=== PATIENT | female | born 1970 | race Caucasian/White ===

== ENCOUNTER → 2020-02-21 12:20 | Outpatient (CLI) | payer MEDICARE, SELFPAY ==
[2020-02-21 12:44] LABS: Basophils % 0.6 % (0.1-2.0); Eosinophils # 0.2 K/mm3 (0.0-0.4); Eosinophils % 2.7 % (0.1-12.0); Hematocrit 36.1 % (37.0-47.0); Hemoglobin 11.5 g/dL (12.2-16.2); Lymphocytes % 28.5 % (10-50); Mean Corpuscular HGB Conc 31.9 g/dL (31.8-35.4); Mean Corpuscular Hemoglobin 27.2 pg (27.0-31.2); Mean Corpuscular Volume 85.2 fl (81-99); Mean Platelet Volume 7.9 fl (7.4-10.4); Monocytes # 0.5 K/mm3 (0.1-1.0); Monocytes % 7.2 % (1.7-9.3); Neutrophils # 4.3 K/mm3 (1.8-7.8); Neutrophils % 60.9 % (37.0-80.0); Platelet Count 233 K/mm3 (142-424); Red Blood Count 4.23 M/mm3 (4.20-5.40); Red Cell Distribution Width 15.6 % (11.5-17.5)
[2020-02-21 12:52] LABS: Prothrombin Time 20.6 seconds (9.4-11.8)
[2020-02-21 13:22] LABS: Alanine Aminotransferase 22 U/L (12-78); Albumin Level 3.9 g/dl (3.5-5.0); Albumin/Globulin Ratio 1.2 (1.1-1.8); Alkaline Phosphatase 99 U/L (38-126); Anion Gap 14.6 mEq/L (5-15); Aspartate Amino Transferase 25 U/L (14-36); Bilirubin,Total 0.4 mg/dl (0.2-1.3); Blood Urea Nitrogen 14 mg/dl (7-17); Calcium 9.4 mg/dl (8.4-10.2); Carbon Dioxide 32 mmol/L (22.0-30.0); Chloride 97 mmol/L (98-107); Chol/HDL Ratio 5.8 (1-3.5); Cholesterol 236 mg/dl (140-200); Estimated Glomerular Filt Rate 105 ml/min (>60); GFR (African American) 128 ML/MIN (>60); Globulin 3.2 g/dL (1.3-3.2); Glucose 236 mg/dl (74-100); HDL Cholesterol 41 mg/dl (40-60); Potassium 4.6 mmoL/L (3.5-5.1); Sodium 139 mmol/L (136-145); Total Protein,Serum 7.1 g/dl (6.3-8.2); Triglycerides 318 mg/dl (30-150); VLDL Cholesterol 64 mg/dL (0-40)
[2020-02-21 13:33] LABS: Direct LDL Cholesterol 128.52 mg/dL (100-129)
[2020-02-21 13:44] LABS: Hemoglobin A1C 9.4 % (4.0-6.0)
[2020-02-21 13:54] LABS: Thyroid Stimulating Hormone 1.32 uIU/mL (0.465-4.68)
== END ==
PROVIDERS: Visit Provider Family Medicine
DX: Z95.828 Presence of other vascular implants and grafts (principal); E11.9 Type 2 diabetes mellitus without complications; I10 Essential (primary) hypertension; Z51.81 Encounter for therapeutic drug level monitoring; Z79.01 Long term (current) use of anticoagulants; Z79.84 Long term (current) use of oral hypoglycemic drugs
CPT/HCPCS: 36415; 80053; 80061; 83036; 84443; 85025; 85610

== ENCOUNTER → 2020-05-13 17:21 | Outpatient (CLI) | payer MEDICARE, SELFPAY ==
[2020-05-15 16:03] LABS: Covid-19 Nasal PCR Sendout Lex Not Detected
== END ==
PROVIDERS: PCP Family Medicine; Visit Provider Family Medicine
DX: Z03.818 Encounter for observation for suspected exposure to other biological agents ruled out (principal)
CPT/HCPCS: U0004

== ENCOUNTER → 2020-05-21 09:21 | Outpatient (CLI) | payer MEDICARE, SELFPAY ==
[2020-05-21 11:34] LABS: INR 1.52 (0.9-1.1); Prothrombin Time 16.2 seconds (9.4-11.8)
[2020-05-21 16:01] LABS: Hemoglobin A1C 9.4 % (4.0-6.0)
== END ==
PROVIDERS: Visit Provider Family Medicine
DX: Z95.828 Presence of other vascular implants and grafts (principal); E11.9 Type 2 diabetes mellitus without complications; Z79.84 Long term (current) use of oral hypoglycemic drugs
CPT/HCPCS: 36415; 83036; 85610

== ENCOUNTER → 2020-07-02 10:05 | Outpatient (CLI) | payer MEDICARE, SELFPAY ==
[2020-07-02 11:53] LABS: Chloride 100 mmol/L (98-107); Potassium 4.5 mmoL/L (3.5-5.1); Sodium 139 mmol/L (136-145)
[2020-07-02 11:56] LABS: Alanine Aminotransferase 17 U/L (12-78); Albumin Level 4.2 g/dl (3.5-5.0); Albumin/Globulin Ratio 1.2 (1.1-1.8); Alkaline Phosphatase 99 U/L (38-126); Anion Gap 10.5 mEq/L (5-15); Aspartate Amino Transferase 20 U/L (14-36); Bilirubin,Total 0.3 mg/dl (0.2-1.3); Blood Urea Nitrogen 16 mg/dl (7-17); Carbon Dioxide 33 mmol/L (22.0-30.0); Estimated Glomerular Filt Rate 105 ml/min (>60); GFR (African American) 127 ML/MIN (>60); Globulin 3.4 g/dL (1.3-3.2); Glucose 130 mg/dl (74-100); Total Protein,Serum 7.6 g/dl (6.3-8.2)
[2020-07-02 12:18] LABS: INR 1.91 (0.9-1.1)
[2020-07-02 12:41] LABS: Hemoglobin A1C 8.8 % (4.0-6.0)
[2020-07-02 18:55] LABS: Microalbumin/Creatinine Ratio 28.3
[2020-07-02 18:59] LABS: Basophils # 0.1 K/mm3 (0-0.2); Basophils % 0.8 % (0.1-2.0); Eosinophils # 0.2 K/mm3 (0.0-0.4); Eosinophils % 2.3 % (0.1-12.0); Hematocrit 38.9 % (37.0-47.0); Hemoglobin 11.5 g/dL (12.2-16.2); Lymphocytes # 2.8 K/mm3 (0.7-4.5); Mean Corpuscular HGB Conc 29.6 g/dL (31.8-35.4); Mean Corpuscular Hemoglobin 24.7 pg (27.0-31.2); Mean Corpuscular Volume 83.5 fl (81-99); Mean Platelet Volume 8.9 fl (7.4-10.4); Monocytes # 0.7 K/mm3 (0.1-1.0); Monocytes % 7.6 % (1.7-9.3); Neutrophils # 5.2 K/mm3 (1.8-7.8); Neutrophils % 58.2 % (37.0-80.0); Platelet Count 324 K/mm3 (142-424); Red Blood Count 4.66 M/mm3 (4.20-5.40); Red Cell Distribution Width 16.1 % (11.5-17.5); White Blood Count 8.9 K/mm3 (4.8-10.8)
[2020-07-02 19:02] LABS: Creatinine,Urine Random 77 mg/dL (Not Estab.)
[2020-07-02 19:56] LABS: Thyroid Stimulating Hormone 2.61 uIU/mL (0.465-4.68)
== END ==
LOC: LAB 11:54 → LAB.DROPOF 07-03 08:25 → LAB 07-03 08:25
PROVIDERS: Visit Provider Family Medicine
DX: Z95.828 Presence of other vascular implants and grafts (principal); E11.9 Type 2 diabetes mellitus without complications; Z79.84 Long term (current) use of oral hypoglycemic drugs; Z51.81 Encounter for therapeutic drug level monitoring; Z79.01 Long term (current) use of anticoagulants
CPT/HCPCS: 36415; 80053; 82043; 82570; 83036; 84443; 85025; 85610

== ENCOUNTER → 2020-11-04 15:01 | Outpatient (CLI) | payer MEDICARE, SELFPAY ==
[2020-11-04 16:17] LABS: Prothrombin Time 17.2 seconds (10.1-12.5)
[2020-11-04 16:40] LABS: Alanine Aminotransferase 18 U/L (12-78); Albumin Level 4.5 g/dl (3.5-5.0); Albumin/Globulin Ratio 1.3 (1.1-1.8); Alkaline Phosphatase 110 U/L (38-126); Anion Gap 10.6 mEq/L (5-15); Aspartate Amino Transferase 22 U/L (14-36); Bilirubin,Total 0.5 mg/dl (0.2-1.3); Blood Urea Nitrogen 23 mg/dl (7-17); Calcium 9.8 mg/dl (8.4-10.2); Carbon Dioxide 32 mmol/L (22.0-30.0); Chloride 98 mmol/L (98-107); Chol/HDL Ratio 5.2 (1-3.5); Cholesterol 248 mg/dl (140-200); Estimated Glomerular Filt Rate 105 ml/min (>60); GFR (African American) 127 ML/MIN (>60); Globulin 3.4 g/dL (1.3-3.2); Glucose 213 mg/dl (74-100); HDL Cholesterol 48 mg/dl (40-60); Potassium 4.6 mmoL/L (3.5-5.1); Sodium 136 mmol/L (136-145); Total Protein,Serum 7.9 g/dl (6.3-8.2); Triglycerides 326 mg/dl (30-150); VLDL Cholesterol 65 mg/dL (0-40)
[2020-11-04 16:51] LABS: Direct LDL Cholesterol 140.68 mg/dL (100-129)
[2020-11-04 17:09] LABS: Thyroid Stimulating Hormone 1.37 uIU/mL (0.465-4.68)
== END ==
PROVIDERS: Visit Provider Family Medicine
DX: K29.70 Gastritis, unspecified, without bleeding (principal); E11.9 Type 2 diabetes mellitus without complications; E78.5 Hyperlipidemia, unspecified; Z51.81 Encounter for therapeutic drug level monitoring; Z79.01 Long term (current) use of anticoagulants; Z79.4 Long term (current) use of insulin
CPT/HCPCS: 36415; 80053; 80061; 84443; 85610

== ENCOUNTER → 2020-11-12 10:53 | Outpatient (CLI) | payer MEDICARE, SELFPAY ==
[2020-11-12 11:45] LABS: Basophils # 0.1 K/mm3 (0-0.2); Basophils % 0.6 % (0.1-2.0); Eosinophils # 0.4 K/mm3 (0.0-0.4); Eosinophils % 4.1 % (0.1-12.0); Hematocrit 36.7 % (37.0-47.0); Hemoglobin 11.3 g/dL (12.2-16.2); Lymphocytes # 2.8 K/mm3 (0.7-4.5); Mean Corpuscular HGB Conc 30.9 g/dL (31.8-35.4); Mean Corpuscular Hemoglobin 23.6 pg (27.0-31.2); Mean Corpuscular Volume 76.4 fl (81-99); Mean Platelet Volume 7.6 fl (7.4-10.4); Monocytes # 0.5 K/mm3 (0.1-1.0); Monocytes % 6.2 % (1.7-9.3); Neutrophils # 4.8 K/mm3 (1.8-7.8); Neutrophils % 56.1 % (37.0-80.0); Platelet Count 309 K/mm3 (142-424); Red Cell Distribution Width 16.4 % (11.5-17.5); White Blood Count 8.6 K/mm3 (4.8-10.8)
[2020-11-12 12:10] LABS: Alanine Aminotransferase 21 U/L (12-78); Albumin Level 4.5 g/dl (3.5-5.0); Albumin/Globulin Ratio 1.4 (1.1-1.8); Alkaline Phosphatase 91 U/L (38-126); Anion Gap 15.3 mEq/L (5-15); Aspartate Amino Transferase 23 U/L (14-36); Bilirubin,Total 0.4 mg/dl (0.2-1.3); Blood Urea Nitrogen 30 mg/dl (7-17); Calcium 9.4 mg/dl (8.4-10.2); Carbon Dioxide 26 mmol/L (22.0-30.0); Chloride 101 mmol/L (98-107); Estimated Glomerular Filt Rate 88 ml/min (>60); GFR (African American) 106 ML/MIN (>60); Globulin 3.3 g/dL (1.3-3.2); Glucose 203 mg/dl (74-100); Potassium 5.3 mmoL/L (3.5-5.1); Sodium 137 mmol/L (136-145); Total Protein,Serum 7.8 g/dl (6.3-8.2)
[2020-11-12 15:36] LABS: Hemoglobin A1C 8.7 % (4.0-6.0)
[2020-11-12 18:56] LABS: INR 2.37 (0.9-1.1); Prothrombin Time 26.2 seconds (10.1-12.5)
== END ==
PROVIDERS: Visit Provider Family Medicine
DX: E11.9 Type 2 diabetes mellitus without complications (principal); R79.1 Abnormal coagulation profile; Z95.828 Presence of other vascular implants and grafts; F33.8 Other recurrent depressive disorders; Z79.4 Long term (current) use of insulin
CPT/HCPCS: 36415; 80053; 83036; 85025; 85610

== ENCOUNTER → 2021-01-07 10:36 | Outpatient (CLI) | payer MEDICARE, SELFPAY ==
[2021-01-07 11:09] LABS: Prothrombin Time 19.3 seconds (10.1-12.5)
[2021-01-07 11:13] LABS: Hemoglobin A1C 7.9 % (4.0-6.0)
== END ==
PROVIDERS: Visit Provider Family Medicine
DX: Z51.81 Encounter for therapeutic drug level monitoring (principal); Z79.01 Long term (current) use of anticoagulants; E11.9 Type 2 diabetes mellitus without complications; Z79.4 Long term (current) use of insulin
CPT/HCPCS: 36415; 83036; 85610

== ENCOUNTER → 2021-04-29 09:28 | Outpatient (CLI) | payer MEDICARE, SELFPAY ==
[2021-04-29 10:05] LABS: Basophils # 0.1 K/mm3 (0-0.2); Basophils % 1.3 % (0.1-2.0); Eosinophils # 0.2 K/mm3 (0.0-0.4); Eosinophils % 2.6 % (0.1-12.0); Hematocrit 34.8 % (37.0-47.0); Lymphocytes # 2.4 K/mm3 (0.7-4.5); Lymphocytes % 27.8 % (10-50); Mean Corpuscular HGB Conc 28.6 g/dL (31.8-35.4); Mean Corpuscular Hemoglobin 23.5 pg (27.0-31.2); Mean Platelet Volume 7.4 fl (7.4-10.4); Monocytes # 0.6 K/mm3 (0.1-1.0); Monocytes % 6.8 % (1.7-9.3); Neutrophils # 5.3 K/mm3 (1.8-7.8); Neutrophils % 61.4 % (37.0-80.0); Platelet Count 289 K/mm3 (142-424); Red Blood Count 4.25 M/mm3 (4.20-5.40); Red Cell Distribution Width 15.1 % (11.5-17.5); White Blood Count 8.6 K/mm3 (4.8-10.8)
[2021-04-29 10:11] LABS: INR 4.47 (0.9-1.1)
[2021-04-29 10:17] LABS: Prothrombin Time 45.2 seconds (10.1-12.5)
[2021-04-29 10:34] LABS: Alanine Aminotransferase 18 U/L (12-78); Albumin Level 3.9 g/dl (3.5-5.0); Albumin/Globulin Ratio 1.3 (1.1-1.8); Alkaline Phosphatase 95 U/L (38-126); Aspartate Amino Transferase 23 U/L (14-36); Bilirubin,Total 0.2 mg/dl (0.2-1.3); Blood Urea Nitrogen 15 mg/dl (7-17); Calcium 8.7 mg/dl (8.4-10.2); Carbon Dioxide 32 mmol/L (22.0-30.0); Chloride 103 mmol/L (98-107); Chol/HDL Ratio 4.3 (1-3.5); Cholesterol 204 mg/dl (140-200); Estimated Glomerular Filt Rate 168 ml/min (>60); GFR (African American) 203 ML/MIN (>60); Globulin 2.9 g/dL (1.3-3.2); Glucose 126 mg/dl (74-100); HDL Cholesterol 47 mg/dl (40-60); Sodium 142 mmol/L (136-145); Total Protein,Serum 6.8 g/dl (6.3-8.2); Triglycerides 213 mg/dl (30-150); VLDL Cholesterol 43 mg/dL (0-40)
[2021-04-29 10:45] LABS: Direct LDL Cholesterol 113.14 mg/dL (100-129)
[2021-04-29 10:59] LABS: Hemoglobin A1C 7.4 % (4.0-6.0)
[2021-04-29 11:04] LABS: Thyroid Stimulating Hormone 2.34 uIU/mL (0.465-4.68)
== END ==
PROVIDERS: Visit Provider Family Medicine
DX: E11.9 Type 2 diabetes mellitus without complications (principal); E87.6 Hypokalemia; Z51.81 Encounter for therapeutic drug level monitoring; Z79.01 Long term (current) use of anticoagulants; Z79.4 Long term (current) use of insulin
CPT/HCPCS: 36415; 80053; 80061; 83036; 84443; 85025; 85610

== ENCOUNTER → 2021-05-19 15:21 | Outpatient (CLI) | payer MEDICARE, SELFPAY | PROVIDERS: PCP Family Medicine; Visit Provider Nurse Practitioner | DX: Z20.822 Contact with and (suspected) exposure to COVID-19 (principal) | CPT/HCPCS: C9803; U0003; U0005 ==

== ENCOUNTER → 2021-08-29 14:05 | Outpatient (CLI) | payer MEDICARE, SELFPAY ==
[2021-08-29 14:54] LABS: Hemoglobin A1C 7.7 % (4.0-6.0)
[2021-08-29 15:08] LABS: Chloride 100 mmol/L (98-107); Potassium 4.5 mmoL/L (3.5-5.1); Sodium 138 mmol/L (136-145)
[2021-08-29 15:10] LABS: Alanine Aminotransferase 16 U/L (12-78); Alkaline Phosphatase 101 U/L (38-126); Aspartate Amino Transferase 19 U/L (14-36); Bilirubin,Total 0.3 mg/dl (0.2-1.3); Blood Urea Nitrogen 7 mg/dl (7-17); Estimated Glomerular Filt Rate 129 ml/min (>60); GFR (African American) 156 ML/MIN (>60)
[2021-08-29 15:11] LABS: Albumin Level 4.1 g/dl (3.5-5.0); Albumin/Globulin Ratio 1.3 (1.1-1.8); Anion Gap 11.5 mEq/L (5-15); Calcium 8.8 mg/dl (8.4-10.2); Carbon Dioxide 31 mmol/L (22.0-30.0); Globulin 3.2 g/dL (1.3-3.2); Glucose 92 mg/dl (74-100); HDL Cholesterol 43 mg/dl (40-60); Total Protein,Serum 7.3 g/dl (6.3-8.2)
[2021-08-29 15:17] LABS: Triglycerides 283 mg/dl (30-150); VLDL Cholesterol 57 mg/dL (0-40)
[2021-08-29 15:38] LABS: INR 2.12 (0.9-1.1); Prothrombin Time 22.7 seconds (10.1-12.5)
[2021-08-29 15:52] LABS: Chol/HDL Ratio 4.7 (1-3.5); Cholesterol 203 mg/dl (140-200)
[2021-08-29 16:03] LABS: Direct LDL Cholesterol 100.86 mg/dL (100-129)
== END ==
PROVIDERS: Visit Provider Family Medicine
DX: K29.70 Gastritis, unspecified, without bleeding (principal); E78.5 Hyperlipidemia, unspecified; E11.9 Type 2 diabetes mellitus without complications; Z51.81 Encounter for therapeutic drug level monitoring; Z79.01 Long term (current) use of anticoagulants; Z79.4 Long term (current) use of insulin
CPT/HCPCS: 36415; 80053; 80061; 83036; 85610

== ENCOUNTER → 2021-11-25 12:22 | Outpatient (CLI) | payer MEDICARE, SELFPAY ==
[2021-11-25 13:20] LABS: Basophils # 0.1 K/mm3 (0-0.2); Basophils % 0.5 % (0.1-2.0); Eosinophils # 0.1 K/mm3 (0.0-0.4); Eosinophils % 1.3 % (0.1-12.0); Hematocrit 33.5 % (37.0-47.0); Hemoglobin 10.6 g/dL (12.2-16.2); Lymphocytes # 2.5 K/mm3 (0.7-4.5); Lymphocytes % 24.4 % (10-50); Mean Corpuscular HGB Conc 31.6 g/dL (31.8-35.4); Mean Corpuscular Hemoglobin 23.4 pg (27.0-31.2); Mean Corpuscular Volume 74.2 fl (81-99); Monocytes # 0.7 K/mm3 (0.1-1.0); Monocytes % 6.9 % (1.7-9.3); Neutrophils # 6.7 K/mm3 (1.8-7.8); Neutrophils % 66.8 % (37.0-80.0); Platelet Count 302 K/mm3 (142-424); Red Blood Count 4.51 M/mm3 (4.20-5.40); Red Cell Distribution Width 17.5 % (11.5-17.5); White Blood Count 10.1 K/mm3 (4.8-10.8)
[2021-11-25 13:25] LABS: INR 2.66 (0.9-1.1)
[2021-11-25 13:35] LABS: Alanine Aminotransferase 23 U/L (12-78); Albumin Level 3.9 g/dl (3.5-5.0); Albumin/Globulin Ratio 1.2 (1.1-1.8); Alkaline Phosphatase 109 U/L (38-126); Anion Gap 11.9 mEq/L (5-15); Aspartate Amino Transferase 28 U/L (14-36); Blood Urea Nitrogen 11 mg/dl (7-17); Calcium 9.1 mg/dl (8.4-10.2); Carbon Dioxide 30 mmol/L (22.0-30.0); Chloride 100 mmol/L (98-107); Chol/HDL Ratio 5.4 (1-3.5); Cholesterol 210 mg/dl (140-200); Estimated Glomerular Filt Rate 105 ml/min (>60); GFR (African American) 127 ML/MIN (>60); Globulin 3.2 g/dL (1.3-3.2); Glucose 109 mg/dl (74-100); HDL Cholesterol 39 mg/dl (40-60); Potassium 3.9 mmoL/L (3.5-5.1); Sodium 138 mmol/L (136-145); Total Protein,Serum 7.1 g/dl (6.3-8.2); Triglycerides 301 mg/dl (30-150); VLDL Cholesterol 60 mg/dL (0-40)
[2021-11-25 13:46] LABS: Bilirubin,Total < 0.1 mg/dl (0.2-1.3); Direct LDL Cholesterol 97.96 mg/dL (100-129)
[2021-11-25 13:55] LABS: Hemoglobin A1C 8.6 % (4.0-6.0)
[2021-11-25 14:09] LABS: Thyroid Stimulating Hormone 1.34 uIU/mL (0.465-4.68)
== END ==
PROVIDERS: PCP Family Medicine; Visit Provider Family Medicine
DX: K29.70 Gastritis, unspecified, without bleeding (principal); E11.9 Type 2 diabetes mellitus without complications; E78.5 Hyperlipidemia, unspecified; Z79.4 Long term (current) use of insulin
CPT/HCPCS: 36415; 80053; 80061; 83036; 84443; 85025; 85610

== ENCOUNTER 2022-01-27 13:32 | Emergency (ER) | payer MEDICARE, SELFPAY ==
[2022-01-27 13:55] VITALS: BP 178/85; PULSE 86; RESP 16; TEMP 36.8; O2SAT 95; BMI 47.2
[2022-01-27 13:55] LABS: UTC Strep Screen (Rapid) Negative (Negative)
--- NOTE | 2022-01-27 13:59 | HMH.EDUTC ---
[facility] [place] Disposition Clinical Impression: Pharyngitis Qualifiers: Pharyngitis/tonsillitis etiology: unspecified etiology Qualified Code(s): J02.9 - Acute pharyngitis, unspecified Disposition: Home, Self-Care Condition on Discharge: Good Instructions: Strep Throat, DI for Strep Throat Additional Instructions: Drink plenty of fluids. Take tylenol or ibuprofen for pain or fever. Take the medications as directed. Follow up with your regular doctor. GO TO THE ER FOR ANY WORSENING SYMPTOMS Prescriptions: clindamycin HCL [Cleocin HCl] 300 mg PO TID 10 Days #30 cap Transmission Status: Received by [id number] methylPREDNISolone [Medrol] 4 mg PO DIRECTED 6 Days #21 packet Transmission Status: Received by [id number] Referrals: Javier Nguyen MD [Primary Care Provider] - Time of Disposition: 14:28 Medical Decision Making - Medical Records Medical records reviewed: No: I reviewed the patient's medical records. - Anival Inquiry Pt receiving controlled substance: No Vital Signs: 01/27/22 13:55 01/27/22 14:30 Temperature 98.3 F 98.3 F Temperature Source Oral Pulse Rate 86 Pulse Rate [Left] 86 Respiratory Rate 16 16 Blood Pressure 178/85 H Blood Pressure [Right Arm] 178/85 H Blood Pressure Mean [Right Arm] 116 02 Sat by Pulse Oximetry 95 - Lab Data Lab Results 01/27/22 13:47: Strep Scn Rapid Clinic Negative Orders (Tests/Meds): ORDERS Category Date Time Status Strep Screen Confirmation Stat Micro 01/27/22 13:47 Received [facility] [place] HPI - General Stated complaint: Sore throat, ear pain Time Seen by Provider: 01/27/22 14:00 Mode of Arrival: Ambulatory Source of Information: Patient Limitations: No Limitations Description of Symptoms (Recalled from Triage Doc. by RN): patient comes in with complaints of right ear pain and sore throat. symptoms began wednesday. HEENT Symptoms (Recalled from RN notes): Yes Resp Symptoms (Recalled from RN notes): No Skin Symptoms (Recalled from RN notes): No MS Symptoms (Recalled from RN notes): No Functional Status (Recalled from RN notes): n/a - History of Present Illness Provider Complaint: She states that for the past 2 days she has had a worsening sore throat. She has had chills, but no documented fever. she has a dry cough but no chest congestion. - Related Data Home Medications Medication Instructions Recorded Confirmed Insulin Glargine/Lixisenatide 50 unit SQ DAILY 01/27/22 01/27/22 [Soliqua 100/33] Metformin HCl [Metformin HCl ER] 500 mg PO QID 01/27/22 01/27/22 Warfarin Sodium See Rx Instructions .ROUTE .COMPLEX 01/27/22 01/27/22 lisinopriL [Lisinopril] 40 mg PO DAILY 01/27/22 01/27/22 Previous Rx's Medication Instructions Recorded blood sugar diagnostic See Rx Instructions .ROUTE 05/03/20 .MEDSUPPLY #100 each blood-glucose meter See Rx Instructions .ROUTE 05/03/20 .MEDSUPPLY #1 each blood-glucose meter See Rx Instructions .ROUTE 07/02/20 .MEDSUPPLY #1 each lancets 33 gauge See Rx Instructions .ROUTE 07/02/20 .MEDSUPPLY #100 each metoprolol succinate 100 mg 100 mg PO DAILY #90 tab 10/28/21 tablet,extended release 24 hr trazodone 150 mg tablet 150 mg PO QHS #90 tab 10/28/21 blood sugar diagnostic See Rx Instructions .ROUTE 11/10/21 .COMPLEX #100 each tizanidine 4 mg tablet 4 mg PO BID PRN #180 tab 11/25/21 venlafaxine 150 mg 150 mg PO DAILY #90 cap 11/25/21 capsule,extended release 24 hr phentermine 37.5 mg tablet 37.5 mg PO DAILY #30 tab 12/23/21 clindamycin HCL [Cleocin HCl] 300 mg PO TID 10 Days #30 cap 01/27/22 methylPREDNISolone [Medrol] 4 mg PO DIRECTED 6 Days #21 01/27/22 packet Allergies Allergy/AdvReac Type Severity Reaction Status Date / Time levocetirizine AdvReac Severe Chest Pain Verified 01/27/22 13:57 Penicillins AdvReac Severe Swelling Verified 01/27/22 13:57 of Lip/Tongue/Throat bupropion [From Wellbutrin] AdvReac Intermediate Verified
[2022-01-27 14:30] VITALS: BP 178/85; PULSE 86; RESP 16; TEMP 36.8
== END 2022-01-27 14:32 | disposition home or self-care (01) ==
PROVIDERS: Emergency Provider Nurse Practitioner Family; PCP Family Medicine
DX: J02.9 Acute pharyngitis, unspecified (principal)
CPT/HCPCS: 87880; 99212; G0463

== ENCOUNTER 2022-02-03 15:40 | Emergency (ER) | payer MEDICARE, SELFPAY ==
[2022-02-03 16:55] VITALS: BP 143/77; PULSE 88; RESP 21; TEMP 36.8; O2SAT 98; BMI 47.2
--- NOTE | 2022-02-03 17:19 | HMH.EDUTC ---
[facility] [place] Disposition Clinical Impression: Encounter for laboratory testing for COVID-19 virus Disposition: Home, Self-Care Condition on Discharge: Good Instructions: DI for COVID-19 (Suspected or Confirmed ), Preventing the Spread of Coronavirus Discharge Instructions Additional Instructions: *Monitor Temp, Over the counter Motrin or Tylenol as directed/as needed Tylenol every 4 hours and Motrin every 6 hours (as long as your family doctor has told you that you can take it) for fever or pain. and straight to ER if unable to lower temp less than 101.0 after medication given Follow up IMMEDIATELY for new or worsening symptoms or no Noticeable improvement over the next 48-72 hours. 911 for difficulty breathing or swallowing You were tested for today for COVID19 your test result should be back in the next 24-48 hours, you may check your results on the [facility] My Health Portal Make sure to take your Vitamins Vit. C Vit D and Zinc if you can take them Referrals: Javier Nguyen MD [Primary Care Provider] - As needed Forms: Work/School Release Medical Decision Making - Anival Inquiry Pt receiving controlled substance: No Anival was queried for this patient: No Vital Signs: 02/03/22 16:55 Temperature 98.3 F Temperature Source Oral Pulse Rate [Left Brachial] 88 Respiratory Rate 21 Blood Pressure [Left Arm] 143/77 H Blood Pressure Mean [Left Arm] 99 Blood Pressure Source [Left Arm] Automatic Cuff Blood Pressure Position [Left Arm] Sitting 02 Sat by Pulse Oximetry 98 Oxygen Delivery Method Room Air Orders (Tests/Meds): ORDERS Category Date Time Status Covid-19 Nasal PCR ([facility]) Routine Lab 02/03/22 16:50 Ordered [facility] [place] HPI - General Stated complaint: covid test Time Seen by Provider: 02/03/22 17:19 Mode of Arrival: Ambulatory Source of Information: Patient Limitations: No Limitations Description of Symptoms (Recalled from Triage Doc. by RN): COVID TEST D/T POSSIBLE EXPOSURE HEENT Symptoms (Recalled from RN notes): No Resp Symptoms (Recalled from RN notes): No Skin Symptoms (Recalled from RN notes): No MS Symptoms (Recalled from RN notes): No Functional Status (Recalled from RN notes): WNL - History of Present Illness Provider Complaint: Patient states she has been around her daughter that is having symptoms of COVID so she wanted to come in and get tested States that she was also around someone else that had COVID - Related Data Home Medications Medication Instructions Recorded Confirmed Insulin Glargine/Lixisenatide 50 unit SQ DAILY 01/27/22 01/27/22 [Soliqua 100/33] Metformin HCl [Metformin HCl ER] 500 mg PO QID 01/27/22 01/27/22 Warfarin Sodium See Rx Instructions .ROUTE .COMPLEX 01/27/22 01/27/22 lisinopriL [Lisinopril] 40 mg PO DAILY 01/27/22 01/27/22 Previous Rx's Medication Instructions Recorded blood sugar diagnostic See Rx Instructions .ROUTE 05/03/20 .MEDSUPPLY #100 each blood-glucose meter See Rx Instructions .ROUTE 05/03/20 .MEDSUPPLY #1 each blood-glucose meter See Rx Instructions .ROUTE 07/02/20 .MEDSUPPLY #1 each lancets 33 gauge See Rx Instructions .ROUTE 07/02/20 .MEDSUPPLY #100 each metoprolol succinate 100 mg 100 mg PO DAILY #90 tab 10/28/21 tablet,extended release 24 hr trazodone 150 mg tablet 150 mg PO QHS #90 tab 10/28/21 tizanidine 4 mg tablet 4 mg PO BID PRN #180 tab 11/25/21 venlafaxine 150 mg 150 mg PO DAILY #90 cap 11/25/21 capsule,extended release 24 hr phentermine 37.5 mg tablet 37.5 mg PO DAILY #30 tab 12/23/21 clindamycin HCL [Cleocin HCl] 300 mg PO TID 10 Days #30 cap 01/27/22 methylPREDNISolone [Medrol] 4 mg PO DIRECTED 6 Days #21 01/27/22 packet blood sugar diagnostic See Rx Instructions .ROUTE 01/30/22 .COMPLEX #100 each Allergies Allergy/AdvReac Type Severity Reaction Status Date / Time levocetirizine AdvReac Severe Chest Pain Verified 01/27/22 13:57 Penicillins AdvReac Severe Swelling Verified 01/27/22 13:57 of Lip/To
[2022-02-03 17:36] VITALS: BP 143/77; PULSE 88; RESP 21; TEMP 36.8; O2SAT 98
== END 2022-02-03 17:46 | disposition home or self-care (01) ==
PROVIDERS: Emergency Provider Nurse Practitioner; PCP Family Medicine
DX: Z20.822 Contact with and (suspected) exposure to COVID-19 (principal)
CPT/HCPCS: 99212; C9803; G0463; U0003; U0005

== ENCOUNTER → 2022-02-25 12:34 | Outpatient (CLI) | payer MEDICARE, SELFPAY | PROVIDERS: PCP Family Medicine; Visit Provider Family Medicine | DX: Z20.822 Contact with and (suspected) exposure to COVID-19 (principal) | CPT/HCPCS: C9803; U0003; U0005 ==

== ENCOUNTER → 2022-06-23 12:49 | Outpatient (CLI) | payer MEDICARE, SELFPAY ==
--- NOTE | 2022-06-23 12:53 | XR_ITS ---
FINAL REPORT CLINICAL HISTORY: PAIN FINDINGS: SACRUM/COCCYX 2 views were obtained. There is no acute fracture or dislocation. The visualized joint spaces are intact. There is no soft tissue abnormality. IMPRESSION: No acute bony abnormality. Reviewed, Interpreted and Dictated by Raulito Quevedo MD Transcribed by Trudy Agustin Authenticated and [facility]
[2022-06-23 16:00] LABS: Thyroid Stimulating Hormone 1.52 uIU/mL (0.465-4.68)
== END ==
LOC: LAB 12:50
PROVIDERS: PCP Family Medicine; Visit Provider Family Medicine
DX: M53.3 Sacrococcygeal disorders, not elsewhere classified (principal); F32.A Depression, unspecified
CPT/HCPCS: 36415; 72220; 84443

== ENCOUNTER → 2022-07-21 11:13 | Outpatient (CLI) | payer MEDICARE, SELFPAY ==
[2022-07-21 11:58] LABS: Prothrombin Time 53.9 seconds (10.1-12.5)
== END ==
PROVIDERS: PCP Family Medicine; Visit Provider Family Medicine
DX: K29.70 Gastritis, unspecified, without bleeding (principal)
CPT/HCPCS: 36415; 85610

== ENCOUNTER → 2023-01-28 23:28 | Outpatient (CLI) | payer MEDICARE, SELFPAY ==
[2023-01-28 19:01] LABS: Basophils # 0.1 K/mm3 (0-0.2); Basophils % 0.8 % (0.1-2.0); Eosinophils # 0.2 K/mm3 (0.0-0.4); Eosinophils % 2.4 % (0.1-12.0); Hematocrit 33.7 % (37.0-47.0); Hemoglobin 10.4 g/dL (12.2-16.2); Lymphocytes # 2.2 K/mm3 (0.7-4.5); Lymphocytes % 25.1 % (10-50); Mean Corpuscular Hemoglobin 23.5 pg (27.0-31.2); Mean Platelet Volume 8.1 fl (7.4-10.4); Monocytes # 0.8 K/mm3 (0.1-1.0); Monocytes % 9.4 % (1.7-9.3); Neutrophils # 5.5 K/mm3 (1.8-7.8); Neutrophils % 62.3 % (37.0-80.0); Platelet Count 292 K/mm3 (142-424); Red Blood Count 4.43 M/mm3 (4.20-5.40); Red Cell Distribution Width 17.3 % (11.5-17.5); White Blood Count 8.8 K/mm3 (4.8-10.8)
[2023-01-28 19:06] LABS: Alanine Aminotransferase 22 U/L (12-78); Albumin Level 3.8 g/dl (3.5-5.0); Albumin/Globulin Ratio 1.1 (1.1-1.8); Alkaline Phosphatase 110 U/L (38-126); Anion Gap 8.6 mEq/L (5-15); Aspartate Amino Transferase 26 U/L (14-36); Blood Urea Nitrogen 11 mg/dl (7-17); Calcium 8.8 mg/dl (8.4-10.2); Carbon Dioxide 33 mmol/L (22.0-30.0); Chloride 105 mmol/L (98-107); Chol/HDL Ratio 5.8 (1-3.5); Cholesterol 197 mg/dl (140-200); Estimated Glomerular Filt Rate 129 ml/min (>60); GFR (African American) 156 ML/MIN (>60); Globulin 3.5 g/dL (1.3-3.2); Glucose 142 mg/dl (74-100); HDL Cholesterol 34 mg/dl (40-60); Potassium 4.6 mmoL/L (3.5-5.1); Sodium 142 mmol/L (136-145); Total Protein,Serum 7.3 g/dl (6.3-8.2); Triglycerides 370 mg/dl (30-150); VLDL Cholesterol 74 mg/dL (0-40)
[2023-01-28 19:17] LABS: Bilirubin,Total 0.1 mg/dl (0.2-1.3); Direct LDL Cholesterol 92.96 mg/dL (100-129)
[2023-01-28 19:36] LABS: Thyroid Stimulating Hormone 0.78 uIU/mL (0.465-4.68)
[2023-01-28 20:35] LABS: Hemoglobin A1C 6.4 % (4.0-6.0)
== END ==
PROVIDERS: PCP Family Medicine; Visit Provider Family Medicine
DX: E11.9 Type 2 diabetes mellitus without complications (principal); Z79.4 Long term (current) use of insulin; Z79.899 Other long term (current) drug therapy
CPT/HCPCS: 80053; 80061; 83036; 84443; 85025

== ENCOUNTER 2023-09-08 10:40 | Outpatient (CLI) | payer MEDICARE, SELFPAY ==
[2023-09-08 11:12] LABS: Basophils # 0.1 K/mm3 (0-0.2); Basophils % 0.5 % (0.1-2.0); Eosinophils # 0.3 K/mm3 (0.0-0.4); Eosinophils % 3.8 % (0.1-12.0); Hematocrit 34.4 % (37.0-47.0); Hemoglobin 10.4 g/dL (12.2-16.2); Lymphocytes # 2.2 K/mm3 (0.7-4.5); Lymphocytes % 24.6 % (10-50); Mean Corpuscular HGB Conc 30.2 g/dL (31.8-35.4); Mean Corpuscular Hemoglobin 22.4 pg (27.0-31.2); Mean Corpuscular Volume 74.3 fl (81-99); Mean Platelet Volume 8.1 fl (7.4-10.4); Monocytes # 0.7 K/mm3 (0.1-1.0); Monocytes % 8.1 % (1.7-9.3); Neutrophils # 5.7 K/mm3 (1.8-7.8); Neutrophils % 63.1 % (37.0-80.0); Platelet Count 321 K/mm3 (142-424); Red Blood Count 4.64 M/mm3 (4.20-5.40); Red Cell Distribution Width 17.7 % (11.5-17.5)
[2023-09-08 12:29] LABS: Albumin Level 4.2 g/dl (3.5-5.0); Alkaline Phosphatase 85 U/L (38-126); Anion Gap 14.2 mEq/L (5-15); Bilirubin,Direct 0.2 mg/dl (0.0-0.4); Bilirubin,Indirect 0.1 mg/dL (0.0-0.9); Bilirubin,Total 0.3 mg/dl (0.2-1.3); Bilirubin,Unconjugated 0.1 mg/dL (0.0-1.1); Blood Urea Nitrogen 18 mg/dl (7-17); Calcium 9.1 mg/dl (8.4-10.2); Carbon Dioxide 26 mmol/L (22.0-30.0); Chloride 103 mmol/L (98-107); Chol/HDL Ratio 5.4 (1-3.5); Cholesterol 162 mg/dl (140-200); Estimated Glomerular Filt Rate 87 ml/min (>60); GFR (African American) 105 ML/MIN (>60); Glucose 119 mg/dl (74-100); HDL Cholesterol 30 mg/dl (40-60); Magnesium 1.8 mg/dl (1.6-2.3); Potassium 4.2 mmoL/L (3.5-5.1); Sodium 139 mmol/L (136-145); Total Protein,Serum 7.2 g/dl (6.3-8.2); Triglycerides 119 mg/dl (30-150); VLDL Cholesterol 24 mg/dL (0-40)
[2023-09-08 12:30] LABS: Alanine Aminotransferase 24 U/L (12-78); Aspartate Amino Transferase 25 U/L (14-36)
[2023-09-08 12:40] LABS: Direct LDL Cholesterol 91.52 mg/dL (100-129)
[2023-09-08 12:59] LABS: Thyroid Stimulating Hormone 1.85 uIU/mL (0.465-4.68)
[2023-09-08 13:01] LABS: Free T4 (Free Thyroxine) 1.21 ng/dl (0.78-2.19)
== END 2023-09-08 23:59 ==
LOC: LAB 10:41
PROVIDERS: PCP Family Medicine; Visit Provider Nurse Practitioner Family
DX: R55 Syncope and collapse (principal); R42 Dizziness and giddiness; R06.00 Dyspnea, unspecified; I48.0 Paroxysmal atrial fibrillation; R94.31 Abnormal electrocardiogram [ECG] [EKG]; I48.91 Unspecified atrial fibrillation; E66.9 Obesity, unspecified; E11.9 Type 2 diabetes mellitus without complications; I10 Essential (primary) hypertension; Z51.81 Encounter for therapeutic drug level monitoring; Z79.01 Long term (current) use of anticoagulants; Z86.711 Personal history of pulmonary embolism; Z68.42 Body mass index [BMI] 45.0-49.9, adult; Z79.84 Long term (current) use of oral hypoglycemic drugs
CPT/HCPCS: 36415; 80048; 80061; 80076; 83735; 84439; 84443; 85025; 93270

== ENCOUNTER 2023-09-21 11:02 | Outpatient (CLI) | payer MEDICARE, SELFPAY ==
--- NOTE | 2023-09-21 11:02 | NM_ITS ---
APPROVED REPORT Exam: Nuclear Stress Test Indication: HTN, DM , FM HX, SOB, PALPITATIONS, FATIGUE, ABN EKG Patient Location: Outpatient Stress Tech: Desiree Bernard [place] Tech:Charlotte Walton, KIP RT(R)(N) Ht: 5 ft 9 in Wt: 311 lbs Bra Size: 48C HR: 99 bpm BP: 134/75 mmHg BSA: 2.49 m2 Rhythm: NSR TID: 1.19 BMI: 45.9 History: HTN, DM , FM HX, SOB, PALPITATIONS, FATIGUE, ABN EKG Procedure: Patient received 0.4 mg of intravenous Lexiscan, resting heart rate 99 bpm, resting blood pressure 134/75 mmHg, with Lexiscan maximum heart rate achieved was 111 bpm which is % of the maximum predicted heart rate and blood pressure was 144/69 mmHg. With Lexiscan, patient denied any complaint of chest pain. Cardiac Stress and Resting SPECT Images: Cardiac Stress and Resting SPECT images were obtained using technetium 99m Myoview 30.6 mCi stress and 10.05 mCi at rest. Technically difficult study due to reduced radiotracer activity in the resting images. This may affect the diagnostic interpretation of the study findings. Resting and stress imaging in supine and prone positions demonstrate no evidence of fixed or reversible perfusion defects. Gated imaging demonstrates mildly reduced global LV systolic function. LVEF is calculated at 41%. However, note, the LVEF may be inaccurate in the setting of atrial fibrillation Conclusion: No evidence of fixed or reversible perfusion defects. Gated imaging demonstrates mildly reduced global LV systolic function. LVEF is calculated at 41%. However, note, the LVEF may be inaccurate in the setting of atrial fibrillation Electronically signed by : Lori Andrews MD 09/22/2023 10:47:22
--- NOTE | 2023-09-21 12:45 | CA_ITS ---
APPROVED REPORT EXAM: Comprehensive 2D, Doppler, and color-flow Echocardiogram Hand Inspector: Carina Pollard CRT Ht: 5 ft 9 in Wt: 311lbs BSA: 2.49 BP: 136/62 mmHg Indications: Shortness of Breath, Atrial Fibrillation, Diabetes, Obesity, Hyperlipidemia, Hypertension/HDD 2D Dimensions LA Volume 73.60 mL LA Volume Index 28.90 mL/m2 (M/F) 16-34 M-Mode Dimensions RVDd 3.05 cm (0.9-2.6) LA Diam 4.82 cm (1.9-4.0) LVDd 5.51 cm (3.5-5.7) LVDs 4.30 cm (3.5-5.7) IVSd 1.61 cm (0.6-1.1) PWd 0.76 cm (0.6-1.1) EF (Teich) 43.90% FS 22.00% EDV (Teich) 148.00 mL TAPSE 1.79 (<1.7) ESV (Teich) 83.10 mL Aortic Valve AO Peak GR. 5.10 mmHg Pulmonary Valve PV Peak Velocity 78.0 (50-150 cm/s) Tricuspid Valve TR P. Velocity 332.00 cm/s RAP Estimate 10.00 mmHg RVSP 54.00 mmHg Left Ventricle The left ventricle is normal size. The left ventricular systolic function is normal. The left ventricular ejection fraction is within the normal range. There is increased LV wall thickness. There is normal LV segmental wall motion. Diastolic function is indeterminate. LVEF is 55%. Right Ventricle The right ventricle is normal size. The right ventricular systolic function is normal. Atria The left atrium is mildly dilated. The right atrium size is normal. Aortic Valve The aortic valve is mildly thickened. There is no aortic valvular stenosis. No aortic regurgitation is present. Mitral Valve The mitral valve is mildly thickened. No evidence of mitral valve stenosis. There is no mitral valve regurgitation noted. Tricuspid Valve The tricuspid valve leaflets are thin and pliable. Mild tricuspid regurgitation. RVSP is 20-25 mmHg. Pulmonic Valve The pulmonary valve is normal in structure. Trace pulmonic regurgitation. Great Vessels The aortic root is normal in size. The ascending aorta is normal in size. IVC is normal in size and collapses >50% with inspiration. Pericardium There is no pericardial effusion. Other Information Study Quality: Fair Conclusion Normal biventricular systolic function. Mild TR. Electronically signed by : Lori Andrews MD 09/22/2023 10:51:36
[2023-09-21] MEDS: ISOTOPE MYOVIEW (PER STUDY) 1 DOSE IV (13:09)
[2023-09-21] MEDS: SODIUM CHLORIDE 0.9% 10ML SYR (RAD ONLY) 10 ML IV ×2 (13:09)
[2023-09-21] MEDS: REGADENOSON 0.4MG/5ML SYRINGE 0.400000000000000022 MG IV (13:09)
--- NOTE | 2023-09-21 13:25 | CA_ITS ---
APPROVED REPORT Exam: Pharmacologic Technologist: Desiree Wall, Ht: 5 ft 9 in Wt: 311 lbs BSA: 2.49 m2 HR: 101 bpm BP: 134/75 mmHg Rhythm: NSR Medical History Medications: Warfarin,,,,, Metoprolol,,,,, Metformin,,,,, INSULIN,,,,, Tizanidine,,,,, Prozac,,,,, LoTREL,,,,, TUrsemide,,,,, Stress Test Details Test: LEXISCAN Reason for pharmacologic stress test: physical limitation. HR Resting HR: 99 bpm Max Heart Rate (APMHR): 165 bpm Max HR Achieved: 111 bpm Target HR (85% APMHR): 140 bpm % of APMHR: 67 Recovery HR: 92 bpm BP Resting BP: 134.0/75.0 mmHg Max BP: 144.0/69.0 mmHg Recovery BP: 131.0/66.0 mmHg ECG Resting ECG: Afib, low voltage throughout Stress ECG: No significant ST changes Arrhythmia: None Clinical Exercise duration: 03:59 min Highest Stage Achieved: Stress ECG Conclusion Symptoms: SOA, lightheaded Arrhythmias/Ectopy: Atrial fibrillation ST-T Changes: Unremarkable Lexiscan stress test. Myoview images are reported separately. Test Summary REST . . . . . . . Resting REST 05:55 . . 99 . 134/ 75 . . Stage 1 01:00 . . 100 . . . . Stage 2 01:00 . . 101 . . . . Stage 3 01:00 . . 97 . 144/ 69 . . Stage 4 00:59 . . 102 . . . Stop exercise at 03:59 RECOVERY 01:00 . . 100 . 136/ 65 . . RECOVERY 02:00 . . 93 . 136/ 65 . . RECOVERY 02:23 . . 90 . 131/ 66 . . Electronically signed by : Lori Andrews MD 09/22/2023 10:45:16
== END 2023-09-21 23:59 ==
LOC: RAD 11:02
PROVIDERS: PCP Family Medicine; Visit Provider Nurse Practitioner Family
DX: R06.00 Dyspnea, unspecified (principal); R55 Syncope and collapse; R42 Dizziness and giddiness; I48.0 Paroxysmal atrial fibrillation; R94.31 Abnormal electrocardiogram [ECG] [EKG]; I48.91 Unspecified atrial fibrillation; E66.9 Obesity, unspecified; E11.9 Type 2 diabetes mellitus without complications; I10 Essential (primary) hypertension; Z86.711 Personal history of pulmonary embolism; Z51.81 Encounter for therapeutic drug level monitoring; Z79.01 Long term (current) use of anticoagulants; Z79.4 Long term (current) use of insulin; Z68.42 Body mass index [BMI] 45.0-49.9, adult
CPT/HCPCS: 78452; 93017; 93018; 93306; A9502; J2785

== ENCOUNTER 2023-10-05 11:07 | Observation (INO) | payer MEDICARE, SELFPAY ==
--- NOTE | 2023-10-05 11:21 | PC.NURSE ---
PT TO FLOOR VIA W/C AT 1111
--- NOTE | 2023-10-05 11:37 | XR_ITS ---
FINAL REPORT CLINICAL HISTORY: SOB pt in afib COMPARISON: None FINDINGS: A portable view of the chest was obtained. The heart size is at the upper limits of normal.. The lungs are clear. There is no pleural effusion or pneumothorax. IMPRESSION: No acute process on this portable exam. Reviewed, Interpreted and Dictated by Indra Martinez MD Transcribed by Miranda Rose Authenticated and [facility][1]
[2023-10-05 11:48] VITALS: BP 152/92; PULSE 96; RESP 17; TEMP 36.9; O2SAT 97
--- NOTE | 2023-10-05 11:53 | PC.NURSE ---
told nurse about high b/p and hr
[2023-10-05 11:59] VITALS: BMI 43.6
[2023-10-05 12:00] VITALS: PULSE 120
[2023-10-05 12:05] LABS: Basophils # 0.1 K/mm3 (0-0.2); Basophils % 0.7 % (0.1-2.0); Eosinophils # 0.2 K/mm3 (0.0-0.4); Hematocrit 35.1 % (37.0-47.0); Hemoglobin 10.6 g/dL (12.2-16.2); Lymphocytes # 2.4 K/mm3 (0.7-4.5); Lymphocytes % 25.3 % (10-50); Mean Corpuscular HGB Conc 30.1 g/dL (31.8-35.4); Mean Corpuscular Volume 72.9 fl (81-99); Mean Platelet Volume 7.9 fl (7.4-10.4); Monocytes # 0.6 K/mm3 (0.1-1.0); Neutrophils # 6.2 K/mm3 (1.8-7.8); Neutrophils % 65.9 % (37.0-80.0); Platelet Count 286 K/mm3 (142-424); Red Blood Count 4.82 M/mm3 (4.20-5.40); White Blood Count 9.4 K/mm3 (4.8-10.8)
--- NOTE | 2023-10-05 12:06 | HMH.PHAINT1 ---
Pharmacy Intervention Comments: HOME MEDICATION LIST VERIFIED VIA OUTSIDE PHARMACY AND PHYSICAN NOTE
[2023-10-05 12:21] LABS: INR 1.67 (0.9-1.1); Prothrombin Time 17.4 seconds (10.1-12.5)
[2023-10-05 12:25] LABS: Alanine Aminotransferase 23 U/L (12-78); Albumin Level 4.1 g/dl (3.5-5.0); Albumin/Globulin Ratio 1.2 (1.1-1.8); Alkaline Phosphatase 95 U/L (38-126); Anion Gap 12.8 mEq/L (5-15); Aspartate Amino Transferase 31 U/L (14-36); Bilirubin,Total 0.4 mg/dl (0.2-1.3); Blood Urea Nitrogen 12 mg/dl (7-17); Calcium 9.5 mg/dl (8.4-10.2); Carbon Dioxide 23 mmol/L (22.0-30.0); Chloride 107 mmol/L (98-107); Creatinine Clearance Estimated 111 mL/min (50-200); Estimated Glomerular Filt Rate 104 ml/min (>60); GFR (African American) 126 ML/MIN (>60); Globulin 3.4 g/dL (1.3-3.2); Glucose 107 mg/dl (74-100); Potassium 3.8 mmoL/L (3.5-5.1); Sodium 139 mmol/L (136-145); Total Protein,Serum 7.5 g/dl (6.3-8.2)
[2023-10-05 12:34] LABS: NT Pro Brain Natriuretic Pep. 1230 pg/mL (0-125)
[2023-10-05 15:49] VITALS: BP 141/71; PULSE 118; RESP 18; TEMP 36.6; O2SAT 95
[2023-10-05 16:00] VITALS: PULSE 130
--- NOTE | 2023-10-05 16:18 | P.HP_ITS ---
History of Present Illness *Admission Date: 10/05/23 *Reason for visit:: dizziness PFSH [facility] Disclaimer: The information contained in this section may have been updated after the patient was seen, as this information can be updated by other users. Medical History (Updated 10/05/23 @ 12:54 by Magalie Odell, ELISSA) Osteoarthritis Hyperlipidemia Presence of IVC filter Syncope Paroxysmal A-fib Abnormal electrocardiogram [ECG] [EKG] Afib History of pulmonary embolism Essential hypertension Mood disorder Family history of liver disease Diabetes Surgical History History of bariatric surgery History of tonsillectomy and adenoidectomy S/P hysterectomy with oophorectomy Family History (Updated 10/05/23 @ 12:56 by Magalie Odell, ELISSA) Other Family history of liver disease Social History (Updated 10/05/23 @ 11:41 by Magalie Odell RN) Smoking Status: Former smoker smoking status stop date: 1999 alcohol intake: never substance use type: denies use current occupational status: unemployed Travel in the last 8 weeks: None housing: house Review of Systems Review of Systems Review of systems:: pertinent systems reviewed and negative unless documented below Meds Home Medications and Allergies Home Medications Medication Instructions Recorded Confirmed Type torsemide 20 mg tablet 20 mg PO DAILY PRN edema #30 tabs 03/04/23 10/05/23 Rx fluoxetine 40 mg capsule (Prozac) 40 mg PO BID #180 caps 09/27/23 10/05/23 Rx insulin glargine 100 60 unit SQ DAILY 10/05/23 10/05/23 History unit-lixisenatide 33 mcg/mL subcutaneous pen (Soliqua 100/33) metformin 500 mg tablet,extended 1,000 mg PO BID 10/05/23 10/05/23 History release 24 hr metoprolol succinate 100 mg 100 mg PO BID HR 10/05/23 10/05/23 History tablet,extended release 24 hr propafenone 150 mg tablet 150 mg PO Q8H afib 10/05/23 10/05/23 History tizanidine 4 mg tablet 4 mg PO HS Muscle Spasticity 10/05/23 10/05/23 History warfarin 5 mg tablet 7.5 mg PO HS History of Blood clots 10/05/23 10/05/23 History New Prescriptions to Start Prescriptions: Allergies Allergy/AdvReac Type Severity Reaction Status Date / Time levocetirizine AdvReac Severe Chest Pain Verified 10/05/23 10:14 Penicillins AdvReac Severe Swelling Verified 10/05/23 10:14 of Lip/Tongue/Throat bupropion [From Wellbutrin] AdvReac Intermediate Verified 10/05/23 10:14 Exam Data for Last 24 hours Vital signs and Labs for Last 24 Hours: Temp Pulse Resp BP Pulse Ox O2 Del Method 97.9 F 130 H 18 141/71 H 95 Room Air 10/05/23 15:49 10/05/23 16:00 10/05/23 15:49 10/05/23 15:49 10/05/23 15:49 10/05/23 15:49 Laboratory Results - last 24 hr 10/05/23 11:49: WBC 9.4, RBC 4.82, Hgb 10.6 L, Hct 35.1 L, MCV 72.9 L, MCH 22.0 L, MCHC 30.1 L, RDW 18.0 H, Plt Count 286, MPV 7.9, Neut % (Auto) 65.9, Lymph % (Auto) 25.3, Bell % (Auto) 6.0, Eos % (Auto) 2.0, Baso % (Auto) 0.7, Neut # (Auto) 6.2, Lymph # (Auto) 2.4, Bell # (Auto) 0.6, Eos # (Auto) 0.2, Baso # (Auto) 0.1, PT 17.4 H, INR 1.67 H, Sodium 139, Potassium 3.8, Chloride 107, Carbon Dioxide 23, Anion Gap 12.8, BUN 12, Creatinine 0.60, Estimated Creat Clear 111, Estimated GFR 104, Est GFR ( Amer) 126, Glucose 107 H, Calcium 9.5, Total Bilirubin 0.4, AST 31, ALT 23, Alkaline Phosphatase 95, NT-Pro-B Natriuret Pep 1230 H, Total Protein 7.5, Albumin 4.1, Globulin 3.4 H, Albumin/Globulin Ratio 1.2 I & O for Last 24 hours: Intake & Output 10/02/23 10/03/23 10/04/23 10/05/23 23:59 23:59 23:59 23:59 Output Total 0 / 0 Balance 0 / 0 Weight 134.037 kg Constitutional Constitutional: no acute distress *Routine HEENT Exam Head: Present normocephalic Eye: Present EOMI and PERRL ENT: Present mucous membranes moist *Routine Neck Exam Neck: Present supple; Absent lymphadenopathy *Routine Respiratory Exam Respiratory: Present CTA bilaterally *Routine Cardiovascular Exam Cardiovascular: Present RRR *Routine Abdominal Exam Abdominal: Present soft and normoactive bowel sounds; Absent tenderness *Routine Rectal Exam Rectal:: deferred *Routine Genitalia Exam Genitalia:: deferred *Routine Extremities Exam Extremities: Absent cyanosis, clubbing or edema *Routine Skin Exam Skin: Present warm; Absent rash *Routine Neurological Exam Neurological: Present alert and oriented X3 Assessment and Plan *Assessment and plan (1) Dizziness: Status: Acute Category: Medical Code(s): R42 - Dizziness and giddiness (2) Atrial fibrillation: Status: Acute Qualifiers: Atrial fibrillation type: persistent (not longstanding) Qualified Code(s): I48.19 - Other persistent atrial fibrillation Category: Medical Code(s): I48.91 - Unspecified atrial fibrillation (3) Obesity: Status: Acute Qualifiers: Body mass index: BMI 45.0-49.9 Obesity classification: adult class 3 (BMI >= 40) Obesity type: due to excess calories Serious obesity comorbidity presence: without serious comorbidity Qualified Code(s): E66.01 - Morbid (severe) obesity due to excess calories; Z68.42 - Body mass index [BMI] 45.0-49.9, adult Category: Medical Code(s): E66.9 - Obesity, unspecified (4) [place] filter in place: Status: Acute Category: Medical Code(s): Z95.828 - Presence of other vascular implants and grafts (5) Hyperlipidemia: Status: Acute Qualifiers: Hyperlipidemia type: mixed hyperlipidemia Qualified Code(s): E78.2 - Mixed hyperlipidemia Category: Medical Code(s): E78.5 - Hyperlipidemia, unspecified (6) Syncope: Status: Acute Qualifiers: Syncope type: unspecified Qualified Code(s): R55 - Syncope and collapse Category: Medical Code(s): R55 - Syncope and collapse (7) History of pulmonary embolism: Status: Acute Category: Medical Code(s): Z86.711 - Personal history of pulmonary embolism (8) Paroxysmal A-fib: Status: Acute Category: Medical Code(s): I48.0 - Paroxysmal atrial fibrillation Plan Patient is a 53-year-old female with past medical history of paroxysmal atrial fibrillation hypertension diabetes mellitus hyperlipidemia pulmonary embolism status post IVC filter on Coumadin who presents to the hospital from cardiology office due to complaints of lightheadedness dizziness. According to patient she has been noticing fatigue lightheadedness dizziness intermittently, she was reportedly also having palpitations. Patient also had an event where she passed out about a week ago especially while standing up. Patient denied chest pain shortness of breath nausea vomiting diarrhea constipation dysuria fevers and chills. Patient mentions she has been compliant with her medications. Assessment and plan Lightheadedness dizziness palpitations, syncope likely secondary to arrhythmia Monitor on cardiac telemetry Consult cardiology N.p.o. after midnight in anticipation of cardiac procedure likely cardioversion Resume home Coumadin, check INR, if subtherapeutic INR will bridge with Lovenox Diabetes mellitus Insulin sliding scale, resume home metformin history of PE s/p IVC filter, continue Coumadin DVT PPx - coumadin, lovenox bridging
[2023-10-05 16:20] LABS: POC Glucose,Bedside 147 (70-110)
[2023-10-05] MEDS: ENOXAPARIN 100MG/ML SYRINGE 135 MG SQ (17:11)
[2023-10-05 19:53] VITALS: BP 119/79; PULSE 116; RESP 18; TEMP 36.8; O2SAT 96
[2023-10-05 20:00] VITALS: PULSE 121; PULSE 137
[2023-10-05] MEDS: FLUOXETINE 40 MG 40 EACH PO (20:09)
[2023-10-05] MEDS: TIZANIDINE 4MG TABLET 4 MG PO (20:10)
[2023-10-05] MEDS: WARFARIN 5MG TABLET 7.5 MG PO (20:10)
[2023-10-05] MEDS: METOPROLOL SUCCINATE XL 100MG TABLET 100 MG PO (20:11)
[2023-10-05] MEDS: humaLOG 100 UNITS/ML 3ML VIAL (SSI) SQ (20:13)
[2023-10-05 20:33] LABS: POC Glucose,Bedside 241 (70-110)
[2023-10-06] VITALS (14 sets, daily range): BP systolic 106–156; BP diastolic 59–84; PULSE 58–100; RESP 16–21; TEMP 36.4–36.7; O2SAT 95–98; BMI 44.7
[2023-10-06] MEDS: MELATONIN 5MG TABLET 10 MG PO (00:31)
[2023-10-06] MEDS: ENOXAPARIN 100MG/ML SYRINGE 135 MG SQ (05:08)
--- NOTE | 2023-10-06 05:13 | PC.NURSE ---
Patient has had a good night. Patient has not been able to rest much due to not being able to get comfortable. Has been up and down from the chair to the bed and up to the bathroom. Patient remains in afib on the monitor. No other issue were stated by the patient during the night.
[2023-10-06 05:55] LABS: POC Glucose,Bedside 144 (70-110)
--- NOTE | 2023-10-06 06:00 | ECG_ITS ---
APPROVED REPORT Exam: Resting ECG HR:93 bpm ECG Measurements Heart Rate 93 AXES QRSd 101 QRS -28 QT 369 T -12 QTc 419 Conclusion ATRIAL FIBRILLATION BORDERLINE LEFT AXIS DEVIATION [QRS AXIS < -20] ABNORMAL RHYTHM ECG UNCONFIRMED REPORT Electronically signed by : DOUG DIXON, 10/06/2023 06:51:19
[2023-10-06 06:02] LABS: Basophils # 0.1 K/mm3 (0-0.2); Basophils % 0.7 % (0.1-2.0); Eosinophils # 0.3 K/mm3 (0.0-0.4); Hematocrit 35.1 % (37.0-47.0); Hemoglobin 10.5 g/dL (12.2-16.2); Lymphocytes # 2.7 K/mm3 (0.7-4.5); Lymphocytes % 32.6 % (10-50); Mean Corpuscular HGB Conc 29.8 g/dL (31.8-35.4); Mean Corpuscular Volume 73.6 fl (81-99); Mean Platelet Volume 7.8 fl (7.4-10.4); Monocytes # 0.7 K/mm3 (0.1-1.0); Monocytes % 8.3 % (1.7-9.3); Neutrophils # 4.6 K/mm3 (1.8-7.8); Neutrophils % 55.3 % (37.0-80.0); Platelet Count 289 K/mm3 (142-424); Red Blood Count 4.76 M/mm3 (4.20-5.40); Red Cell Distribution Width 18.1 % (11.5-17.5); White Blood Count 8.4 K/mm3 (4.8-10.8)
[2023-10-06 06:06] LABS: Chloride 108 mmol/L (98-107); Sodium 140 mmol/L (136-145)
[2023-10-06 06:07] LABS: Potassium 3.9 mmoL/L (3.5-5.1)
[2023-10-06 06:09] LABS: Anion Gap 9.9 mEq/L (5-15); Blood Urea Nitrogen 12 mg/dl (7-17); Carbon Dioxide 26 mmol/L (22.0-30.0); Creatinine Clearance Estimated 128 mL/min (50-200); Estimated Glomerular Filt Rate 128 ml/min (>60); GFR (African American) 155 ML/MIN (>60)
[2023-10-06 06:10] LABS: Glucose 143 mg/dl (74-100); INR 1.73 (0.9-1.1)
[2023-10-06] MEDS: METFORMIN 500MG TABLET 1000 MG PO (07:25)
[2023-10-06] MEDS: METOPROLOL SUCCINATE XL 100MG TABLET 100 MG PO (08:25)
[2023-10-06] MEDS: FLUOXETINE 20MG CAPSULE 40 MG PO (08:25)
--- NOTE | 2023-10-06 10:36 | EXP.CARD.CON ---
History of Present Illness History of Present Illness Consult date: 10/06/23 Requesting physician: Scar Andrew Consult reason: atrial fibrillation Chief complaint: A-fib RVR, weakness History of present illness: 53-year-old white female established patient of our office with history of chronic A-fib, questionably since 2019. She also has history of PE status post IVC filter. She is currently maintained on Coumadin due to insurance not covering DOAC's. She has BMI 44, obstructive sleep apnea, diabetes. She was seen in the office recently complaining of worsening palpitations and fatigue. 2-week heart monitor noted 100% A-fib which was rate controlled. She underwent 2D echo which was unremarkable and a stress test which showed no defects. We discussed in the office doing ablation versus medical therapy with LIA/DCCV. She requested the later and we have that arranged but she presented in the interim to the office yesterday stating she held her metoprolol after a fall at home which she now attributes to her trazodone. When she stopped the metoprolol she developed A-fib RVR 130s yesterday. We admitted overnight and she is scheduled for LIA/DCCV this afternoon. [facility] Disclaimer: The information contained in this section may have been updated after the patient was seen, as this information can be updated by other users. Medical History Osteoarthritis Hyperlipidemia Presence of IVC filter Syncope Paroxysmal A-fib Abnormal electrocardiogram [ECG] [EKG] Afib History of pulmonary embolism Essential hypertension Mood disorder Family history of liver disease Diabetes Surgical History History of bariatric surgery History of tonsillectomy and adenoidectomy S/P hysterectomy with oophorectomy Family History Other Family history of liver disease Social History Smoking Status: Former smoker smoking status stop date: 1999 alcohol intake: never substance use type: denies use current occupational status: unemployed Travel in the last 8 weeks: None housing: house Review of Systems Constitutional Constitutional: Denies fatigue and Denies weakness Eyes Eyes: Denies loss of vision ENT Ears, Nose, Mouth, and Throat: Denies hearing loss and Denies vertigo *Cardiovascular Cardiovascular: Denies chest pain, Denies dyspnea, Reports irregular heart rhythm, Reports rapid heart rate and Denies syncope *Respiratory Respiratory: Denies cough and Denies dyspnea *Gastrointestinal Gastrointestinal: Denies change in stool character, Denies nausea and Denies vomiting *Musculoskeletal Musculoskeletal: Denies muscle weakness Integumentary/Breasts Skin/Breast: Denies changing lesions *Neurologic Neurologic: Denies loss of vision, Denies syncope, Denies vertigo and Denies weakness Endocrine Endocrine: Denies fatigue Exam Data for Last 24 hours Vital signs and Labs for Last 24 Hours: Temp Pulse Resp BP Pulse Ox O2 Del Method 97.9 F 92 H 19 134/84 98 Room Air 10/06/23 08:00 10/06/23 08:00 10/06/23 08:00 10/06/23 08:00 10/06/23 08:00 10/06/23 09:00 Laboratory Results - last 24 hr 10/05/23 11:49: WBC 9.4, RBC 4.82, Hgb 10.6 L, Hct 35.1 L, MCV 72.9 L, MCH 22.0 L, MCHC 30.1 L, RDW 18.0 H, Plt Count 286, MPV 7.9, Neut % (Auto) 65.9, Lymph % (Auto) 25.3, [place] % (Auto) 6.0, Eos % (Auto) 2.0, Baso % (Auto) 0.7, Neut # (Auto) 6.2, Lymph # (Auto) 2.4, [place] # (Auto) 0.6, Eos # (Auto) 0.2, Baso # (Auto) 0.1, PT 17.4 H, INR 1.67 H, Sodium 139, Potassium 3.8, Chloride 107, Carbon Dioxide 23, Anion Gap 12.8, BUN 12, Creatinine 0.60, Estimated Creat Clear 111, Estimated GFR 104, Est GFR ( Amer) 126, Glucose 107 H, Calcium 9.5, Total Bilirubin 0.4, AST 31, ALT 23, Alkaline Phosphatase 95, NT-Pro-B Natriuret Pep 1230 H, Total Protein 7.5, Albumin 4.1, Globulin 3.4 H, Albumin/Globulin Ratio 1.2 10/05/23 16:14: POC Glucose 147 H 10/05/23 20:00: POC Glucose 241 H 10/06/23 05:08: POC Glucose 144 H 10/06/23 05:31: WBC 8.4, RBC 4.76, Hgb 10.5 L, Hct 35.1 L, MCV 73.6 L, MCH 22.0 L, MCHC 29.8 L, RDW 18.1 H, Plt Count 289, MPV 7.8, Neut % (Auto) 55.3, Lymph % (Auto) 32.6, [place] % (Auto) 8.3, Eos % (Auto) 3.0, Baso % (Auto) 0.7, Neut # (Auto) 4.6, Lymph # (Auto) 2.7, [place] # (Auto) 0.7, Eos # (Auto) 0.3, Baso # (Auto) 0.1, PT 18.0 H, INR 1.73 H, Sodium 140, Potassium 3.9, Chloride 108 H, Carbon Dioxide 26, Anion Gap 9.9, BUN 12, Creatinine 0.50 L, Estimated Creat Clear 128, Estimated GFR 128, Est GFR ( Amer) 155 D, Glucose 143 H D, Calcium 9.0 I & O for Last 24 hours: Intake & Output 10/03/23 10/04/23 10/05/23 10/06/23 23:59 23:59 23:59 23:59 Intake Total 920 / 920 0 / 0 Output Total 0 / 0 0 / 0 Balance 920 / 920 0 / 0 Weight 295 lb 8 oz 302 lb Constitutional Constitutional: no acute distress and cooperative Comments: obese *Routine HEENT Exam Eye: Present PERRL *Routine Respiratory Exam Respiratory: Present CTA bilaterally; Absent accessory muscle use, wheezes or crackles *Routine Cardiovascular Exam Cardiovascular: Present Normal S1, Normal S2 and irregularly irregular; Absent murmur, gallop or rubs *Routine Abdominal Exam Abdominal: Present soft; Absent tenderness *Routine Extremities Exam Extremities: Present pulses intact; Absent cyanosis or edema *Routine Skin Exam Skin: Present intact; Absent erythema or wounds *Routine Neurological Exam Neurological: Present alert and oriented X3 Routine Psychiatric Exam Psychiatric: Present cooperative Meds Home Medications and Allergies Home Medications Medication Instructions Recorded Confirmed Type torsemide 20 mg tablet 20 mg PO DAILY PRN edema #30 tabs 03/04/23 10/05/23 Rx fluoxetine 40 mg capsule (Prozac) 40 mg PO BID #180 caps 09/27/23 10/05/23 Rx insulin glargine 100 60 unit SQ DAILY 10/05/23 10/05/23 History unit-lixisenatide 33 mcg/mL subcutaneous pen (Soliqua 100/33) metformin 500 mg tablet,extended 1,000 mg PO BID 10/05/23 10/05/23 History release 24 hr metoprolol succinate 100 mg 100 mg PO BID HR 10/05/23 10/05/23 History tablet,extended release 24 hr propafenone 150 mg tablet 150 mg PO Q8H afib 10/05/23 10/05/23 History tizanidine 4 mg tablet 4 mg PO HS Muscle Spasticity 10/05/23 10/05/23 History warfarin 5 mg tablet 7.5 mg PO HS History of Blood clots 10/05/23 10/05/23 History New Prescriptions to Start Prescriptions: Allergies Allergy/AdvReac Type Severity Reaction Status Date / Time levocetirizine AdvReac Severe Chest Pain Verified 10/05/23 10:14 Penicillins AdvReac Severe Swelling Verified 10/05/23 10:14 of Lip/Tongue/Throat bupropion [From Wellbutrin] AdvReac Intermediate Verified 10/05/23 10:14 Assessment and Plan *Assessment and plan (1) Dizziness: Status: Acute Category: Medical Code(s): R42 - Dizziness and giddiness (2) Atrial fibrillation: Status: Acute Qualifiers: Atrial fibrillation type: persistent (not longstanding) Qualified Code(s): I48.19 - Other persistent atrial fibrillation Category: Medical Code(s): I48.91 - Unspecified atrial fibrillation (3) Obesity: Status: Acute Qualifiers: Body mass index: BMI 45.0-49.9 Obesity classification: adult class 3 (BMI >= 40) Obesity type: due to excess calories Serious obesity comorbidity presence: without serious comorbidity Qualified Code(s): E66.01 - Morbid (severe) obesity due to excess calories; Z68.42 - Body mass index [BMI] 45.0-49.9, adult Category: Medical Code(s): E66.9 - Obesity, unspecified (4) [place] filter in place: Status: Acute Category: Medical Code(s): Z95.828 - Presence of other vascular implants and grafts (5) Hyperlipidemia: Status: Acute Qualifiers: Hyperlipidemia type: mixed hyperlipidemia Qualified Code(s): E78.2 - Mixed hyperlipidemia Category: Medical Code(s): E78.5 - Hyperlipidemia, unspecified (6) Syncope: Status: Acute Qualifiers: Syncope type: unspecified Qualified Code(s): R55 - Syncope and collapse Category: Medical Code(s): R55 - Syncope and collapse (7) History of pulmonary embolism: Status: Acute Category: Medical Code(s): Z86.711 - Personal history of pulmonary embolism (8) Paroxysmal A-fib: Status: Acute Category: Medical Code(s): I48.0 - Paroxysmal atrial fibrillation Plan A-fib RVR - known dx, perm A-fib - was RVR secondary to holding her metoprolol - LIA/DCCV today, start Propafenone afterwards - INR is 1.7 so she is getting Lovenox here and *may need bridge at discharge* - we can uptitrate Propafenone outpatient as needed. If she fails med therapy, can consider ablation Hx of VTE s/p IVC Filter - Cont Coumading (ins won't cover DOAC) Morbid Obesity, BMI 44 - cont weight loss efforts DM-II - on Soliqua (Lantus/GLP-1 combo) Likely ok for DC home after LIA/DCCV this afternoon. Addendum: LIA/DCCV succesful conversion to SR without LV thrombus. Pt can be discharged home on Lovenox bridge when ambulatory. She will start Propafenone today. F/u in our clinic 2 weeks.
[2023-10-06 10:55] LABS: POC Glucose,Bedside 127 (70-110)
--- NOTE | 2023-10-06 11:43 | EXP.ANES.CKL ---
[facility] Disclaimer: The information contained in this section may have been updated after the patient was seen, as this information can be updated by other users. Medical History Osteoarthritis Hyperlipidemia Presence of IVC filter Syncope Paroxysmal A-fib Abnormal electrocardiogram [ECG] [EKG] Afib History of pulmonary embolism Essential hypertension Mood disorder Family history of liver disease Diabetes Surgical History History of bariatric surgery History of tonsillectomy and adenoidectomy S/P hysterectomy with oophorectomy Family History Other Family history of liver disease Social History Smoking Status: Former smoker smoking status stop date: 1999 alcohol intake: never substance use type: denies use current occupational status: unemployed Travel in the last 8 weeks: None housing: house [facility] Anesthesia Checklist Patient Identification Patient Identification: Arm Band Structural Data Admitted From: Inpatient Planned Operative Procedure/s: LIA/Cardioversion Consent for Planned Operative Procedure(s) Verified: Yes Verified Documents: Surgical Consent and History and Physical NPO Status Verified Time NPO: 00:00 Additional verifications Anesthesia Reactions: No Airway Assessment Mallampati Score:: Class II C-Spine Mobility Assessed: Yes TMJ Mobility Assessed: Yes Dentition: Edentulous Neurological Assessment Level of Consciousness: Awake and Alert Anesthesia Plan Anesthesia Risk discussed: Yes Anesthesia Plan: Verified ASA Class: III Anesthesia Type: MAC
--- NOTE | 2023-10-06 12:00 | CA_ITS ---
APPROVED REPORT EXAM: Comprehensive 2D, Doppler, and color-flow Echocardiogram Slubber Machine Operator: Chela MedinaFAYE Ht: 5 ft 9 in Wt: 311lbs BSA: 2.49 BP: 165/99 mmHg Indications: A-FIB WITH CARDIOVERSION,HTN,DOA,FATIGUE,DM,OBESITY Procedure After obtaining informed consent, patient underwent transesophageal echo in the [facility]. Type of Sedation : MAC Sedation was administered by Norbert [email or web address] Sedation start time: 13:25 Case end Time: 13:40 The LIA was performed without complications. Synchronized Cardioversion acheived with 150 Joules after 1 attempt(s). Rhythm following Synchronized Cardioversion: Normal Sinus Rhythm Throughout the procedure, the blood pressure, pulse oximetry, cardiac rhythm, and rate were monitored. The patient tolerated the procedure without adverse effects. Recovery from conscious sedation was uneventful and vital signs were stable. Left Ventricle The left ventricle is normal size. The left ventricular systolic function is normal. The left ventricular ejection fraction is within the normal range. Proximal septal thickening is noted. LVEF is 60%. There is normal LV segmental wall motion. Right Ventricle The right ventricle is normal size. The right ventricular systolic function is normal. Atria The left atrium is mildly dilated. The right atrium size is normal. Small PFO is noted. Color Doppler demonstrates left to right interatrial shunt. Aortic Valve The aortic valve is mildly thickened. The aortic valve is trileaflet. There is no aortic valvular stenosis. Trace aortic regurgitation. Mitral Valve The mitral valve leaflets are mildly thickened. No evidence of mitral valve stenosis. Trace mitral regurgitation. Tricuspid Valve The tricuspid valve leaflets are thin and pliable. Mild tricuspid regurgitation. RVSP is 22 mmHg + RA pressure. Pulmonic Valve The pulmonary valve is normal in structure. Trace pulmonic regurgitation. Great Vessels The aortic root is normal in size. The ascending aorta is normal in size. Pericardium There is no pericardial effusion. Other Information Study Quality: Fair Conclusion Normal biventricular systolic function. Mild LA dilation. No significant valvular stenosis or regurgitation. No evidence of LA or TATYANA thrombus. Small PFO is present. Once LIA confirmed no evidence of LA or TATYANA thrombus, the patient underwent DCCV successfully, after which her rhythm converted to NSR. Electronically signed by : Lori Andrews MD 10/10/2023 21:59:31
--- NOTE | 2023-10-06 12:51 | SUR.OPER ---
1249- 150j shock delivered at this time by deisy anna. pt did not convert from first shock. pads adjusted at this time and pt shocked at 200j. pt converted to sinus rhythm. vss
--- NOTE | 2023-10-06 12:58 | ECG_ITS ---
APPROVED REPORT Exam: Resting ECG HR:58 bpm ECG Measurements Heart Rate 58 AXES MI 174 P 39 QRSd 102 QRS -33 QT 429 T -20 QTc 427 Conclusion SINUS BRADYCARDIA LEFT AXIS DEVIATION [QRS AXIS < -30] LOW QRS VOLTAGE IN PRECORDIAL LEADS [QRS DEFLECTION < 1.0 mV IN CHEST LEADS] PATTERN CONSISTENT WITH PULMONARY DISEASE MODERATE T-WAVE ABNORMALITY, CONSIDER ANTERIOR ISCHEMIA [-0.1+ mV T-WAVE IN V3/V4] ABNORMAL ECG UNCONFIRMED REPORT Electronically signed by : Chris Gonzalez MD 10/06/2023 17:15:37
--- NOTE | 2023-10-06 13:31 | PC.NURSE ---
Pt and family have been asking questions about when pt will be able to go home. pt had made the comment that she would just drive herself home. Pt was educated that since she was sedated she had to have someone drive her home. when I went back into room for more vital signs pt again made that comment and she was re-educated that she could not drive herself home after being sedated.
--- NOTE | 2023-10-06 14:28 | HMH.PHAINT1 ---
Pharmacy Intervention Comments: DISCHARGE MEDICATION COUNSELING WAS PROVIDED TO PATIENT ON ENOXAPARIN ON INDICATION, DOSE, AND POSSIBLE SIDE EFFECTS. PATIENT VERBALIZED UNDERSTANDING WITH N O FURTHER QUESTIONS.
--- NOTE | 2023-10-06 14:30 | EXP.DC.SUM ---
General Admission date:: 10/05/23 Discharge date: 10/06/23 HPI HPI HPI: Patient is a 53-year-old female with past medical history of paroxysmal atrial fibrillation hypertension diabetes mellitus hyperlipidemia pulmonary embolism status post IVC filter on Coumadin who presents to the hospital from cardiology office due to complaints of lightheadedness dizziness. According to patient she has been noticing fatigue lightheadedness dizziness intermittently, she was reportedly also having palpitations. Patient also had an event where she passed out about a week ago especially while standing up. Patient denied chest pain shortness of breath nausea vomiting diarrhea constipation dysuria fevers and chills. Patient mentions she has been compliant with her medications. Hospital Course Hospital Course Hospital Course: Patient is a 53-year-old female with past medical history of paroxysmal atrial fibrillation hypertension diabetes mellitus hyperlipidemia pulmonary embolism status post IVC filter on Coumadin who presents to the hospital from cardiology office due to complaints of lightheadedness dizziness. According to patient she has been noticing fatigue lightheadedness dizziness intermittently, she was reportedly also having palpitations. Patient also had an event where she passed out about a week ago especially while standing up. Patient denied chest pain shortness of breath nausea vomiting diarrhea constipation dysuria fevers and chills. Patient mentions she has been compliant with her medications. Assessment and plan Lightheadedness dizziness palpitations, syncope likely secondary to arrhythmia - resolved s/p cardioversion - tolerated well, converted in sinus rhythm, patient is stable for dc per cardiology, dc on lovenox bridge with coumadin and f/u as OP Diabetes mellitus - stable Exam Data for Last 24 hours Vital signs and Labs for Last 24 Hours: Temp Pulse Resp BP Pulse Ox O2 Del Method 97.8 F 69 18 133/81 97 Room Air 10/06/23 13:20 10/06/23 14:05 10/06/23 14:05 10/06/23 14:05 10/06/23 14:05 10/06/23 14:05 Laboratory Results - last 24 hr 10/05/23 16:14: POC Glucose 147 H 10/05/23 20:00: POC Glucose 241 H 10/06/23 05:08: POC Glucose 144 H 10/06/23 05:31: WBC 8.4, RBC 4.76, Hgb 10.5 L, Hct 35.1 L, MCV 73.6 L, MCH 22.0 L, MCHC 29.8 L, RDW 18.1 H, Plt Count 289, MPV 7.8, Neut % (Auto) 55.3, Lymph % (Auto) 32.6, [facility] % (Auto) 8.3, Eos % (Auto) 3.0, Baso % (Auto) 0.7, Neut # (Auto) 4.6, Lymph # (Auto) 2.7, [facility] [facility] # (Auto) 0.7, Eos # (Auto) 0.3, Baso # (Auto) 0.1, PT 18.0 H, INR 1.73 H, Sodium 140, Potassium 3.9, Chloride 108 H, Carbon Dioxide 26, Anion Gap 9.9, BUN 12, Creatinine 0.50 L, Estimated Creat Clear 128, Estimated GFR 128, Est GFR ( Amer) 155 D, Glucose 143 H D, Calcium 9.0 10/06/23 10:49: POC Glucose 127 H I & O for Last 24 hours: Intake & Output 10/03/23 10/04/23 10/05/23 10/06/23 23:59 23:59 23:59 23:59 Intake Total 920 / 920 0 / 0 Output Total 0 / 0 0 / 0 Balance 920 / 920 0 / 0 Weight 134.037 kg 136.985 kg Constitutional Constitutional: no acute distress *Routine HEENT Exam Head: Present normocephalic Eye: Present EOMI and PERRL ENT: Present mucous membranes moist *Routine Neck Exam Neck: Present supple; Absent lymphadenopathy *Routine Respiratory Exam Respiratory: Present CTA bilaterally *Routine Cardiovascular Exam Cardiovascular: Present RRR *Routine Abdominal Exam Abdominal: Present soft and normoactive bowel sounds; Absent tenderness *Routine Extremities Exam Extremities: Absent cyanosis, clubbing or edema *Routine Skin Exam Skin: Present warm; Absent rash *Routine Neurological Exam Neurological: Present alert and oriented X3 Results Data Completed and Pending Labs on day of discharge: Labs from last 24 hours 10/06/23 10/06/23 10/06/23 10:49 05:31 05:08 WBC 8.4 RBC 4.76 Hgb 10.5 L Hct 35.1 L MCV 73.6 L MCH 22.0 L MCHC 29.8 L RDW 18.1 H Plt Count 289 MPV 7.8 Neut % (Auto) 55.3 Lymph % (Auto) 32.6 [place] % (Auto) 8.3 Eos % (Auto) 3.0 Baso % (Auto) 0.7 Neut # (Auto) 4.6 Lymph # (Auto) 2.7 [facility] # (Auto) 0.7 Eos # (Auto) 0.3 Baso # (Auto) 0.1 PT 18.0 H INR 1.73 H Sodium 140 Potassium 3.9 Chloride 108 H Carbon Dioxide 26 Anion Gap 9.9 BUN 12 Creatinine 0.50 L Estimated Creat Clear 128 Estimated GFR 128 Est GFR ( Amer) 155 D Glucose 143 H D POC Glucose 127 H 144 H Calcium 9.0 10/05/23 10/05/23 20:00 16:14 WBC RBC Hgb Hct MCV MCH MCHC RDW Plt Count MPV Neut % (Auto) Lymph % (Auto) [facility] % (Auto) Eos % (Auto) Baso % (Auto) Neut # (Auto) Lymph # (Auto) [facility] # (Auto) Eos # (Auto) Baso # (Auto) PT INR Sodium Potassium Chloride Carbon Dioxide Anion Gap BUN Creatinine Estimated Creat Clear Estimated GFR Est GFR ( Amer) Glucose POC Glucose 241 H 147 H Calcium DS: Diagnosis Discharge Diagnosis (1) Dizziness: Status: Acute Code(s): R42 - Dizziness and giddiness (2) Atrial fibrillation: Status: Acute Code(s): I48.91 - Unspecified atrial fibrillation Qualifiers: Atrial fibrillation type: persistent (not longstanding) Qualified Code(s): I48.19 - Other persistent atrial fibrillation (3) Obesity: Status: Acute Code(s): E66.9 - Obesity, unspecified Qualifiers: Obesity type: due to excess calories Obesity classification: adult class 3 (BMI >= 40) Serious obesity comorbidity presence: without serious comorbidity Body mass index: BMI 45.0-49.9 Qualified Code(s): E66.01 - Morbid (severe) obesity due to excess calories; Z68.42 - Body mass index [BMI] 45.0-49.9, adult (4) [place] filter in place: Status: Acute Code(s): Z95.828 - Presence of other vascular implants and grafts (5) Hyperlipidemia: Status: Acute Code(s): E78.5 - Hyperlipidemia, unspecified Qualifiers: Hyperlipidemia type: mixed hyperlipidemia Qualified Code(s): E78.2 - Mixed hyperlipidemia (6) Syncope: Status: Acute Code(s): R55 - Syncope and collapse Qualifiers: Syncope type: unspecified Qualified Code(s): R55 - Syncope and collapse (7) History of pulmonary embolism: Status: Acute Code(s): Z86.711 - Personal history of pulmonary embolism (8) Paroxysmal A-fib: Status: Acute Code(s): I48.0 - Paroxysmal atrial fibrillation Meds Home Medications and Allergies Home Medications Medication Instructions Recorded Confirmed Type torsemide 20 mg tablet 20 mg PO DAILY PRN edema #30 tabs 03/04/23 10/05/23 Rx fluoxetine 40 mg capsule (Prozac) 40 mg PO BID #180 caps 09/27/23 10/05/23 Rx insulin glargine 100 60 unit SQ DAILY 10/05/23 10/05/23 History unit-lixisenatide 33 mcg/mL subcutaneous pen (Soliqua 100/33) metformin 500 mg tablet,extended 1,000 mg PO BID 10/05/23 10/05/23 History release 24 hr metoprolol succinate 100 mg 100 mg PO BID HR 10/05/23 10/05/23 History tablet,extended release 24 hr propafenone 150 mg tablet 150 mg PO Q8H afib 10/05/23 10/05/23 History tizanidine 4 mg tablet 4 mg PO HS Muscle Spasticity 10/05/23 10/05/23 History warfarin 5 mg tablet 7.5 mg PO HS History of Blood clots 10/05/23 10/05/23 History enoxaparin 150 mg/mL subcutaneous 135 mg (0.9 mL) SQ Q12H 1 day #1.8 10/06/23 Rx syringe mL New Prescriptions to Start Prescriptions: enoxaparin Scar Andrew Allergies Allergy/AdvReac Type Severity Reaction Status Date / Time levocetirizine AdvReac Severe Chest Pain Verified 10/05/23 10:14 Penicillins AdvReac Severe Swelling Verified 10/05/23 10:14 of Lip/Tongue/Throat bupropion [From Wellbutrin] AdvReac Intermediate Verified 10/05/23 10:14 Discharge Plan Disposition Patient Disposition: Home, Self-Care Condition: Good Follow up Plan Follow up with: Javier Nguyen MD [Primary Care Provider] - 10/14/23 10:00 am Farhat Andrews MD [Staff Physician] - 10/14/23 3:00 pm Prescriptions/Medication Reconciliation: New enoxaparin 150 mg/mL Syringe 135 mg SQ Q12H 1 Days Qty: 1.8 0RF Continued fluoxetine [Prozac] 40 mg capsule 40 mg PO BID Qty: 180 3RF torsemide 20 mg tablet 20 mg PO DAILY PRN (Reason: edema) Qty: 30 2RF warfarin 5 mg tablet 7.5 mg PO HS metformin 500 mg tablet extended release 24 hr 1,000 mg PO BID Soliqua 100/33 100 unit-33 mcg/mL insulin pen 60 unit SQ DAILY metoprolol succinate 100 mg tablet extended release 24 hr 100 mg PO BID Patient Comments: TAKE 1 TABLET BY MOUTH TWICE DAILY Rx Instructions: pt states she take the whole 200mg one time a day propafenone 150 mg tablet 150 mg PO Q8H tizanidine 4 mg tablet 4 mg PO HS Problem Reconciliation Problems Reviewed?: Yes Patient Discharge Instructions ACTIVITY: Ambulate as tolerated DIET: continue same diet Patient Instructions: Transesophageal Echocardiography, DI for Cardioversion, DI for Atrial Fibrillation, Coumadin Vitamin K/ Diet Providers Primary Care Provider: Javier Nguyen Admphillip Provider: Scar Andrew Attending Provider: Scar Andrew
--- NOTE | 2023-10-07 10:38 | CARE MANAGER ---
Contacted patient related to hospital discharge. She has medications and is aware of follow up appointment. Denies any questions or concerns at this time. ELISSA Garcia
== END 2023-10-06 16:53 | disposition home or self-care (01) ==
PROVIDERS: Internal Medicine; Admitting Provider Internal Medicine; PCP Family Medicine; Visit Provider Internal Medicine
DX: R42 Dizziness and giddiness (principal); E66.01 Morbid (severe) obesity due to excess calories; Z68.42 Body mass index [BMI] 45.0-49.9, adult; Z95.828 Presence of other vascular implants and grafts; E78.2 Mixed hyperlipidemia; R55 Syncope and collapse; Z86.711 Personal history of pulmonary embolism; I48.0 Paroxysmal atrial fibrillation; Z79.899 Other long term (current) drug therapy; E11.9 Type 2 diabetes mellitus without complications; I10 Essential (primary) hypertension; E78.5 Hyperlipidemia, unspecified; Z79.01 Long term (current) use of anticoagulants; Z79.84 Long term (current) use of oral hypoglycemic drugs
CPT/HCPCS: G0379; 36415; 71045; 80048; 80053; 82962; 83880; 85025; 85610; 92960; 93005; 93270; 93312; 93319; G0378

== ENCOUNTER 2023-11-11 14:56 | Outpatient (CLI) | payer MEDICARE, SELFPAY ==
[2023-11-11 15:18] LABS: Basophils # 0.1 K/mm3 (0-0.2); Basophils % 0.5 % (0.1-2.0); Eosinophils # 0.2 K/mm3 (0.0-0.4); Hematocrit 33.7 % (37.0-47.0); Lymphocytes # 2.6 K/mm3 (0.7-4.5); Lymphocytes % 21.4 % (10-50); Mean Corpuscular HGB Conc 29.6 g/dL (31.8-35.4); Mean Corpuscular Hemoglobin 21.9 pg (27.0-31.2); Mean Corpuscular Volume 74.2 fl (81-99); Mean Platelet Volume 8.6 fl (7.4-10.4); Monocytes # 0.8 K/mm3 (0.1-1.0); Monocytes % 6.8 % (1.7-9.3); Neutrophils # 8.3 K/mm3 (1.8-7.8); Neutrophils % 69.2 % (37.0-80.0); Platelet Count 277 K/mm3 (142-424); Red Blood Count 4.55 M/mm3 (4.20-5.40); Red Cell Distribution Width 18.5 % (11.5-17.5)
[2023-11-11 15:54] LABS: Chloride 103 mmol/L (98-107); Potassium 4.6 mmoL/L (3.5-5.1); Sodium 139 mmol/L (136-145)
[2023-11-11 15:56] LABS: Blood Urea Nitrogen 17 mg/dl (7-17); Estimated Glomerular Filt Rate 104 ml/min (>60); GFR (African American) 126 ML/MIN (>60)
[2023-11-11 15:57] LABS: Anion Gap 10.6 mEq/L (5-15); Calcium 9.5 mg/dl (8.4-10.2); Carbon Dioxide 30 mmol/L (22.0-30.0); Glucose 110 mg/dl (74-100)
== END 2023-11-11 23:59 | disposition home or self-care (01) ==
PROVIDERS: PCP Family Medicine; Visit Provider Internal Medicine
DX: I48.19 Other persistent atrial fibrillation (principal)
CPT/HCPCS: 36415; 80048; 85025

== ENCOUNTER 2024-06-07 12:28 | Outpatient (CLI) | payer MEDICARE, SELFPAY ==
[2024-06-07 12:59] LABS: INR 1.23 (0.9-1.1); Prothrombin Time 13.5 seconds (10.1-12.5)
[2024-06-07 13:09] LABS: Creatinine,Urine Random 81 mg/dL (Not Estab.); Microalbumin/Creatinine Ratio 44.8
[2024-06-07 13:15] LABS: Albumin Level 4.1 g/dl (3.5-5.0); Chloride 103 mmol/L (98-107); Potassium 5.1 mmoL/L (3.5-5.1); Sodium 136 mmol/L (136-145)
[2024-06-07 13:17] LABS: Albumin Level 4.1 g/dl (3.5-5.0)
[2024-06-07 13:18] LABS: Alanine Aminotransferase 19 U/L (12-78); Albumin/Globulin Ratio 1.3 (1.1-1.8); Alkaline Phosphatase 93 U/L (38-126); Anion Gap 7.1 mEq/L (5-15); Aspartate Amino Transferase 25 U/L (14-36); Bilirubin,Total 0.4 mg/dl (0.2-1.3); Blood Urea Nitrogen 13 mg/dl (7-17); Calcium 9.4 mg/dl (8.4-10.2); Carbon Dioxide 31 mmol/L (22.0-30.0); Estimated Glomerular Filt Rate 103 ml/min (>60); GFR (African American) 125 ML/MIN (>60); Globulin 3.1 g/dL (1.3-3.2); Glucose 88 mg/dl (74-100); Total Protein,Serum 7.2 g/dl (6.3-8.2)
[2024-06-07 13:19] LABS: Alanine Aminotransferase 18 U/L (12-78); Aspartate Amino Transferase 26 U/L (14-36); Bilirubin,Unconjugated 0.1 mg/dL (0.0-1.1)
[2024-06-07 13:20] LABS: Alkaline Phosphatase 94 U/L (38-126); Bilirubin,Direct 0.3 mg/dl (0.0-0.4); Bilirubin,Indirect 0.1 mg/dL (0.0-0.9); Bilirubin,Total 0.4 mg/dl (0.2-1.3); Chol/HDL Ratio 4.8 (1-3.5); Cholesterol 192 mg/dl (140-200); HDL Cholesterol 40 mg/dl (40-60); Magnesium 1.7 mg/dl (1.6-2.3); Total Protein,Serum 7.2 g/dl (6.3-8.2); Triglycerides 171 mg/dl (30-150); VLDL Cholesterol 34 mg/dL (0-40)
[2024-06-07 13:31] LABS: Direct LDL Cholesterol 107.82 mg/dL (100-129)
[2024-06-07 13:35] LABS: Free T4 (Free Thyroxine) 1.09 ng/dl (0.78-2.19)
[2024-06-07 13:40] LABS: Hematocrit 33.5 % (37.0-47.0); Hemoglobin 9.2 g/dL (12.2-16.2); Mean Corpuscular HGB Conc 27.5 g/dL (31.8-35.4); Mean Corpuscular Hemoglobin 20.5 pg (27.0-31.2); Mean Corpuscular Volume 74.6 fl (81-99); Platelet Count 331 K/mm3 (142-424); Red Blood Count 4.49 M/mm3 (4.20-5.40); Red Cell Distribution Width 18.1 % (11.5-17.5); White Blood Count 9.8 K/mm3 (4.8-10.8)
[2024-06-07 13:41] LABS: Basophils # 0.1 K/mm3 (0-0.2); Basophils % 0.5 % (0.1-2.0); Eosinophils # 0.2 K/mm3 (0.0-0.4); Eosinophils % 1.9 % (0.1-12.0); Lymphocytes # 2.3 K/mm3 (0.7-4.5); Lymphocytes % 23.2 % (10-50); Monocytes # 0.9 K/mm3 (0.1-1.0); Monocytes % 8.6 % (1.7-9.3); Neutrophils # 6.4 K/mm3 (1.8-7.8); Neutrophils % 64.7 % (37.0-80.0)
[2024-06-07 14:00] LABS: HIV Combo NEGATIVE (Negative)
[2024-06-08 06:23] LABS: HCV Ab Non Reactive (Non Reactive)
== END 2024-06-07 23:59 | disposition home or self-care (01) ==
LOC: LAB 12:29
PROVIDERS: Internal Medicine; PCP Family Medicine; Visit Provider Family Medicine
DX: Z79.01 Long term (current) use of anticoagulants (principal); Z51.81 Encounter for therapeutic drug level monitoring; I10 Essential (primary) hypertension; I48.19 Other persistent atrial fibrillation; Z11.4 Encounter for screening for human immunodeficiency virus [HIV]; Q21.12 Patent foramen ovale; E66.01 Morbid (severe) obesity due to excess calories; Z68.42 Body mass index [BMI] 45.0-49.9, adult; E78.2 Mixed hyperlipidemia; Z95.828 Presence of other vascular implants and grafts; Z86.711 Personal history of pulmonary embolism; R94.31 Abnormal electrocardiogram [ECG] [EKG]; E11.9 Type 2 diabetes mellitus without complications
CPT/HCPCS: 36415; 80053; 80061; 80076; 82043; 82570; 83735; 84439; 84443; 85025; 85610; 86803; 87389

== ENCOUNTER 2024-07-07 09:26 | Outpatient (CLI) | payer MEDICARE, SELFPAY ==
[2024-07-07 18:33] LABS: Basophils # 0.1 K/mm3 (0-0.2); Basophils % 0.7 % (0.1-2.0); Eosinophils # 0.1 K/mm3 (0.0-0.4); Eosinophils % 2.1 % (0.1-12.0); Hematocrit 35.1 % (37.0-47.0); Hemoglobin 9.5 g/dL (12.2-16.2); Lymphocytes # 1.7 K/mm3 (0.7-4.5); Lymphocytes % 24.5 % (10-50); Mean Corpuscular HGB Conc 27.1 g/dL (31.8-35.4); Mean Corpuscular Volume 77.7 fl (81-99); Mean Platelet Volume 10.4 fl (7.4-10.4); Monocytes % 14.4 % (1.7-9.3); Neutrophils # 3.7 K/mm3 (1.8-7.8); Neutrophils % 54.8 % (37.0-80.0); Platelet Count 259 K/mm3 (142-424); Red Blood Count 4.52 M/mm3 (4.20-5.40); Red Cell Distribution Width 20.8 % (11.5-17.5); White Blood Count 6.8 K/mm3 (4.8-10.8)
[2024-07-07 18:49] LABS: INR 1.21 (0.9-1.1); Prothrombin Time 13.3 seconds (10.1-12.5)
[2024-07-07 18:54] LABS: Microalbumin/Creatinine Ratio 39.6
[2024-07-07 19:20] LABS: Chloride 99 mmol/L (98-107); Potassium 4.8 mmoL/L (3.5-5.1); Sodium 133 mmol/L (136-145)
[2024-07-07 19:22] LABS: Blood Urea Nitrogen 18 mg/dl (7-17); Estimated Glomerular Filt Rate 87 ml/min (>60); GFR (African American) 105 ML/MIN (>60); Iron 32 ug/dL (37-170)
[2024-07-07 19:23] LABS: Anion Gap 12.8 mEq/L (5-15); Calcium 9.1 mg/dl (8.4-10.2); Carbon Dioxide 26 mmol/L (22.0-30.0); Cholesterol 139 mg/dl (140-200); Glucose 152 mg/dl (74-100); HDL Cholesterol 23 mg/dl (40-60); Triglycerides 139 mg/dl (30-150); VLDL Cholesterol 28 mg/dL (0-40)
[2024-07-07 19:26] LABS: Creatinine,Urine Random 249 mg/dL (Not Estab.)
[2024-07-07 19:30] LABS: 25-OH Vitamin D, Total 17.9 ng/mL (30-100)
[2024-07-07 19:33] LABS: Total Iron Binding Capacity 442 ug/dL (265-497)
[2024-07-07 19:34] LABS: Direct LDL Cholesterol 89.85 mg/dL (100-129)
[2024-07-07 20:08] LABS: HIV Combo NEGATIVE (Negative)
[2024-07-07 20:15] LABS: Hepatitis C Ab Qual. W/ RFX NEGATIVE (Negative)
== END 2024-07-07 23:59 | disposition home or self-care (01) ==
LOC: LAB.DROPOF 07-10 09:29
PROVIDERS: PCP Family Medicine; Visit Provider Family Medicine
DX: I10 Essential (primary) hypertension (principal); E11.9 Type 2 diabetes mellitus without complications; Z11.59 Encounter for screening for other viral diseases; E55.9 Vitamin D deficiency, unspecified; Z11.4 Encounter for screening for human immunodeficiency virus [HIV]; I48.0 Paroxysmal atrial fibrillation; Z51.81 Encounter for therapeutic drug level monitoring; Z79.01 Long term (current) use of anticoagulants; Z86.711 Personal history of pulmonary embolism
CPT/HCPCS: 80048; 80061; 82043; 82306; 82570; 83540; 83550; 85025; 85610; 86803; 87389

== ENCOUNTER 2024-09-04 09:54 | Outpatient (CLI) | payer MEDICARE, SELFPAY ==
[2024-09-04 19:08] LABS: INR 1.18 (0.9-1.1)
[2024-09-04 20:28] LABS: Chloride 101 mmol/L (98-107)
[2024-09-04 20:29] LABS: Albumin Level 4.3 g/dl (3.5-5.0); Potassium 4.5 mmoL/L (3.5-5.1); Sodium 137 mmol/L (136-145)
[2024-09-04 20:31] LABS: Blood Urea Nitrogen 12 mg/dl (7-17); Estimated Glomerular Filt Rate 103 ml/min (>60); GFR (African American) 125 ML/MIN (>60)
[2024-09-04 20:32] LABS: Alanine Aminotransferase 21 U/L (12-78); Albumin/Globulin Ratio 1.4 (1.1-1.8); Alkaline Phosphatase 91 U/L (38-126); Anion Gap 10.5 mEq/L (5-15); Aspartate Amino Transferase 23 U/L (14-36); Bilirubin,Total 0.2 mg/dl (0.2-1.3); Calcium 9.4 mg/dl (8.4-10.2); Carbon Dioxide 30 mmol/L (22.0-30.0); Glucose 112 mg/dl (74-100); Total Protein,Serum 7.3 g/dl (6.3-8.2)
[2024-09-04 20:41] LABS: Microalbumin/Creatinine Ratio 15.6
[2024-09-04 21:32] LABS: Creatinine,Urine Random 65 mg/dL (Not Estab.)
== END 2024-09-04 23:59 | disposition home or self-care (01) ==
LOC: LAB.DROPOF 09-06 07:36
PROVIDERS: PCP Family Medicine; Visit Provider Family Medicine
DX: I10 Essential (primary) hypertension (principal); I48.0 Paroxysmal atrial fibrillation; E78.2 Mixed hyperlipidemia; Z51.81 Encounter for therapeutic drug level monitoring; Z79.01 Long term (current) use of anticoagulants
CPT/HCPCS: 80053; 82043; 82570; 85610

== ENCOUNTER 2024-10-19 10:15 | Outpatient (CLI) | payer MEDICARE, SELFPAY ==
[2024-10-19 18:26] LABS: INR 1.47 (0.9-1.1); Prothrombin Time 15.8 seconds (10.1-12.5)
[2024-10-19 18:45] LABS: Creatinine,Urine Random 67 mg/dL (Not Estab.); Microalbumin/Creatinine Ratio 22.5
[2024-10-19 19:04] LABS: Alanine Aminotransferase 23 U/L (12-78); Alkaline Phosphatase 86 U/L (38-126); Aspartate Amino Transferase 29 U/L (14-36); Bilirubin,Total 0.3 mg/dl (0.2-1.3); Calcium 9.5 mg/dl (8.4-10.2); Chloride 104 mmol/L (98-107); Glucose 107 mg/dl (74-100); Potassium 4.5 mmoL/L (3.5-5.1); Sodium 138 mmol/L (136-145)
[2024-10-19 19:08] LABS: Albumin Level 4.3 g/dl (3.5-5.0); Albumin/Globulin Ratio 1.6 (1.1-1.8); Anion Gap 10.5 mEq/L (5-15); Blood Urea Nitrogen 15 mg/dl (7-17); Carbon Dioxide 28 mmol/L (22.0-30.0); Estimated Glomerular Filt Rate 103 ml/min (>60); GFR (African American) 125 ML/MIN (>60); Globulin 2.7 g/dL (1.3-3.2)
[2024-10-19 19:17] LABS: 25-OH Vitamin D, Total 17.6 ng/mL (30-100)
[2024-10-19 19:36] LABS: Thyroid Stimulating Hormone 2.31 uIU/mL (0.465-4.68)
[2024-10-19 19:56] LABS: Vitamin B12 820 pg/mL (239-931)
--- OUTSIDE RECORDS SUMMARY | 2024-10-20 12:35 | XMS_ITS | Data Portability ---
Author Organization [facility] Address [address] [place] [address] Care Team Providers Care Solutions Architect Name Role Phone ROHAN WOODALL Primary Care Provider ROHAN WOODALL Referring Provider [phone] GREGORIO ALTAMIRANO Denial Resolution Specialist [phone] Assessment No assessment recorded. Plan of Treatment Reminders Order Date Submit Date Provider Last Modified By Organization Details Last Modified Time Details Appointments None recorded. Lab None recorded. Referral None recorded. Procedures None recorded. Surgeries None recorded. Imaging XR, shoulder 2022 023 [email or web address] 0 [facility], [address] [place] [address] [place], [address], 3 13:40:35 XR, shoulder 2022 023 [email or web address] [facility], [address] [place] [address] [place], [address], 3 09:58:25 XR, shoulder 2022 023 [email or web address] [facility], [address] [place] [address] [place], [address], 3 16:22:02 Medication Orders None recorded. Patient TargetsNo targets recorded. Patient InstructionsNo instructions recorded. Reason for Referral None Reported. Results Created Date Observation Date Name Description Value Unit Range Abnormal Flag Note LastModifiedBy Organization Detail LastModifiedTime 10/14/19 XR, shoul servando No observ ation record ed. TOMMY Dhaliwal[address] [place], [address], 10/13/2022 09:38:52 11/11/19 XR, shoul servando No observ ation record ed. TOMMY Morgan[address] [place], [address], 11/10/2022 09:35:10 12/18/19 XR, shoul servando No observ ation record ed. TOMMY Morgan[address] [place], [address], 12/17/2022 13:22:30 Result Notes None recorded. Procedures Surgical History Date Name Laterality Status Provider Name and Address Organization Details Recorded Time 0 completed Sena JALLOH - [facility] & [place] 10/13/2022 09:20:31 4 Net Architect Surgery completed Sena JALLOH - [facility] & [place] 10/13/2022 09:20:50 4 Other completed Sena Stark [place] - [facility] - [place] & [place] 10/13/2022 09:20:50 Imaging Results Imaging Date Name Status LastModified by Organiz ation Details LastModified Time 10/13/2022 XR, shoulder completed TOMMY farley [address] [place], [address], 10/13/2022 09:38:52 11/10/2022 XR, shoulder completed TOMMY farley [address] [place], [address], 11/10/2022 09:35:10 12/17/2022 XR, shoulder completed TOMMY farley [facility] [address] [facility] , [place], [address], 12/17/2022 13:22:30 Procedure Notes None recorded. Medical Equipment None Reported. Allergies Allergen ID Allergen Name Allergen Category Reaction Reaction Severity Criticality Documentation Date Start Date Code Code System Note Provider Name and Address Organization Details Recorded Time 07478 Product containin g penicilli n (product) medicatio n Not available Not available Not available 10/13/2022 57455 8001 SNOMED Sena Stark null, [place] - [facility] - [place] & [place] 3 09:24:21 Medications Name Sig Start Date Stop Date Status Note LastModified by Organization Details LastModified Time fluoxetine 40 mg capsule TAKE 1 CAPSULE BY MOUTH ONCE DAILY 11/10 completed Not Available Not Available Not Available clindamycin HCl 300 mg capsule TAKE 1 CAPSULE BY MOUTH THREE TIMES DAILY FOR 10 DAYS 10/13 completed Not Available Not Available Not Available tizanidine 4 mg tablet TAKE 1 TABLET BY MOUTH TWICE DAILY NEEDED FOR MUSCLE SPASTICIT Y active Not Available Not Available No t Available hydrocodone 5 mg-acetamin ophen 325 mg tablet TAKE 1 TABLET BY MOUTH EVERY 6 HOURS 11/10 completed Not Available Not Available Not Available metoprolol succinate ER 100 mg tablet,exte nded release 24 hr TAKE 1 TABLET BY MOUTH ONCE DAILY active Not Available Not Available No t Available venlafaxine ER 150 mg capsule,ext ended release 24 hr TAKE 1 CAPSULE BY MOUTH ONCE DAILY active Not Available Not Available No t Available phentermine 37.5 mg tablet TAKE 1 TABLET BY MOUTH ONCE DAILY 30 MINUTES BEFORE BREAKFAST OR 1-2 HOURS AFTER BREAKFAST 10/13 completed Not Available Not Available Not Available trazodone 150 mg tablet TAKE 1 TABLET BY MOUTH ONCE DAILY AT BEDTIME active Not Available Not Available No t Available warfarin 5 mg tablet TAKE 1 & 1/2 (ONE & ONE-HALF) TABLETS BY MOUTH ONCE DAILY active Not Available Not Available No t Available oxycodone-a cetaminophe n 7.5 mg-325 mg tablet TAKE 1 TABLET BY MOUTH EVERY 6 HOURS NEEDED BREAKTHRO UGH PAIN 11/10 completed Not Available Not Available Not Available methylpredn isolone 4 mg tablets in a dose pack TAKE BY MOUTH DIRECTED ON INSIDE OF PACKAGE 10/13 completed Not Available Not Available Not Available lisinopril 40 mg tablet TAKE 1 TABLET BY MOUTH ONCE DAILY 11/10 completed Not Available Not Available Not Available metformin ER 500 mg tablet,exte nded release 24 hr TAKE 1 TABLET BY MOUTH 4 TIMES DAILY active Not Available Not Available No t Available phentermine 37.5 mg capsule TAKE 1 CAPSULE BY MOUTH ONCE DAILY 30 MINUTES BEFORE BREAKFAST OR 1-2 HOURS AFTER BREAKFAST active Not Available Not Available No t Available tizanidine 10/13 completed Not Available Not Available Not Available warfarin 10/13 completed Not Available Not Available Not Available Prozac active Not Available Not Availa ble Not Available trazodone 10/13 completed Not Available Not Available Not Available metoprolol succinate 10/13 completed Not Available Not Available Not Available metformin 10/13 completed Not Available Not Available Not Available amlodipine 10 mg-benazepr il 40 mg capsule TAKE 1 CAPSULE BY MOUTH ONCE DAILY active Not Available Not Available No t Available OneTouch Verio test strips USE 1 STRIP TO CHECK GLUCOSE TWICE DAILY active Not Available Not Available No t Available Soliqua 100/33 100 unit-33 mcg/mL subcutaneou s insulin pen INJECT 50 UNITS SUBCUTANE OUSLY ONCE DAILY FOR DIABETES active Not Available Not Available No t Available Soliqua 100/33 10/13 completed Not Available Not Available Not Available Vitals Date Recorded Body height Body mass index (BMI) Body weight Body temperature Heart rate Respiratory rate Systolic blood pressure Diastolic blood pressure Provider Name and Address Organization Details Last Updated DateTime 3 175.26 cm 46.1 kg/m2 036076. 82 g 98 [degF] 93 /min 18 /min 124 mm[Hg] 79 mm[Hg] Sena Stark [place] - [facility] & [place] 3 09:23:47 Date Recorded Body height Body temperature Heart rate Respiratory rate Systolic blood pressure Diastolic blood pressure Provider Name and Address Organization Details Last Updated DateTime 3 175.26 cm 97.8 [degF] 98 /min 18 /min 138 mm[Hg] 88 mm[Hg] Leah JALLOH - [facility] & [place] 3 09:27:10 Date Recorded Body height Body temperature Heart rate Respiratory rate Systolic blood pressure Diastolic blood pressure Provider Name and Address Organization Details Last Updated DateTime 3 175.26 cm 97.9 [degF] 70 /min 18 /min 158 mm[Hg] 75 mm[Hg] Jacque Sales [facility] & [place] 3 13:09:18 Social History Question Answer Notes LastModified by Organizat ion Details LastModified Time Tobacco Smoking Status Former Smoker Sena rao, [facility] & [place] 10/13/2022 09:20:46 What Is Your Level Of Alcohol Consumption? None Information not available 10/13/2022 What Was The Date Of Your Most Recent Tobacco Screening? 10/13/2022 [email or web address] Information not available 10/13/2022 Are You Passively Exposed To Smoke? No [email or web address] Information not available 10/13/2022 Do You Or Have You Ever Used Smokeless Tobacco? [id number] [email or web address] Information not available 10/13/2022 How Much Tobacco Do You Smoke? No [email or web address] Information not available 10/13/2022 Sex: Female Functional Status None recorded. Mental Status None recorded. Family History Relationship Description Onset Age of this Age Resolved Age Notes LastModified by Organization Details LastModified Time Father Disorder of endocrine system pt. added direct ly (10/13) [email or web address] Not available 10/13/2022 09:03:53 Father Heart disease pt. added direct ly (10/13) [email or web address] Not available 10/13/2022 09:04:59 Father Hypertensive disorder pt. added direct ly (10/13) [email or web address] Not available 10/13/2022 09:04:59 Mother Heart disease pt. added direct ly (10/13) [email or web address] Not available 10/13/2022 09:06:02 Mother Mental health problem pt. added direct ly (10/13) [email or web address] Not available 10/13/2022 09:06:02 Mother Seizure disorder pt. added direct ly (10/13) [email or web address] Not available 10/13/2022 09:06:02 Medical History Condition Response Clotting Disorder Y Diabetes Y Obesity Y Arthritis Y Back Problems Y Hypertension Y Gynecological History Statement/Question Response 06/30/2019 Sexually Active? N Obstetrics History GPAL:G 0 P 0 0 0 0 Immunizations Vaccine Type Date Status Note Provider Nam e and Address Organization Details Recorded Time Influenza, split virus, quadrivalent, preservative 8 completed Sena [place] null, [place] - [facility] - [place] & [place] 11/09/2022 08:25:19 COVID-19, mRNA, LNP-S, PF, 100 mcg/0.5mL dose or 50 mcg/0.25mL dose 1 completed Sen[place] null, [place] - [facility] & [place] 11/09/2022 08:25:19 COVID-19, mRNA, LNP-S, PF, 100 mcg/0.5mL dose or 50 mcg/0.25mL dose 1 completed Sena [place] null, [place] - [facility] - [place] & [place] 11/09/2022 08:25:19 Tdap 3 completed Sen[place] - [facility] - [place] & [place] 11/09/2022 08:25:19 Influenza, split virus, trivalent, PF 2 completed Sen[place] - [facility] - [place] & [place] 11/09/2022 08:25:19 Influenza, split virus, quadrivalent, PF 6 completed Sen[place] - [facility] - [place] & [place] 11/09/2022 08:25:19 Influenza, split virus, quadrivalent, PF 0 completed Sen[place] [facility] [place] & [place] 11/09/2022 08:25:19 Influenza, split virus, quadrivalent, PF 2 completed Sen[place] [facility] [place] & [place] 11/09/2022 08:25:19 Influenza, split virus, quadrivalent, PF 1 completed Sen[place] [facility] - [place] & [place] 11/09/2022 08:25:19 Past Encounters Encounter ID Performer Location Encounter Start Date Encounter Closed Date Diagnosis/Indication Diagnosis SNOMED-CT Code Diagnosis ICD10 Code Diagnosis Note [id number] Jhonny Copeland MD [facility] [address] [address] 10/13/2022 08:37:06 10/13/2022 09:59:20 Closed fracture of proximal right humerus [id number] [id number] S42.201A [id number] SHYANN PULIDO [facility] [address] [address] 11/10/2022 09:20:06 11/10/2022 09:47:24 Closed fracture of proximal right humerus [id number] S42.201D [id number] SOFY MONCADA NP [facility] [address] [address] 12/17/2022 13:01:31 12/17/2022 13:40:35 Closed fracture of proximal right humerus [id number] S42.201D Health Concerns Section Related Observation LastModified by Organization Detai ls LastModified Time None Recorded Concern Status LastModified by Organization Details LastModified Time None Recorded Advance Directives Directive None Recorded Payers Encounter Date Sequence Insurance Name Policy Number Policy Freeman Covered Member ID Freeman Member ID Guarantor Name 10/13/2022 1 [place] [id number] Carol Ann Sonia [id number] Carol Ann Sonia 11/10/2022 1 [place] [id number] Carol Ann Sonia [id number] Carol Ann Sonia 12/17/2022 1 [place] [id number] Carol Ann Sonia [id number] Carol Ann Sonia Notes Date Note Type Note Provider Name and Address Organization Details Recorded Time 10/13/2022 text/html This is a 52 year old right handed diabetic female here today for right humerus fracture. States that on 10.08.22 while in [place] she fell on her right shoulder. Went to an ER there xrays taken and sling was given. Patient is taking percocet for pain. Does have some tingling in right hand but states she had that before the injury. E5 JS Jhonny Copeland MD [address] [place] [address],[address], [place], [address], [facility] & [place] 10/14/2022 07:55:19 11/10/2022 text/html Pt is here for f/u of her rt humerus fx. She reports her pain is some better from her last visit. She still has issues with her ROM. Taking Tylenol for pain-E2SF SOFY MONCADA NP [address] [place] [address],[address], [place], [address], [facility] & [place] 11/10/2022 09:48:59 12/17/2022 text/html Patient is here for x-ray follow up of right shoulder - impacted proximal humerus fracture. She sustained the injury 10 weeks ago. (4.20.23) She states she has some pain with certain activities, otherwise she feels . She went to 3-4 PT visits. SOFY MONCADA NP [address] [place] [address],[address], [place], [address], [facility] & [place] 12/17/2022 13:40:24 OBGyn Episode No OBEpisode recorded.
== END 2024-10-19 23:59 | disposition home or self-care (01) ==
LOC: LAB.DROPOF 10-20 12:34
PROVIDERS: PCP Family Medicine; Visit Provider Family Medicine
DX: D71 Functional disorders of polymorphonuclear neutrophils (principal); I48.91 Unspecified atrial fibrillation; E11.9 Type 2 diabetes mellitus without complications; Z95.828 Presence of other vascular implants and grafts
CPT/HCPCS: 80053; 82043; 82306; 82570; 82607; 84436; 84443; 85610

== ENCOUNTER 2024-11-22 11:14 | Outpatient (CLI) | payer MEDICARE, SELFPAY ==
[2024-11-22 18:47] LABS: Basophils % 0.5 % (0.1-2.0); Eosinophils # 0.2 Kmm3 (0.0-0.4); Eosinophils % 2.5 % (0.1-12.0); Hematocrit 41.5 % (37.0-47.0); Hemoglobin 11.8 g/dL (12.2-16.2); Immature Granulocytes # 0.12 10^3uL; Immature Granulocytes % 1.6 %; Mean Corpuscular HGB Conc 28.4 g/dL (31.8-35.4); Mean Corpuscular Hemoglobin 24.7 pg (27.0-31.2); Mean Platelet Volume 10.4 fl (7.4-10.4); Monocytes # 0.7 K/mm3 (0.1-1.0); Monocytes % 9.6 % (1.7-9.3); Neutrophils # 4.5 K/mm3 (1.8-7.8); Neutrophils % 59.8 % (37.0-80.0); Nucleated Red Blood Cells # 0 10^3/uL; Nucleated Red Blood Cells % 0 %; Platelet Count 224 K/mm3 (142-424); Red Blood Count 4.77 M/mm3 (4.20-5.40); Red Cell Distribution Width 19.9 % (11.5-17.5); Red Cell Distribution Width-SD 63.5 fL; White Blood Count 7.5 K/mm3 (4.8-10.8)
[2024-11-22 19:05] LABS: INR 1.95 (0.9-1.1); Prothrombin Time 20.6 seconds (10.1-12.5)
[2024-11-22 19:21] LABS: Hemoglobin A1C 6.5 % (4.0-6.0)
[2024-11-22 19:54] LABS: Alanine Aminotransferase 18 U/L (12-78); Albumin/Globulin Ratio 1.4 (1.1-1.8); Alkaline Phosphatase 81 U/L (38-126); Anion Gap 11.5 mEq/L (5-15); Aspartate Amino Transferase 20 U/L (14-36); Bilirubin,Total 0.3 mg/dl (0.2-1.3); Blood Urea Nitrogen 13 mg/dl (7-17); Carbon Dioxide 31 mmol/L (22.0-30.0); Chloride 105 mmol/L (98-107); Chol/HDL Ratio 4.7 (1-3.5); Cholesterol 182 mg/dl (140-200); Estimated Glomerular Filt Rate 103 ml/min (>60); GFR (African American) 125 ML/MIN (>60); Globulin 2.9 g/dL (1.3-3.2); Glucose 102 mg/dl (74-100); HDL Cholesterol 39 mg/dl (40-60); Potassium 4.5 mmoL/L (3.5-5.1); Sodium 143 mmol/L (136-145); Total Protein,Serum 6.9 g/dl (6.3-8.2); Triglycerides 160 mg/dl (30-150); VLDL Cholesterol 32 mg/dL (0-40)
[2024-11-22 21:00] LABS: Iron 76 ug/dL (37-170)
[2024-11-22 21:10] LABS: Total Iron Binding Capacity 394 ug/dL (265-497)
[2024-11-22 21:35] LABS: Thyroid Stimulating Hormone 2.21 uIU/mL (0.465-4.68)
[2024-11-22 21:39] LABS: Ferritin 9.78 ng/ml (11.1-264)
--- OUTSIDE RECORDS SUMMARY | 2024-11-23 13:15 | XMS_ITS | Data Portability ---
Author Organization [facility] Address [address] [place] [address] Care Team Providers Care Casing Splitter Name Role Phone ROHAN WOODALL Primary Care Provider ROHAN WOODALL Referring Provider GREGORIO ALTAMIRANO Wheel Press Clerk Assessment No assessment recorded. Plan of Treatment Reminders Order Date Submit Date Provider Last Modified By Organization Details Last Modified Time Details Appointments None recorded. Lab None recorded. Referral None recorded. Procedures None recorded. Surgeries None recorded. Imaging XR, shoulder 2022 023 [email or web address] [id number] [facility], [address] [place] [address] [place], [address], 3 13:40:35 XR, shoulder 2022 023 [email or web address] [facility], [address] [place] [address] [place], [address], 3 09:58:25 XR, shoulder 2022 023 [email or web address] [facility], [address] [place] [address] [place], [address], 3 16:22:02 Medication Orders None recorded. Patient TargetsNo targets recorded. Patient InstructionsNo instructions recorded. Reason for Referral None Reported. Results Created Date Observation Date Name Description Value Unit Range Abnormal Flag Note LastModifiedBy Organization Detail LastModifiedTime 10/14/19 XR, shoul servando No observ ation record ed. TOMMY Reynoso [address] [place], [address], 10/13/2022 09:38:52 11/11/19 XR, shoul servando No observ ation record ed. TOMMY Reynoso [address] [place], [address], 11/10/2022 09:35:10 12/18/19 XR, shoul servando No observ ation record ed. TOMMY Reynoso [address] [place], [address], 12/17/2022 13:22:30 Result Notes None recorded. Procedures Surgical History Date Name Laterality Status Provider Name and Address Organization Details Recorded Time 0 completed Sena Jolleys [place] - [facility] & [place] 10/13/2022 09:20:31 4 Technical Editor Surgery completed Sena Jolleys [place] - [facility] & [place] 10/13/2022 09:20:50 4 Other completed Sena Jolleys [place] - [facility] - [place] & [place] 10/13/2022 09:20:50 Imaging Results None recorded. Procedure Notes None recorded. Medical Equipment None Reported. Allergies Allergen ID Allergen Name Allergen Category Reaction Reaction Severity Criticality Documentation Date Start Date Code Code System Note Provider Name and Address Organization Details Recorded Time 99364 Product containin g penicilli n (product) medicatio n Not available Not available Not available 10/13/2022 04363 8001 SNOMED Sena Stark maira, [place] - [facility] - [place] & [place] 09:24:21 Medications Name Sig Start Date Stop [...] Updated DateTime 3 175.26 cm 46.1 kg/m2 763016. 82 g 98 [degF] 93 /min 18 /min 124 mm[Hg] 79 mm[Hg] Sena Stark [facility] & [place] 3 09:23:47 Date Recorded Body height Body temperature Heart rate Respiratory rate Systolic blood pressure Diastolic blood pressure Provider Name and Address Organization Details Last Updated DateTime 3 175.26 cm 97.8 [degF] 98 /min 18 /min 138 mm[Hg] 88 mm[Hg] Leah Zeinab [facility] & [place] 3 09:27:10 Date Recorded Body height Body temperature Heart rate Respiratory rate Systolic blood pressure Diastolic blood pressure Provider Name and Address Organization Details Last Updated DateTime 3 175.26 cm 97.9 [degF] 70 /min 18 /min 158 mm[Hg] 75 mm[Hg] Jacque Sales [facility] & [place] 3 13:09:18 Social History Question Answer Notes LastModified by Organizat ion Details LastModified Time Tobacco Smoking Status Former Smoker Sena Stark [facility], [facility] & [place] 10/13/2022 09:20:46 What Was The Date Of Your Most Recent Tobacco Screening? 10/13/2022 [email or web address] Information not available 10/13/2022 Are You Passively Exposed To Smoke? No Information not available 10/13/2022 How Much Tobacco Do You Smoke? No [email or web address] Information not available 10/13/2022 Sex: Female Functional Status Question Answer Note LastModified by Organizat ion Details LastModified Time What is your level of alcohol consumption? None [email or web address] Information not available 10/13/2022 Do you or have you ever used smokeless tobacco? [id number] [email or web address] Information not available 10/13/2022 Mental Status None recorded. Family History Relationship [...] available 10/13/2022 09:06:02 Medical History Condition Response Diabetes Y Clotting Disorder Y Obesity Y Back Problems Y Arthritis Y Hypertension Y Gynecological History Statement/Question Response 06/30/2019 Sexually Active? N Obstetrics History GPAL:G 0 P 0 0 0 0 Immunizations Vaccine Type Date Status Note Provider Nam e and Address Organization Details Recorded Time Influenza, split virus, quadrivalent, preservative 8 completed SHUBHAM Taylor - [facility] & [place] 11/09/2022 08:25:19 COVID-19, mRNA, LNP-S, PF, 100 mcg/0.5mL dose or 50 mcg/0.25mL dose 1 completed Sena rao, SHUBHAM - [facility] - [place] & [place] 11/09/2022 08:25:19 COVID-19, mRNA, LNP-S, PF, 100 mcg/0.5mL dose or 50 mcg/0.25mL dose 1 completed Sena [place] null, [place] - [facility] - [place] & [place] 11/09/2022 08:25:19 Tdap 3 completed Sen[place] [facility] [place] & [place] 11/09/2022 08:25:19 Influenza, split virus, trivalent, PF 2 completed Sen[place] [facility] - [place] & [place] 11/09/2022 08:25:19 Influenza, split virus, quadrivalent, PF 6 completed Sen[place] [facility] - [place] & [place] 11/09/2022 08:25:19 Influenza, split virus, quadrivalent, PF 0 completed Sen[place] [facility] - [place] & [place] 11/09/2022 08:25:19 Influenza, split virus, quadrivalent, PF 2 completed Sen[place] [facility] - [place] & [place] 11/09/2022 08:25:19 Influenza, split virus, quadrivalent, PF 1 completed Sen[place] [facility] - [place] & [place] 11/09/2022 08:25:19 Past Encounters Encounter ID Performer Location Encounter Start Date Encounter Closed Date Diagnosis/Indication Diagnosis SNOMED-CT Code Diagnosis ICD10 Code Diagnosis Note [id number] MD SONIYA Walker [address] [address] 10/13/2022 08:37:06 10/13/2022 09:59:20 Closed fracture of proximal right humerus [id number] S42.201A [id number] SHYANN PULIDO [address] [address] 11/10/2022 09:20:06 11/10/2022 09:47:24 Closed fracture of proximal right humerus [id number] S42.201D [id number] SHYANN PULIDO [address] [place] [address] 12/17/2022 13:01:31 12/17/2022 13:40:35 Closed fracture of proximal right humerus [id number] S42.201D Health Concerns Section Related Observation LastModified by Organization Detai ls LastModified Time None Recorded Concern Status LastModified by Organization Details LastModified Time None Recorded Advance Directives Directive None Recorded Payers Insurance Date Sequence Insurance Name Policy Number Policy Freeman Covered Member ID Freeman Member ID Guarantor Name 02/14/2023 1 [place] H[place] [id number] Carol Ann Scott [id number] Carol Ann Scott Notes Date Note Type Note Provider Name and Address Organization Details Recorded Time 10/13/2022 text/html This is a 52 year old right handed diabetic female here today for right humerus fracture. States that on 10.08.22 while in [place] she fell on her right shoulder. Went to an ER there xrays taken and sling was given. Patient is taking percocet for pain. Does have some tingling in right hand but states she had that before the injury. E5 JS Jhonny Copeland MD [address] [place] [address],[address], [place], [address], [place] - [facility] & [place] 10/14/2022 07:55:19 11/10/2022 text/html Pt is here for f/u of her rt humerus fx. She reports her pain is some better from her last visit. She still has issues with her ROM. Taking Tylenol for pain-E2SF SOFY MONCADA NP [address] [place] [address],[address], [place], [address], [place] - [facility] & [place] 11/10/2022 09:48:59 12/17/2022 text/html Patient is here for x-ray follow up of right shoulder - impacted proximal humerus fracture. She sustained the injury 10 weeks ago. (10.08.22) She states she has some pain with certain activities, otherwise she feels . She went to 3-4 PT visits. SOFY MONCADA NP [address] [place] [address],[address], [place], [address], [facility] - [facility] - [place] & [place] 12/17/2022 13:40:24 OBGyn Episode No OBEpisode recorded.
== END 2024-11-22 23:59 | disposition home or self-care (01) ==
LOC: LAB.DROPOF 11-23 13:13
PROVIDERS: PCP Family Medicine; Visit Provider Family Medicine
DX: E11.9 Type 2 diabetes mellitus without complications (principal); I10 Essential (primary) hypertension; M53.3 Sacrococcygeal disorders, not elsewhere classified; I48.91 Unspecified atrial fibrillation
CPT/HCPCS: 80053; 80061; 82728; 83036; 83540; 83550; 84443; 85025; 85610

== ENCOUNTER 2024-12-20 12:10 | Outpatient (CLI) | payer MEDICARE, SELFPAY ==
[2024-12-20 21:37] LABS: INR 1.60 (0.9-1.1); Prothrombin Time 17.2 seconds (10.1-12.5)
--- OUTSIDE RECORDS SUMMARY | 2024-12-25 11:06 | XMS_ITS | Clinical Summary ---
Author Organization [facility] Address [address] [place] [address] Care Team Providers Care Chrome Plater Helper Name Role Phone Unavailable Primary Care Provider Unavailabl e Source Comments [facility] is fully rolled out with thefollowing exceptions:General Clinical Research [facility] Social History Tobacco Use Types Packs/Day Years Used Date Smoking Tobacco: Never Assessed Comments Unknown Sex and Gender Information Value Date Recorded Sex Assigned at Not on file Legal Sex Female 7:06 PM EDT Gender Identity Not on file Sexual Orientation Not on file Plan of Treatment Health Maintenance Due Date Last Done Comments MMR IMMUNIZATION (1 of 1 - S tandard series) 1969 DTAP/Tdap/Td IMMUNIZATION (1 - Tdap) 1975 VARICELLA IMMUNIZATION (1 of 2 - 13+ 2-dose series) 1981 HEPATITIS B IMMUNIZATION (1 of 3 - 19+ 3-dose series) 1987 COVID-19 Vaccine ( - 2023-2 5 season) 2024 AMB SEASONAL FLU VACCINE (#1) 02/19/2025 HIB IMMUNIZATION Aged Out No longer e ligible based on patient's age to complete this topic HPV IMMUNIZATION Aged Out No longer e ligible based on patient's age to complete this topic IPV IMMUNIZATION Aged Out No longer e ligible based on patient's age to complete this topic MCV4 IMMUNIZATION Aged Out No longer eligible based on patient's age to complete this topic MENINGOCOCCAL B VACCINE Aged Out No l onger eligible based on patient's age to complete this topic Respiratory Syncytial Virus (RSV) <20mo Aged Out No longer eligible b ased on patient's age to complete this topic Insurance MEDICARE [place] * Guarantor: Carol Ann Scott Account Type Relation to Patient Date of Phone Billing Address [facility] Reference Lab Self 1970 [address] [address] [place]
--- OUTSIDE RECORDS SUMMARY | 2024-12-25 11:06 | XMS_ITS | Data Portability ---
Author Organization Formerly [facility] Address [address] [place] [address] Care Team Providers Care Medical Dir Name Role Phone JAVIER NGUYEN Primary Care Provider Assessment Encounter Date Assessment Date Assessment LastModified by Organization Details LastModified Time 10/04/2017 10/04/2017 Stones x 2 Right UPJ 8 mm 9 mm Lithotripsy 10/13/17 Last clot 2003 + Filter propensity for p/e Exam without change Will bridge Lovenox ngallenstein Not available 10/04/2017 15:48:24 11/01/2017 11/01/2017 BMI 49.6 History of DVT pE Therapeutic INR INR 2.4 no problems Chronic pain Depression anhedonia poor sleep de motivated Nephrolithiasis stented Increase pain Increase Effexor XR to 150 ngallenstein Not available 11/01/2017 14:49:51 12/17/2017 12/17/2017 Exam w/o change Chronic back pain Refill Hydrocodone 7.5 mg-acetaminophe n 325 mg take 0.5 mg tablet TID prn #45 Anival reviewed and appropriate DM2 HbA1c 8.2 BMI 49.7 Hypertension Increase Lisinopril to 1 tablet BID Depression and anxiety ngallenstein Not available 01/14/2018 17:37:47 01/14/2018 01/14/2018 Subtherap INR INR 1.9 Warfarin 10 mg x 4 days Warfarin 7.5 mg x 3 days New dose hx DVT PE lastly 2004 s/p Filter exam w/o change Weight gain 12 lbs ngallenstein Not available 01/14/2018 10:35:51 02/04/2018 02/04/2018 Chronic pain Back Knees weight bearing joints AFO bilateral DM2 marginal BMI 48.7 Prob room for dietary improvements Elevated Bp s/p hyst Rx Lisinopril 40 mg HCTZ 50 Caney 7.5 mg 1/2 tablet TID #[facility] 02/25/2018 11:31:41 Plan of Treatment Reminders Order Date Submit Date Provider Last Modified By Organization Details Last Modified Time Details Appointments None recorde d. Lab INR, capilla ry blood 2017 018 [facility], [address] [place], [address], 8 14:03:28 HbA1c (hemogl obin A1c), blood 2017 018 [facility], [address] [place], [address], 8 14:03:28 INR, capilla ry blood 2017 018 [facility], [address] [place], [address], 8 16:39:37 urinaly rosangela mackenzie k 2017 018 [facility], [address] [place], [address], 8 14:27:34 INR, capilla ry blood 2017 018 [facility], [address] [place], [address], 8 14:27:34 HbA1c (hemogl obin A1c), blood 2017 018 [facility], [address] [place], [address], 8 14:27:34 INR, capilla ry blood 2017 018 [facility], [address] [place], [address], 8 10:44:56 INR, capilla ry blood 2017 018 [facility], [address] [place], [address], 8 10:44:56 INR, capilla ry blood 2017 018 [facility], [address] [place], [address], 8 10:36:20 Referral None recorde d. Procedures None recorde d. Surgeries None recorde d. Imaging None recorde d. Medication Orders hydroco done 7.5 mg-acet aminoph en 325 mg tablet 2017 018 [facility] [address] [place], [address], 8 11:32:24 lisinop ril 40 mg tablet 2017 018 [facility] [address] [place], [address], 8 14:23:34 hydroch lorothi azide 50 mg tablet 2017 018 [facility] [address] [place], [address], 8 14:23:34 warfari n 5 mg tablet 2017 018 [email or web address] [facility] [address] [place], [address], 8 13:55:45 hydroco done 7.5 mg-acet aminoph en 325 mg tablet [address] [place], [address], 8 11:50:15 trazodo ne 150 mg tablet 2017 018 [facility] [address], [address] [place] [address], [address], 8 14:27:34 lisinop ril 40 mg tablet 2017 018 [facility] [address], [address] [place] [address], [address], 8 14:27:34 Effexor XR 150 mg capsule ,extend ed release 2017 018 [place] [address], [address] [place] [address], [address], 8 19:38:05 tamsulo sin 0.4 mg capsule 2017 018 [place] [address], [address] [place] [address], [address], 8 10:36:20 Lovenox 100 mg/mL subcuta neous syringe [address], [address] [place] [address], [address], 8 11:32:59 Patient TargetsNo targets recorded. Patient Instructions Encounter Date Encounter Id Patient Instructions Last Modified By Organization Details Last Modified Time 10/04/2017 [id number] kidney stone: care instructions sneus Not available 10/04/2017 10:36:20 high blood pressure: care instructions sneus Not available 10/04/2017 10:36:20 learning about high blood pressure sneus Not available 10/04/2017 10:36:20 12/17/2017 [id number] When You Want to Lose Weight: Care Instructions sneus Not available 01/14/2018 16:39:37 type 2 diabetes: care instructions sneus Not available 12/17/2017 14:27:34 high blood pressure: care instructions sneus Not available 12/17/2017 14:27:34 learning about high blood pressure sneus Not available 12/17/2017 14:27:34 learning about mood disorders sneus Not available 01/14/2018 16:39:37 02/04/2018 [id number] arthritis: care instructions sneus Not available 02/04/2018 14:03:28 osteoarthritis: care instructions sneus Not available 02/04/2018 14:03:28 type 2 diabetes: care instructions sneus Not available 02/04/2018 14:03:28 high blood pressure: care instructions sneus Not available 02/04/2018 14:03:28 learning about high blood pressure sneus Not available 02/04/2018 14:03:28 Reason for Referral None Reported. Results Created Date Observation Date Name Description Value Unit Range Abnormal Flag Note LastModifiedBy Organization Detail LastModifiedTime 09/07/19 18 09/06/2017 HbA1c (hemo globi n A1c), blood HbA1c 7.2 Not Available [address] [place], [address], 09/06/2017 10:56:47 09/07/19 18 09/06/2017 INR, capil aamir blood INR 3.4 Not Available [facility] [address] [place], [place] [address] [place], [address], 09/06/2017 09:48:42 10/05/19 18 10/04/2017 INR, capil aamir blood INR 1.4 Not Available [facility] [address] [place], [address], 10/04/2017 08:32:50 11/02/19 18 11/01/2017 INR, capil aamir blood INR 2.4 Not Available [address] [place], [address], 11/01/2017 09:09:09 11/02/19 18 11/01/2017 INR, dax rutledge blood INR 2.4 Not Available [address] [place], [address], 11/01/2017 09:09:07 12/18/19 18 12/17/2017 urina lysis , dipst ick Leukocytes Negati ve Not Available [address] [place], [address], 12/17/2017 11:49:19 12/18/19 18 12/17/2017 urina lysis , dipst ick Nitrite negati ve Not Available [address] [place], [address], 12/17/2017 11:49:19 12/18/19 18 12/17/2017 urina lysis , dipst ick Urobilinogen .2 Not Available [address] [place], [address], 12/17/2017 11:49:19 12/18/19 18 12/17/2017 urina lysis , dipst ick Protein Negati ve Not Available [address] [place], [address], 12/17/2017 11:49:19 12/18/19 18 12/17/2017 urina lysis , dipst ick pH 7.0 Not Available [address] [place], [address], 12/17/2017 11:49:19 12/18/19 18 12/17/2017 urina lysis , dipst ick Blood Small Not Available [address] [place], [address], 12/17/2017 11:49:19 12/18/19 18 12/17/2017 urina lysis , dipst ick Specific [place] 1.015 Not Available [address] [place], [address], 12/17/2017 11:49:19 12/18/19 18 12/17/2017 urina lysis , dipst ick Ketone Negati ve Not Available [address] [place], [address], 12/17/2017 11:49:19 12/18/19 18 12/17/2017 urina lysis , dipst ick Bilirubin Negati ve Not Available [address] [place], [address], 12/17/2017 11:49:19 12/18/19 18 12/17/2017 urina lysis , dipst ick Glucose Negati ve Not Available [address] [place], [address], 12/17/2017 11:49:19 12/18/19 18 12/17/2017 urina lysis , dipst ick Appearance Clear Not Available [address] [place], [address], 12/17/2017 11:49:19 12/18/19 18 12/17/2017 urina lysis , dipst ick Color Yellow Not Available [address] [place], [address], 12/17/2017 11:49:19 12/18/19 18 12/17/2017 INR, capil aamir blood INR 3.2 Not Available [facility] [address] [place], [address], 12/17/2017 11:47:23 12/18/19 18 12/17/2017 HbA1c (hemo globi n A1c), blood HbA1c 8.2 Not Available [facility] [address] [place], [place] [address] [place], [address], 12/17/2017 11:36:03 01/15/20 18 01/14/2018 INR, capil aamir blood INR 1.9 Not Available [facility] [address] [place], [place] [address] [place], [address], 01/14/2018 09:21:50 02/05/20 18 02/04/2018 INR, capil aamir blood INR 1.6 Not Available [address] [place], [address], 02/04/2018 13:57:04 02/05/20 18 02/04/2018 HbA1c (hemo globi n A1c), blood HbA1c 7.9 Not Available [facility] [address] [place], [place] [address] [place], [address], 02/04/2018 13:56:10 09/28/19 18 09/27/2017 XR, abdom en + pelvi s No observ ation record ed. [facility] [address], [place], [address], 10/04/2017 09:28:08 10/01/19 18 09/30/2017 CT, abdom en + pelvi s, w/wo contr ast No observ ation record ed. [facility] [address], [place], [address], 10/04/2017 09:28:07 Result Notes None recorded. Problems Name Problem SNOMED Code Status Onset Date Resolution Date Notes Provider Name and Address Organization Details Recorded Time History of iron deficiency 348489474 Active 2016 Crystal Johnny null, [place] - [facility] 8 08:29:18 Malabsorpti on syndrome 39096125 Completed 201603/19/2017 Javier Nguyen null, [place] - [facility] 7 09:41:23 Body mass index 40+ - severely obese 692205156 Active 2016 Crystal Johnny null, [place] - [facility] 8 08:29:18 Major depressive disorder 743092698 Active 2016 Crystal Johnny null[place] - [facility] 8 08:29:18 History of calculus of kidney 646406968 Active 2017 Crystal Johnny null, [place] - [facility] 8 08:29:18 Depressive disorder 71931675 Completed 201702/04/2018 Gardenia Padilla null, [place] - [facility] 8 13:44:38 Anxiety 87486991 Active 2017 Crystal Johnny null[place] - [facility] 8 08:29:18 Diabetes mellitus 70243785 Active 2015 Crystal Johnny [place] - [facility] 8 08:29:18 Morbid obesity 170230677 Active 2015 Crystal Johnny [place] - [facility] 8 08:29:18 Essential hypertensio n 04168269 Active 2015 Crystal Johnny [place] - [facility] 8 08:29:18 Mixed hyperlipide andrés 030951076 Active 2015 Crystal Johnny [place] [facility] 8 08:29:18 Insomnia 302225731 Active 2015 Crystal Johnny [place] - [facility] 8 08:29:18 Pain of multiple joints 84788079 Active 2015 Crystal Johnny [place] - [facility] 8 08:29:18 Chronic back pain 490373573 Active 2015 Crystal Johnny null, [place] - [facility] 8 08:29:18 Osteoarthri tis 627116317 Active 2015 [place] Ortiz - [facility] 8 08:29:18 History of pulmonary embolus 877661172 Active 2015 [place] Ortiz - [facility] 8 08:29:18 Malignant neoplasm of uterus 968160000 Completed 201504/01/2016 [place] - [facility] 6 11:46:21 Renewal of prescriptio n Completed 201602/12/2017 Chela Ling RN [address], [place], [address], [place] - [facility] 7 15:26:39 Dupuytren's disease of palm 817069250 Active 2016 [place] Ortiz - [facility] 8 08:29:18 Pronation deformity of the foot 562273144 Active 2016 [place] Ortiz - [facility] 8 08:29:18 Long-term drug therapy Active 2016 [place] Ortiz - [facility] 8 08:29:18 Depressive disorder 34149304 Completed 201606/18/2017 [place] - [facility] 8 13:44:38 Problem Notes None recorded. Procedures Surgical History Date Name Laterality Status Provider Name and Address Organization Details Recorded Time Gastric Bypass completed Gardenia JALLOH - [facility] 04/01/2016 11:45:28 Hysterectomy, Total Abdominal completed Gardenia JALLOH - [facility] 04/01/20 16 11:45:42 Imaging Results None recorded. Procedure Notes None recorded. Medical Equipment None Reported. Allergies Allergen ID Allergen Name Allergen Category Reaction Reaction Severity Criticality Documentation Date Start Date Code Code System Note Provider Name and Address Organization Details Recorded Time 99276 Product containin g penicilli n (product) medicatio n rash Not available Not available 03/27/20162008 60173 8001 SNOMED React ion: rash; Not Available [facility] 6 09:55:09 38993 Bydureon medicatio n nausea Not available Not available 10/09/2016 87619 64 RxNorm Anisha Gallenste in [place] [facility] 11:05:09 Medications Name Sig Start Date Stop Date Status Note LastModified by Organization Details LastModified Time Prescript ion - Renewal 11/13 completed Not Available Not Available Not Available fluoxetin e 40 mg capsule take 1 capsule (40 mg) by oral route once daily in the morning 01/15 completed Not Available Not Available Not Available Megace 400 mg/10 mL (40 mg/mL) oral suspensio n take 10 millilit ers (400 mg) by oral route once daily 01/01 completed Megace 400 mg/10 mL (40 mg/mL) oral suspensi on;Recor ded Status: Recorded on: 05/01/20 08 1:14PM;D iscontin ued Status: Disconti nued on: 01/02/20 10 1:11PM;U ser: woodst Not Available Not Available Not Available Coumadin 7.5 mg tablet 10mg x2 days and 7.5 x 5days 03/20 completed Coumadin 7.5 mg oral tablet;R ecorded Status: Recorded on: 12/26/19 14 2:09PM;D iscontin ued Status: Disconti nued on: 03/20/20 14 2:00PM;U ser: neuss;Es t. Completi on: 01/25/20 14 Not Available Not Available Not Available venlafaxi ne ER 75 mg capsule,e xtended release 24 hr Take 1 capsule every day by oral route. 02/04 completed Not Available Not Available Not Available atorvasta tin 20 mg tablet take 1 tablet (20 mg) by oral route once daily 11/13 completed Not Available Not Available Not Available Norvasc 10 mg tablet take 1 tablet (10 mg) by oral route once daily for 30 days 2016 active Not Available Not Available Not Avai lable Drisdol 1,250 mcg (50,000 unit) capsule take 1 capsule (50,000 unit) by oral route once weekly 07/21 completed Drisdol 50,000 unit oral capsule; Recorded Status: Recorded on: 04/22/20 09 1:36PM;U ser: bishopk; Est. Completi on: 07/21/19 10;Indic ation: Vitamin D Deficien cy - (03.2689 00) Not Available Not Available Not Available azithromy cody 250 mg tablet take 2 tablets (500 mg) by oral route once daily for 3 days 09/06 completed Not Available Not Available Not Available tizanidin e 4 mg tablet TAKE 1 TABLET BY MOUTH EVERY 8 HOURS NEEDED, NOT TO EXCEED 3 DOSES IN 24 HOURS active Not Available Not Available No t Available Vicodin 5 mg-500 mg tablet take 1 tablet by oral route 2 times a day as needed 09/08 completed Vicodin 5-500 mg oral tablet;R ecorded Status: Recorded on: 08/11/19 14 9:46AM;D iscontin ued Status: Disconti nued on: 09/09/19 14 7:54PM;U ser: neuss;Es t. Completi on: 09/11/19 14 Not Available Not Available Not Available hydrochlo rothiazid e 50 mg tablet Take 1 tablet every day by oral route. active Not Available Not Available No t Available sotalol 80 mg tablet take 1 tablet (80 mg) by oral route 2 times per day for 30 days 06/24 completed sotalol 80 mg oral tablet;R ecorded Status: Recorded on: 12/05/19 15 11:47AM; Disconti nued Status: Disconti nued on: 06/24/19 16 2:19PM;U ser: neuss;In dication : Preventi on of Recurren t Atrial Fibrilla tion - (07.4273 13) Not Available Not Available Not Available Keflex 500 mg capsule take 1 capsule by oral route 3 times a day for 10 days 09/24 completed Keflex 500 mg oral capsule; Recorded Status: Recorded on: 07/30/19 11 3:21PM;D iscontin ued Status: Disconti nued on: 09/25/19 11 11:17AM; User: sho; Est. Completi on: 08/09/19 11;Indic ation: [employer] e Infectio n - (12.6869 00) Not Available Not Available Not Available Avelox 400 mg tablet take 1 tablet by oral route daily 08/06 completed Avelox 400 mg oral tablet;R ecorded Status: Recorded on: 08/06/19 09 1:54PM;D iscontin ued Status: Disconti nued on: 08/06/19 09 3:11PM;U ser: bishopk; Est. Completi on: 08/16/19 09;Indic ation: Bacteria l Pneumoni a - (4868 ) Not Available Not Available Not Available ondansetr on HCl 4 mg tablet take 1 q 4 hours prn 01/03 completed ondanset katia HCl 4 mg oral tablet;R ecorded Status: Recorded on: 01/01/20 10:48AM; User: madeleine;Dayna whitmore Completi on: 01/04/20 Not Available Not Available Not Available venlafaxi ne ER 150 mg capsule,e xtended release 24 hr Take 1 capsule every day by oral route. active Not Available Not Available No t Available Wellbutri n SR 150 mg tablet, 12 hr sustained -release take 1 tablet by oral route daily 06/02 completed Wellbutr in SR 150 mg oral tablet extended release; Prescrib e Status: Prescrib ed on: 12/05/19 12:01PM; User: madeleine;Dayna whitmore Completi on: 06/02/20 15;Indic ation: Major Depressi ve Disorder - (2975 );Phar Brandt fied: 12/05/19 15 12:01PM Not Available Not Available Not Available promethaz ine 6.25 mg-codein e 10 mg/5 mL syrup take 5 millilit ers by oral route every 6 hours as needed, not to exceed 30 mL in 24 hours for 10 days 01/30 completed prometha zine-cod eine 6.25-10 mg/5 mL oral syrup;Re corded Status: Recorded on: 07/26/19 16 2:22PM;D iscontin ued Status: Disconti nued on: 01/31/20 16 10:59AM; User: madeleine;Es t. Completi on: 08/05/19 16;Indic ation: Cough - (6170 ) Not Available Not Available Not Available Biaxin 500 mg tablet take 1 tablet by oral route 2 times a day for 10 days 11/27 completed Biaxin 500 mg oral tablet;R ecorded Status: Recorded on: 08/06/19 09 3:11PM;D iscontin ued Status: Disconti nued on: 11/28/19 09 1:44PM;U ser: bishopk; Est. Completi on: 08/16/19 09;Indic ation: Bacteria l Pneumoni a - (3658 ) Not Available Not Available Not Available ciproflox acin 500 mg tablet 11/01 completed Not Available Not Available Not Available tramadol 50 mg tablet take 1 tablet (50 mg) by oral route every 6 hours as needed for 30 days 08/11 completed tramadol 50 mg oral tablet;R ecorded Status: Recorded on: 01/01/20 11 4:51PM;D iscontin ued Status: Disconti nued on: 08/11/19 14 9:46AM;U ser: neuss;Es t. Completi on: 06/29/19 12 Not Available Not Available Not Available amitripty line 50 mg tablet take 1 tablet (50 mg) by oral route once daily at bedtime for 30 days 11/04 completed amitript yline 50 mg oral tablet;R ecorded Status: Recorded on: 09/02/19 11 9:15AM;D iscontin ued Status: Disconti nued on: 11/05/19 13 9:04AM;U ser: k; Est. Completi on: 10/02/19 11;Indic ation: Depressi on - (5995 ) Not Available Not Available Not Available Celebrex 200 mg capsule take 1 capsule (200 mg) by oral route once daily 03/06 completed Celebrex 200 mg oral capsule; Recorded Status: Recorded on: 05/01/20 08 1:14PM;D iscontin ued Status: Disconti nued on: 03/06/20 09 1:47PM;U ser: woodst;I ndicatio n: Osteoart hritis - (5408 ) Not Available Not Available Not Available oxycodone -acetamin ophen 5 mg-325 mg tablet take 1 tablet by oral route every 4 hours as needed for 10 days 11/01 completed Not Available Not Available Not Available warfarin 6 mg tablet take 1 tablet (6 mg) by oral route once daily 02/25 completed warfarin 6 mg oral tablet;R ecorded Status: Recorded on: 10/22/19 11 2:00PM;D iscontin ued Status: Disconti nued on: 02/26/20 11 10:56AM; User: [facility] Not Available Not Available Not Available Midrin 65 mg-100 mg-325 mg capsule take 2 capsules by oral route to start, then 1 capsule every hour until relief, not to exceed 5 capsules within a 12 hour period 11/04 completed Midrin 65-100-3 25 mg oral capsule; Recorded Status: Recorded on: 03/14/20 10 1:07PM;D iscontin ued Status: Disconti nued on: 11/05/19 13 9:04AM;U ser: madeleine;Dayna Mckenzie on: 05/13/20 10 Not Available Not Available Not Available tamsulosi n 0.4 mg capsule take 1 capsule (0.4 mg) by oral route once daily 1/2 hour followin g the same meal each day prn active Not Available Not Available No t Available Humalog U-100 Insulin 100 unit/mL subcutane ous solution inject 60 unitswit h meals 09/24 completed Humalog 100 unit/mL subcutan eous solution ;Recorde d Status: Recorded on: 09/13/19 14 11:51AM; User: Mason Mckenzie on: 03/11/20 14 Not Available Not Available Not Available OneTouch Ultra Test strips test tid E11.65 active Not Available Not Available No t Available hydrocodo ne 7.5 mg-acetam inophen 325 mg tablet Take 0.5 tablets 3 times a day by oral route as needed. 2017 active Not Available Not Available Not Avai lable trazodone 150 mg tablet take 1 tablet by oral route daily active Not Available Not Available No t Available ferrous sulfate 325 mg (65 mg iron) tablet take 1 tablet by oral route 2 times a day 07/21 completed ferrous sulfate 325 mg (65 mg iron) oral tablet;R ecorded Status: Recorded on: 04/22/20 09 1:36PM;U ser: k; Est. Mckenzie on: 07/21/19 10;Indic ation: Iron Deficien cy Anemia - (2657 ) Not Available Not Available Not Available metformin 1,000 mg tablet Take 1 tablet twice a day by oral route. active Not Available Not Available No t Available warfarin 5 mg tablet TAKE 1 & 1/2 (ONE & ONE-HALF ) TABLETS BY MOUTH ONCE DAILY FOR 5 DAYS PER WEEK, AND 2 TABS ONCE DAILY FOR 2 DAYS PER WEEK active Not Available Not Available No t Available megestrol 40 mg tablet take 1 tablet by oral route daily 03/27 completed megestro l 40 mg oral tablet;R ecorded Status: Recorded on: 01/02/20 10 1:15PM;D iscontin ued Status: Disconti nued on: 03/27/20 14 10:01AM; User: sho Not Available Not Available Not Available Xenical 120 mg capsule take 1 capsule (120 mg) by oral route 3 times per day with each main meal containi ng fat 04/01 completed Xenical 120 mg oral capsule; Recorded Status: Recorded on: 01/31/20 16 10:59AM; User: Mason whitmore Completi on: 07/29/19 17;Indic ation: Weight Loss Manageme nt for Obese Patient (BMI >= 30) - (1694 ) Not Available Not Available Not Available lisinopri l 30 mg tablet take 1 tablet (30 mg) by oral route once daily 11/27 completed lisinopr il 30 mg oral tablet;R ecorded Status: Recorded on: 05/01/20 08 1:14PM;D iscontin ued Status: Disconti nued on: 11/28/19 09 3:18PM;U ser: woodst;I ndicatio n: Hyperten brittaney - (7090 ) Not Available Not Available Not Available Polytrim 10,000 unit-1 mg/mL eye drops instill 1 drop in affected eye QID 08/11 completed Polytrim 10,000 unit- 1 mg/mL ophthalm ic drops;Pr escribe Status: Prescrib ed on: 04/17/20 13 5:35PM;D iscontin ued Status: Disconti nued on: 08/11/19 14 9:46AM;U ser: grayn;Ph Irwin rified: 04/17/20 13 5:35PM Not Available Not Available Not Available Astelin 137 mcg (0.1 %) nasal spray inhale 2 sprays in each nostril by intranas al route 2 times per day 09/11 completed Astelin 137 mcg (0.1 %) nasal aerosol, spray;Re corded Status: Recorded on: 07/10/19 10 9:06AM;D iscontin ued Status: Disconti nued on: 09/12/19 10 1:47PM;U ser: rankinw; Est. Completi on: 08/09/19 10;Indic ation: Allergic Rhinitis - (4779 );Prin kentrell: 07/10/19 10 Not Available Not Available Not Available hydrochlo rothiazid e 25 mg tablet take 1 tablet (25 mg) by oral route once daily 08/09 completed Not Available Not Available Not Available levofloxa cody 500 mg tablet take 1 tablet (500 mg) by oral route once daily for 10 days 04/01 completed Not Available Not Available Not Available zolpidem 10 mg tablet take 1 tablet by oral route QPM prn 11/13 completed Not Available Not Available Not Available albuterol sulfate HFA 90 mcg/actua tion aerosol inhaler inhale 2 puffs by inhalati on route every 4-6 hours as needed for 30 days 07/02 completed albutero l sulfate 90 mcg/actu ation inhalati on HFA aerosol inhaler; Recorded Status: Recorded on: 02/20/20 09 4:23PM;D iscontin ued Status: Disconti nued on: 07/02/19 10 12:55PM; User: [email or web address] ;Est. Completi on: 05/20/20 09;Print ed: 02/20/20 09 Not Available Not Available Not Available oxybutyni n chloride 5 mg tablet active Not Available Not Available Not Available Caney 5 mg-325 mg tablet Take 0.5 tablets 3 times a day by oral route. 03/19 completed Not Available Not Available Not Available lisinopri l 40 mg tablet Take 1 tablet twice a day by oral route. 2017 active Not Available Not Available Not Avai lable ondansetr on 4 mg disintegr ating tablet 11/01 completed Not Available Not Available Not Available fluoxetin e 20 mg capsule take 1 capsule by oral route daily 11/04 completed fluoxeti ne 20 mg oral capsule; Recorded Status: Recorded on: 05/08/20 10 1:57PM;D iscontin ued Status: Disconti nued on: 11/05/19 13 9:04AM;U ser: [email or web address]; Est. Completi on: 03/26/20 11;Indic ation: Depressi on - (9110 00) Not Available Not Available Not Available loratadin e 10 mg tablet take 1 tablet (10 mg) by oral route once daily 11/04 completed loratadi ne 10 mg oral tablet;R ecorded Status: Recorded on: 07/10/19 10 9:06AM;D iscontin ued Status: Disconti nued on: 11/05/19 13 9:04AM;U ser: [email or web address]; Est. Completi on: 10/09/19 10;Indic ation: Allergic Rhinitis - (7880 00);Prin kentrell: 07/10/19 10 Not Available Not Available Not Available Bactrim DS 800 mg-160 mg tablet take 1 tablet by oral route every 12 hours for 10 days 03/22 completed Bactrim DS 800-160 mg oral tablet;R ecorded Status: Recorded on: 02/26/20 11 11:52AM; Disconti nued Status: Disconti nued on: 03/22/20 12 8:14PM;U ser: [email or web address];Es t. Completi on: 03/07/20 11 Not Available Not Available Not Available enoxapari n 100 mg/mL subcutane ous syringe Inject 1 mL twice a day by subcutan eous route for 5 days. 12/17 completed Not Available Not Available Not Available pen needle, diabetic 31 gauge x 11/03 active Not Available Not Available Not Available Novolog FlexPen U-100 Insulin aspart 100 unit/mL (3 mL) subcutane ous 15 units 30 min before meals TID 2017 active Not Available Not Available Not Avai lable Prilosec OTC 20 mg tablet,de layed release take 1 tablet by oral route daily 04/01 completed Prilosec OTC 20 mg oral tablet,d elayed release (DR/EC); Recorded Status: Recorded on: 05/01/20 08 1:23PM;U ser: woodst Not Available Not Available Not Available bupropion HCl XL 150 mg 24 hr tablet, extended release TAKE ONE TABLET BY MOUTH ONCE DAILY 01/15 completed Not Available Not Available Not Available Mucinex DM 30 mg-600 mg tablet,ex tended release 12 hr take 1 - 2 tablets by oral route every 12 hours as needed for 10 days 07/02 completed Mucinex DM 30-600 mg oral tablet extended release 12 hr;Recor ded Status: Recorded on: 02/20/20 09 4:23PM;D iscontin ued Status: Disconti nued on: 07/02/19 10 12:55PM; User: [email or web address] Mckenzie on: 03/01/20 09;Indic ation: Cough - (7862 00);Prin kentrell: 02/20/20 09 Not Available Not Available Not Available Byetta 5 mcg/dose (250 mcg/mL)1. 2 mL subcutane ous pen injector inject 0.02 millilit er (5 mcg) by subcutan eous route 2 times per day before morning and evening meals 03/06 completed Byetta 5 mcg/dose (250 mcg/mL) 1.2 mL subcutan eous pen injector ;Recorde d Status: Recorded on: 05/01/20 08 1:14PM;D iscontin ued Status: Disconti nued on: 03/06/20 09 1:47PM;U ser: woodst;I ndicatio n: Type 2 Diabetes Mellitus Treatmen t Adjunct - () Not Available Not Available Not Available warfarin 5mg tab 1.5 tabs x 6 days and 2 tabs x 1 day 01/15 completed Not Available Not Available Not Available lisinopri l 40mg qd 11/13 completed Not Available Not Available Not Available BD Integra Needle 23 gauge x 1 use as directed 02/18 completed BD Integra Needle 23 gauge x 1 miscella neous needle;R ecorded Status: Recorded on: 07/02/19 10 12:55PM; Disconti nued Status: Disconti nued on: 02/19/20 15 11:34AM; User: [email or web address];Es t. Completi on: 12/30/19 10 Not Available Not Available Not Available OneTouch UltraMini kit active Not Available Not Available Not Available Lantus Solostar U-100 Insulin 100 unit/mL (3 mL) subcutane ous pen Inject 15 units every day by subcutan eous route in the evening for 100 days. 11/01 completed Not Available Not Available Not Available Bystolic 10 mg tablet take 1 tablet by oral route daily 11/04 completed Bystolic 10 mg oral tablet;R ecorded Status: Recorded on: 09/25/19 11 11:59AM; Disconti nued Status: Disconti nued on: 11/05/19 13 9:04AM;U ser: [email or web address]; Est. Completi on: 03/23/20 11;Indic ation: Hyperten brittaney - (8595 ) Not Available Not Available Not Available Viibryd 40 mg tablet take 1 tablets (40 mg) by oral route once daily with food 08/11 completed Viibryd 40 mg oral tablet;R ecorded Status: Recorded on: 06/26/19 14 12:55PM; Disconti nued Status: Disconti nued on: 08/11/19 14 9:46AM;U ser: [email or web address];Es t. Completi on: 12/24/19 14;Indic ation: Major Depressi ve Disorder - (8880 00) Not Available Not Available Not Available Viibryd 20 mg tablet take 1 tablets (40 mg) by oral route once daily with food 06/26 completed Viibryd 20 mg oral tablet;R ecorded Status: Recorded on: 05/10/20 13 11:38AM; Disconti nued Status: Disconti nued on: 06/26/19 14 12:55PM; User: [email or web address];Dayna [email or web address] Anuragroman on: 11/07/19 14;Indic ation: Major Depressi ve Disorder - (2966 ) Not Available Not Available Not Available Victoza 3-Julio César 0.6 mg/0.1 mL (18 mg/3 mL) subcutane ous pen injector 1.8mg sc qd x 90 day active Not Available Not Available No t Available Fetzima 40 mg capsule,e xtended release TAKE ONE CAPSULE BY MOUTH ONCE DAILY 11/13 completed Not Available Not Available Not Available Levemir FlexTouch U-100 Insulin 100 unit/mL (3 mL) subcutane ous pen Inject 15 units every day by subcutan eous route at bedtime. 2016 active Not Available Not Available Not Avai lable Tanzeum 30 mg/0.5 mL subcutane ous pen injector Inject 0.5 mL every week by subcutan eous route. 03/19 completed Not Available Not Available Not Available OneTouch Ultra Blue Test Strip active Not Available Not Available Not Available Vitals Date Recorded Body height Body mass index (BMI) Body weight Heart rate Oxygen saturation Oxygen saturation in Arterial blood by Pulse oximetry Respiratory rate Systolic And Diastolic Provider Name and Address Organization Details Last Updated DateTime 8 173.99 cm 50.3 kg/m2 456043. 04 g 82 /min 94 % 94 % 18 /min 168/84 mm[Hg] [facility] - [facility] 8 08:35:57 Date Recorded Body height Body mass index (BMI) Body weight Heart rate Oxygen saturation Oxygen saturation in Arterial blood by Pulse oximetry Respiratory rate Systolic And Diastolic Provider Name and Address Organization Details Last Updated DateTime 8 173.99 cm 49.6 kg/m2 823759. 07 g 88 /min 96 % 96 % 18 /min 142/78 mm[Hg] [facility] [place] - [facility] 8 09:19:01 Date Recorded Body height Body mass index (BMI) Body weight Heart rate Respiratory rate Oxygen saturation Oxygen saturation in Arterial blood by Pulse oximetry Systolic And Diastolic Provider Name and Address Organization Details Last Updated DateTime 8 173.99 cm 49.7 kg/m2 452784. 67 g 96 /min 18 /min 96 % 96 % 142/98 mm[Hg] Gardenia Padilla [place] - [facility] 8 11:34:15 Date Recorded Body height Body mass index (BMI) Body weight Heart rate Oxygen saturation Oxygen saturation in Arterial blood by Pulse oximetry Respiratory rate Systolic And Diastolic Provider Name and Address Organization Details Last Updated DateTime 8 173.99 cm 51.5 kg/m2 904766. 78 g 83 /min 95 % 95 % 18 /min 162/78 mm[Hg] Crystal Johnny [place] - [facility] 8 09:31:17 Date Recorded Body height Body mass index (BMI) Body weight Heart rate Respiratory rate Systolic And Diastolic Provider Name and Address Organization Details Last Updated DateTime 8 173.99 cm 48.7 kg/m2 894496. 52 g 80 /min 18 /min 160/92 mm[Hg] Gardenia Padilla [place] - [facility] 8 13:51:53 Social History Question Answer Notes LastModified by Organizat ion Details LastModified Time Tobacco Smoking Status Former Smoker Gardenia Padilla [facility] 04/01/2016 11:43:29 What Is Your Level Of Caffeine Consumption? Occasional [email or web address] Information not available 04/01/2016 Which Illicit Or Recreational Drugs Have You Used? None [email or web address] Information not available 04/01/2016 Hard Of Hearing Or Deaf In One Or Both Ears? No [email or web address] Information not available 04/29/2016 Legally Blind In One Or Both Eyes? No Information no t available 04/29/2016 Live Alone Or With Others? Alone [email or web address] Information not available 04/01/2016 What Was The Date Of Your Most Recent Tobacco Screening? 01/14/2018 Information not available 01/11/2019 What Is Your Relationship Status? Single [email or web address] Information not available 04/01/2016 Smoke Alarm In Home Yes [email or web address] Information not available 04/29/2016 How Much Tobacco Do You Smoke? 2 PPD Information not available 04/01/2016 General Stress Level Medium [email or web address] Information not available 04/01/2016 Has Tobacco Cessation Counseling Been Provided? No [email or web address] Information not available 09/06/2017 How Many Years Have You Smoked Tobacco? 15 [email or web address] Information not available 04/01/2016 Sex: Female Functional Status Question Answer Note LastModified by Organizat ion Details LastModified Time What is your level of alcohol consumption? None Information not available 04/01/2016 Are you currently employed? disabled [email or web address] Information not available 04/01/2016 Are you able to care for yourself? Yes Information not available 04/01/2016 What is your exercise level? as tolerated [email or web address] Information not available 04/01/2016 Mental Status None recorded. Family History Relationship Description Onset Age of this Age Resolved Age Notes LastModified by Organization Details LastModified Time Mother Peripheral vascular disease [email or web address] Not available 2015 11:41:14 Father Diabetes mellitus Not available 2015 11:42:40 Father Coronary arterioscler osis [email or web address] Not available 2015 11:43:11 Maternal Grandfather Coronary arterioscler osis Not available 2015 11:43:11 Medical History Condition Response Pulmonary Embolism Y Osteoarthritis Y Hyperlipidemia Y Hypertension Y Gynecological HistoryNo gynecological history recorded. Obstetrics History GPAL:G 0 P 0 0 0 0 Immunizations Vaccine Type Date Status Note Provider Nam e and Address Organization Details Recorded Time Influenza, split virus, quadrivalent, PF 6 completed Not Available [facility] 07/08/2019 03:54:16 Pneumococcal conjugate PCV 13 6 completed Chela Turner [facility], [place] - [facility] 03/08/2018 08:29:19 influenza, unspecified formulation 8 completed Not Available [facility] 07/22/2019 02:21:47 influenza, unspecified formulation 2 completed Not Available [facility] 07/22/2019 02:21:47 influenza, unspecified formulation 0 completed Not Available [facility] 07/22/2019 02:21:47 influenza, unspecified formulation 4 completed Not Available [facility] 07/22/2019 02:21:46 influenza, unspecified formulation 5 completed Not Available [facility] 07/22/2019 02:21:46 influenza, unspecified formulation 1 completed Not Available [facility] 07/22/2019 02:21:46 Tdap 3 completed Not Available [facility] 07/22/2019 02:21:46 Influenza, split virus, quadrivalent, preservative 8 completed Not Available [facility] 07/08/2019 03:54:49 pneumococcal polysaccharide PPV23 4 completed Not Available [facility] 07/22/2019 02:21:58 Past Encounters Encounter ID Performer Location Encounter Start Date Encounter Closed Date Diagnosis/Indication Diagnosis SNOMED-CT Code Diagnosis ICD10 Code Diagnosis Note [id number] Javier Nguyen MD [facility] [address] [place] [place] [address] 04/01/2016 10:30:00 04/01/2016 12:43:42 Foot pain 88151953 M79.672 Administra tion of influenza vaccine 42951496 Z23 Osteoarthritis 657286589 M19.90 Pain of mu ltiple joints 72554583 M25.50 Insomnia 000094177 G47.0 0 Essential hypertension 93855848 I10 Diabetes mellitus 826855 09 E11.9 Influenza vaccine needed 4273578831 106 Z23 [id number] [facility] [address] [place] [address] 03/31/2010 00:00:00 [id number] [facility] [address] [place] [address] 06/04/2010 00:00:00 [id number] [facility] [address] [place] [address] 09/24/2010 00:00:00 [id number] [facility] [address] [place] [address] 10/08/2010 00:00:00 [id number] [facility] [address] [place] [address] 10/15/2010 00:00:00 [id number] [facility] [address] [place] [address] 10/21/2010 00:00:00 [id number] [facility] [address] [place] [address] 11/18/2010 00:00:00 [id number] [facility] [address] [place] [address] 12/31/2010 00:00:00 [id number] [facility] [address] [place] [address] 02/25/2011 00:00:00 [id number] [facility] [address] [place] [address] 03/04/2011 00:00:00 [id number] [facility] [address] [place] [address] 05/05/2011 00:00:00 [id number] [facility] [address] [place] [address] 06/16/2011 00:00:00 [id number] [facility] [address] [place] [address] 08/04/2011 00:00:00 [id number] [facility] [address] [place] [address] 08/18/2011 00:00:00 [id number] [facility] [address] [place] [address] 08/21/2011 00:00:00 [id number] [facility] [address] [place] [address] 08/08/2012 00:00:00 [id number] [facility] [address] [place] [address] 09/05/2012 00:00:00 [id number] [facility] [address] [place] [address] 10/07/2012 00:00:00 [id number] [facility] [address] [place] [address] 11/04/2012 00:00:00 [id number] [facility] [address] [place] [address] 12/05/2012 00:00:00 [id number] [facility] [address] [place] [address] 12/28/2012 00:00:00 [id number] [facility] [address] [place] [address] 01/18/2013 00:00:00 [id number] [facility] [address] [place] [address] 09/04/2011 00:00:00 [id number] [facility] [address] [place] [address] 12/07/2011 00:00:00 [id number] [facility] [address] [place] [address] 01/29/2014 00:00:00 [id number] [facility] [address] [place] [address] 02/27/2014 00:00:00 [id number] [facility] [address] [place] [address] 03/27/2014 00:00:00 [id number] [facility] [address] [place] [address] 04/25/2014 00:00:00 [id number] [facility] [address] [place] [address] 05/21/2014 00:00:00 [id number] [facility] [address] [place] [address] 06/22/2014 00:00:00 [id number] [facility] [address] [place] [address] 07/24/2014 00:00:00 [id number] [facility] [address] [place] [address] 02/10/2012 00:00:00 [id number] [facility] [address] [place] [address] 10/05/2014 00:00:00 [id number] [facility] [address] [place] [address] 05/02/2012 00:00:00 [id number] [facility] [address] [place] [address] 11/02/2014 00:00:00 [id number] [facility] [address] [place] [place] [address] 07/04/2012 00:00:00 [id number] [facility] [address] [place] [address] 12/04/2014 00:00:00 [id number] [facility] [address] [place] [address] 01/18/2015 00:00:00 [id number] [facility] [address] [place] [address] 02/21/2013 00:00:00 [id number] [facility] [address] [place] [address] 02/18/2015 00:00:00 [id number] [facility] [address] [place] [address] 04/10/2013 00:00:00 [id number] [facility] [address] [place] [address] 04/02/2015 00:00:00 [id number] [facility] [address] [place] [address] 04/17/2013 00:00:00 [id number] [facility] [address] [place] [address] 05/24/2015 00:00:00 [id number] [facility] [address] [place] [address] 05/10/2013 00:00:00 [id number] [facility] [address] [place] [address] 06/26/2013 00:00:00 [id number] [facility] [address] [place] [address] 08/11/2013 00:00:00 [id number] [facility] [address] [place] [address] 09/08/2013 00:00:00 [id number] [facility] [address] [place] [address] 10/02/2013 00:00:00 [id number] [facility] [address] [place] [address] 11/03/2013 00:00:00 [id number] [facility] [address] [place] [address] 11/17/2013 00:00:00 [id number] [facility] [address] [place] [address] 12/01/2013 00:00:00 [id number] [facility] [address] [place] [address] 12/25/2013 00:00:00 [id number] [facility] [address] [place] [address] 01/29/2014 00:00:00 [id number] Javier Nguyen MD [address] [place] [address] 04/29/2016 10:04:20 04/29/2016 11:07:48 Anticoagulant therapy 646743482 Z79.01 Warfarin m onitoring status 452495554 Z51.81 Chronic back pain 375374 002 G89.29 History of pulmonary embolus 758597438 Z86.711 Osteoarthritis 101449508 M19.90 Pain of mu ltiple joints 22678258 M25.50 Morbid obesity 569191723 E66.01 Diabetes mellitus 851790 09 E11.9 [id number] Javier Nguyen MD [address] [place] [address] 05/29/2016 09:21:11 05/29/2016 10:08:44 History of pulmonary embolus 942024701 Z86.711 Anticoagulant therapy 18 3529314 Z79.01 Renewal of prescription 832885138 Z76.0 Pain of mu ltiple joints 49310630 M25.50 [id number] Javier Nguyen MD [address] [place] [address] 07/10/2016 09:20:32 07/10/2016 11:53:48 Diabetes mellitus 60973979 E11.9 Essential hypertension 45869486 I10 Chronic back pain 026310 002 G89.29 Pain of mu ltiple joints 90149352 M25.50 Warfarin m onitoring status 182946732 Z51.81 patient to start 12.50mg today and start 10 mg wednesday and / 7.50mg the rest of the days Fatigue 93537700 R53.83 Mixed hyperlipidemia 267 935995 E78.2 [id number] Javier Nguyen MD [address] [place] [address] 08/07/2016 08:22:29 08/07/2016 09:19:57 Osteoarthritis 279117685 M19.90 Chronic back pain 431267 002 G89.29 Warfarin m onitoring status 433949692 Z51.81 patient to start 12.50mg today and start 10 mg wednesday and / 7.50mg the rest of the days Renewal of prescription 923402814 Z76.0 Pain of mu ltiple joints 85589050 M25.50 Morbid obesity 042148116 E66.01 Dupuytren' s disease of palm 991557102 M72.0 Pronation deformity of the foot 109415624 M21.6X9 [id number] Javier Nguyen MD [address] [place] [address] 09/04/2016 08:44:37 09/04/2016 09:37:47 Diabetes mellitus 24754662 E11.9 Essential hypertension 28407426 I10 Chronic back pain 076622 002 G89.29 Pain of mu ltiple joints 76430851 M25.50 Warfarin m onitoring status 961348425 Z51.81 10mg x 3 days and 7.5mg x 4 days Long-term drug therapy 199610603 Z79.899 Depressive disorder 3548 9007 F32.9 [id number] Javier Nguyen MD [place] [address] [place] [address] 10/09/2016 09:43:19 10/09/2016 13:44:18 Warfarin monitoring status 420938451 Z51.81 10mg x 3 days and 7.5mg x 4 days Abdominal pain 38903751 R10.9 Pain of mu ltiple joints 12110284 M25.50 Chronic back pain 886140 002 G89.29 Morbid obesity 930822227 E66.01 Depressive disorder 3548 9007 F32.9 [id number] Javier Nguyen MD [address] [place] [address] 11/13/2016 08:10:12 11/13/2016 08:53:33 Long-term drug therapy 865857270 Z79.899 Anticoagulant therapy 18 1642778 Z79.01 Warfarin m onitoring status 757212028 Z51.81 5mg x 4 days and 7.5mg x 3 days Body mass index 40+ - severely obese 809083629 Z68.41 [id number] Javier Nguyen MD [address] [place] [address] 12/11/2016 09:50:44 12/11/2016 11:31:16 Depressive disorder 18891270 F32.9 Essential hypertension 05658033 I10 Body mass index 40+ - severely obese 304439345 Z68.43 Uncontroll ed type 2 diabetes mellitus 532056377 E11.65 Warfarin m onitoring status 724581532 Z51.81 5mg x 4 days and 7.5mg x 3 days [id number] Javier Nguyen MD [address] [place] [address] 01/15/2017 11:25:10 01/15/2017 13:46:52 Depressive disorder 69984922 F32.9 Pain of mu ltiple joints 29932520 M25.50 Warfarin m onitoring status 868716242 Z51.81 5mg x 4 days and 7.5mg x 3 days Uncontroll ed type 2 diabetes mellitus 890259727 E11.65 [id number] Javier Nguyen MD [place] [address] [place] [address] 02/15/2017 08:21:14 02/15/2017 09:21:02 Diabetes mellitus 75164546 E11.9 Pain of mu ltiple joints 44131760 M25.50 Chronic back pain 121353 002 G89.29 Depressive disorder 3548 9007 F32.9 Warfarin m onitoring status 709558077 Z51.81 10mg x 43days and 7.5mg x 4 days Body mass index 40+ - severely obese 928467638 Z68.43 [id number] Javier Nguyen MD [address] [place] [address] 03/19/2017 08:25:29 03/19/2017 09:56:53 Diabetes mellitus 75143683 E11.9 Pain of mu ltiple joints 41141953 M25.50 Chronic back pain 877296 002 G89.29 Renewal of prescription 973563852 Z76.0 Warfarin m onitoring status 874637998 Z51.81 10mg x 2days and 7.5mg x 5 days [id number] Javier Nguyen MD [place] [address] [place] [address] 04/19/2017 09:02:35 04/19/2017 10:38:19 Chronic back pain 720176150 G89.29 Pain of mu ltiple joints 36017261 M25.50 Anticoagulant therapy 18 6330286 Z79.01 Body mass index 40+ - severely obese 851221820 Z68.43 Essential hypertension 58237644 I10 Renewal of prescription 783289499 Z76.0 [id number] Javier Nguyen MD [place] [address] [address] [place] [address] 05/17/2017 08:15:40 05/17/2017 09:36:25 Depressive disorder 76288447 F32.9 Essential hypertension 07466045 I10 Renewal of prescription 760438846 Z76.0 Uncontroll ed type 2 diabetes mellitus 610175100 E11.65 Influenza- like symptoms 433009679 R68.89 Warfarin m onitoring status 274387680 Z51.81 10mg x 2days and 7.5mg x 5 days Body mass index 40+ - severely obese 941321600 Z68.43 Chronic back pain 599522 002 G89.29 Insomnia 860767524 G47.0 0 [id number] Javier Nguyen MD [address] [place] [address] 06/09/2017 08:14:09 06/09/2017 09:50:53 Depressive disorder 84497647 F32.9 Chronic back pain 772782 002 G89.29 Pain of mu ltiple joints 01311030 M25.50 Mixed hyperlipidemia 267 966549 E78.2 Essential hypertension 68598183 I10 Renewal of prescription 738173897 Z76.0 Long-term drug therapy 235937315 Z79.899 Anticoagulant therapy 18 2452886 Z79.01 Warfarin m onitoring status 834641866 Z51.81 10mg x 2days and 7.5mg x 5 days Uncontroll ed type 2 diabetes mellitus 020852351 E11.65 [id number] Javier Nguyen MD [address] [place] [address] 07/12/2017 08:51:06 07/12/2017 10:49:33 Major depressive disorder 835223054 F32.9 History of iron deficiency 399797688 Z86.39 Long-term drug therapy 549214208 Z79.899 Osteoarthritis 692076228 M19.90 Insomnia 805080218 G47.0 0 Mixed hyperlipidemia 267 964285 E78.2 Essential hypertension 39009934 I10 Diabetes mellitus 103232 09 E11.9 Anticoagulant therapy 18 8731777 Z79.01 Warfarin m onitoring status 370669561 Z51.81 10mg x 3days and 7.5mg x 4 days Body mass index 40+ - severely obese 814685330 Z68.43 Uncontroll ed type 2 diabetes mellitus 887675364 E11.65 Chronic back pain 755324 002 G89.29 Administra tion of influenza vaccine 01132004 Z23 [id number] Rita Herring MS, RD, LD [address] [place] [address] 07/15/2017 08:30:45 07/15/2017 09:14:28 Diabetes mellitus 61544662 E13.8 [id number] Javier Nguyen MD [address] [place] [address] 08/09/2017 08:26:57 08/09/2017 10:10:43 Essential hypertension 11777790 I10 Pain of mu ltiple joints 05940410 M25.50 Warfarin m onitoring status 228183125 Z51.81 10mg x 4days and 7.5mg x 3days--no med x 2 days Chronic back pain 885380 002 G89.29 Acute sinusitis 99428418 J01.90 Mixed hyperlipidemia 267 852416 E78.2 [id number] Javier Nguyen MD [address] [place] [address] 09/06/2017 09:44:54 09/06/2017 11:28:33 Diabetes mellitus 53080810 E11.9 Morbid obesity 863059646 E66.01 Anticoagulant therapy 18 1787763 Z79.01 Warfarin m onitoring status 673534495 Z51.81 10mg x 4days and 7.5mg x 3days Essential hypertension 78475693 I10 Mixed hyperlipidemia 267 587217 E78.2 Chronic back pain 427878 002 G89.29 [id number] Javier Nguyen MD [address] [place] [address] 10/04/2017 08:12:51 10/04/2017 09:05:40 Long-term drug therapy 792991768 Z79.899 Anticoagulant therapy 18 8511076 Z79.01 Warfarin m onitoring status 235208880 Z51.81 10mg x 4days and 7.5mg x 3days Chronic back pain 511551 002 G89.29 Body mass index 40+ - severely obese 020938332 Z68.43 Pain of mu ltiple joints 71709513 M25.50 Mixed hyperlipidemia 267 826256 E78.2 Essential hypertension 86402577 I10 Diabetes mellitus 708923 09 E11.9 Calculus o f kidney and ureter 102851736 N20.2 [id number] Javier Nguyen MD [address] [place] [address] 11/01/2017 08:39:25 11/01/2017 11:20:38 Warfarin monitoring status 693862471 Z51.81 10mg x 4days and 7.5mg x 3days Anticoagulant therapy 18 1276160 Z79.01 Depressive disorder 3548 9007 F32.9 [id number] Javier Nguyen MD [address] [place] [address] 12/17/2017 09:54:35 12/17/2017 11:49:34 Chronic back pain 349426152 G89.29 Essential hypertension 60910509 I10 Uncontroll ed type 2 diabetes mellitus 805048023 E11.65 Persistent insomnia 1919 80535 G47.09 Warfarin m onitoring status 497938663 Z51.81 10mg x 4days and 5 mg x 3days History of pulmonary embolus 897630842 Z86.711 Chronic low back pain 27 8882683 M54.5 History of calculus of kidney 466758976 Z87.442 Diabetes mellitus 133781 09 E11.9 Morbid obesity 765589347 E66.01 Depressive disorder 3548 9007 F32.9 Anxiety 75718404 F41.9 [id number] Javier Nguyen MD [address] [place] [address] 01/14/2018 09:07:21 01/14/2018 10:35:45 Warfarin monitoring status 207986156 Z51.81 10 mg x 4 days7.5 mg x 3 days new dose Anticoagulant therapy 18 3918445 Z79.01 [id number] Javier Nguyen MD [address] [place] [address] 02/04/2018 13:20:06 02/04/2018 14:35:08 Pain of multiple joints 27608877 M25.50 Osteoarthritis 379486836 M19.90 Essential hypertension 00323900 I10 Uncontroll ed type 2 diabetes mellitus 463115467 E11.65 Warfarin m onitoring status 541605497 Z51.81 10 mg x 4 days7.5 mg x 3 days new dose Chronic back pain 331032 002 G89.29 Health Concerns Section Related Observation LastModified by Organization Detai ls LastModified Time None Recorded Concern Status LastModified by Organization Details LastModified Time None Recorded Advance Directives Directive None Recorded Payers Insurance Date Sequence Insurance Name Policy Number Policy Freeman Covered Member ID Freeman Member ID Guarantor Name 03/26/2018 1 [place]MEDICARE REPLACEMENT HMO) [id number] Carol Ann Santos Sonia [id number] Carol Ann F Sonia 08/17/2017 1 [place] Carol Ann F Sonia [id number] Carol Ann Santos Sonia 03/26/2018 [employer] - MEDICARE [place] - [facility] (MEDICARE) Carol Ann F Sonia [id number] Carol Ann Santos Sonia Notes Date Note Type Note Provider Name and Address Organization Details Recorded Time 8 text/htm l Care Management - HyperlipidemiaReported bypatient.Prognosis:expected outcome: improve; prognosis: guarded Self Care:recent hospitalization/ER visit? no; using an PHILLIP inhibitor Control:improving Complications:no coronary artery disease; no heart attack; no cardiovascular disease; no pancreatitis; no strokeCare Management - HypertensionReported bypatient.Prognosis:expected outcome: improve; prognosis: good Self Care:using an PHILLIP inhibitor; noted increased hctz and now muscle cramps Severity:symptoms are improving; does not interfere with daily activities Associated Symptoms:no dizziness; no lightheadedness; no chest pain; no shortness of breath; no palpitations; no blurred vision; no confusion; no headaches; no fatigue;calf muscle crampsDiabetes F/UReported bypatient.Labs:last A1C result: 7.2 Context:normal range of home blood sugars (in the low 100s); seeing eye doctor regularly; not missing doses of medications; no side effects from medications Associated Symptoms:no weight gain; no weight loss; no dizziness; no sweats; no headaches; no confusion; no increased thirst; no increased appetite; no increased urinationMusculoskeletal PainReported bypatient.Location:chonic joint and back pain--braces off legs today but usually worn Quality:varies Severity:same Duration:present for >12 months Timing:chronic with intermittent worsening Context:prior back problems; used medication for back pain; had evaluations by back specialist Alleviating factors:rest; relieved by changing position Aggravating factors:movement/positioning ; bending over; twisting Associated Symptoms:no fever;weak limbs;numbness of the legs/feet ADL (Activities of Daily Living)improve with medication inr check. Has been vomiting. SHUBHAM Ayala - [facility] 10/04/2017 15:49:26 8 text/htm l Care Management - HyperlipidemiaReported bypatient.Prognosis:expected outcome: improve; prognosis: guarded Self Care:recent hospitalization/ER visit? no; using an PHILLIP inhibitor Control:improving Complications:no coronary artery disease; no heart attack; no cardiovascular disease; no pancreatitis; no strokeCare Management - HypertensionReported bypatient.Prognosis:expected outcome: improve; prognosis: good Self Care:using an PHILLIP inhibitor; noted increased hctz and now muscle cramps Severity:symptoms are improving; does not interfere with daily activities Associated Symptoms:no dizziness; no lightheadedness; no chest pain; no shortness of breath; no palpitations; no blurred vision; no confusion; no headaches; no fatigue;calf muscle crampsDiabetes F/UReported bypatient.Labs:last A1C result: 7.2 Context:normal range of home blood sugars (in the low 100s); seeing eye doctor regularly; not missing doses of medications; no side effects from medications Associated Symptoms:no weight gain; no weight loss; no dizziness; no sweats; no headaches; no confusion; no increased thirst; no increased appetite; no increased urinationMusculoskeletal PainReported bypatient.Location:chonic joint and back pain--braces off legs today but usually worn Quality:varies Severity:same Duration:present for >12 months Timing:chronic with intermittent worsening Context:prior back problems; used medication for back pain; had evaluations by back specialist Alleviating factors:rest; relieved by changing position Aggravating factors:movement/positioning ; bending over; twisting Associated Symptoms:no fever;weak limbs;numbness of the legs/feet ADL (Activities of Daily Living)improve with medication inr check. Depression has increased. Wants to discuss other options. SHUBHAM Ayala [facility] 11/01/2017 14:51:18 8 text/htm l Care Management - HypertensionReported bypatient.Prognosis:expected outcome: improve; prognosis: guarded Self Care:using an PHILLIP inhibitor;under emotional stress; caring for mom and sister Severity:symptoms are worsening Associated Symptoms:no dizziness; no lightheadedness; no chest pain; no shortness of breath; no palpitations; no calf muscle cramps; no blurred vision; no confusion; no headaches; no fatigueMusculoskeletal PainReported bypatient.Location:chronic joint and back pain Quality:varies Severity:same Duration:present for >12 months Context:prior back problems; used medication for back pain Alleviating factors:rest; relieved by changing position Aggravating factors:movement/positioning ; bending over; twisting Associated Symptoms:no fever;weak limbs;numbness of the legs/feet; wears braces ADL (Activities of Daily Living)improve with medication PE history Anisha rao [facility] 01/14/2018 17:39:13 8 text/htm l inr check. SHUBHAM Ayala [facility] 01/14/2018 10:36:19 8 text/htm l Care Management - HypertensionReported bypatient.Prognosis:expected outcome: improve; prognosis: guarded Self Care:under emotional stressDiabetes F/UReported bypatient.Labs:last A1C result: 7.9 Context:not missing doses of medications; no side effects from medications Associated Symptoms:no weight gain; no dizziness; no sweats; no headaches; no confusion; no increased thirst; no increased appetite; no increased urination; no blurred vision;weight loss (19 lbs)Musculoskeletal PainReported bypatient.Location:chronic joint and back pain Quality:varies Severity:same Duration:present for >12 months Timing:chronic with intermittent worseniing Context:prior back problems; used medication for back pain; joint pain chronic Alleviating factors:rest; relieved by changing position Aggravating factors:movement/positioning ; bending over; twisting Associated Symptoms:no fever; no weak limbs; on incontinence; peripheral neuropathy ADL (Activities of Daily Living)improve with medication hx PE with warfarin therapy Anisha Barrios null, [place] - [facility] 02/25/2018 11:33:02 OBGyn Episode No OBEpisode recorded.
--- OUTSIDE RECORDS SUMMARY | 2024-12-25 11:06 | XMS_ITS | Clinical Summary ---
Author Organization [facility] Address [address] [place] [address] Care Team Providers Care Print Manager Name Role Phone Javier Nguyen MD Primary Care Provider [phone] Source Comments This information has been disclosed to you from confidential records protectedfrom disclosure by state law. You shall make no further disclosure of thisinformation without the specific, written, and informed release of theindividual to whom it pertains, or as otherwise permitted by law. A generalauthorization for the release of medical or other information is not sufficientfor the purposes of therelease of HIV test results or diagnoses. [id number] Allergies Active Allergy Reactions Criticality Noted Date Comments Penicillins 09/07/2023 Social History Tobacco Use Types Packs/Day Years Used Date Smoking Tobacco: Never Assessed Comments Unknown Sex and Gender Information Value Date Recorded Sex Assigned at Not on file Legal Sex Female 4:16 PM EST Gender Identity Not on file Sexual Orientation Not on file Last Filed Vital Signs Vital Sign Reading Time Taken Comments Blood Pressure 123/75 09/07/2023 5:48 PM EDT Pulse 95 09/07/2023 5:48 PM EDT Temperature 36.6 C (97.9 F) 09/07/2023 3:55 PM EDT Respiratory Rate 19 09/07/2023 5:48 PM EDT Oxygen Saturation 96% 09/07/2023 5:48 PM EDT Inhaled Oxygen Concentration 96% 09/07/2023 5 :48 PM EDT Weight - - Height - - Body Mass Index - - Plan of Treatment Health Maintenance Due Date Last Done Comments Abnormal Colonoscopy Follow Up 1968 Alcohol Misuse Screening 1986 Depression Screening 1986 HIV Screening 1986 Immunization: Hepatitis B (1 of 3 - 19+ 3-dose series) 1987 Cervical Cancer Screening/Pa p Smear (MyChart) 1998 Mammogram (MyChart) 2008 Cologuard (FIT-DNA) 2013 Colonoscopy 2013 Colorectal Cancer Screening (MyChart) 2013 Stool Testing (gFOBT) 2013 Immunization: Zoster (1 of 2) 2018 Immunization: Pneumococcal ( 3 of 3 - PCV20 or PCV21) 03/04/2021 03/04/2016, 04/25/2014 Immunization: DTaP/Tdap/Td ( 2 - Td or Tdap) 11/04/2022 11/04/2012 Immunization: COVID-19 ( season) 2024 03/05/2021, 02/05/2021 Immunization: Influenza (MyC benitez) (#1) 2025 04/21/2023, 04/21/2022, 05/01/2021, Additional history exists Hepatitis C Screening (MyChart) Completed Procedures Procedure Name Priority Date/Time Associated Diagnosis Comments ED HCV AB REFLEX TO HCV QUANT Routine 09/07/2023 4:06 PM EDT from Last 3 Months or Most Recently Relevant to Health Maintenance Results * ED HCV Ab Reflex To HCV Quant (09/07/2023 4:06 PM EDT) HCV Ab Nonreactive Nonreactive 09/07/2023 6:34 PM EDT [facility] Comment:Health Department no tified in accordance with reportable infectious disease guidelines. HCVAB Number 0.13 0.00 - 0.79 S/CO 09/07/2023 6:34 PM EDT [facility] Serum 09/07/2023 4:06 PM EDT 09/07/2023 5:13 PM EDT us Mitchel Oswald MD LAB BLOOD ORDERABLES Final Resul t [facility] [address] [place] [id number], [facility] from Last 3 Months or Most Recently Relevant to Health Maintenance Insurance BLUE MEDICARE ADVANTAGE Care Teams Print Manager Relationship Specialty Start Date End Date Javier Nguyen MD [address] [place] [address] PCP - General Family Medicine 09/07/23
--- OUTSIDE RECORDS SUMMARY | 2024-12-25 11:06 | XMS_ITS | Data Portability ---
Author Organization [facility] Address [address] [place] [address] Care Team Providers Care Budget Technician Name Role Phone ROHAN WOODALL Primary Care Provider ROHAN WOODALL Referring Provider GREGORIO ALTAMIRANO Monument Erector [phone] Assessment No assessment recorded. Plan of Treatment Reminders Order Date Submit Date Provider Last Modified By Organization Details Last Modified Time Details Appointments None recorded. Lab None recorded. Referral None recorded. Procedures None recorded. Surgeries None recorded. Imaging XR, shoulder 2022 023 [email or web address] 0 [facility], [address] [place] [address] [place], [address], 3 13:40:35 XR, shoulder 2022 023 [email or web address] [facility], [address] [place] [address] [place], [address], 3 09:58:25 XR, shoulder 2022 023 [email or web address] [facility], [address] [place] [address] [place], [address], 3 16:22:02 Medication Orders None recorded. Patient TargetsNo targets recorded. Patient InstructionsNo instructions recorded. Reason for Referral None Reported. Results Created Date Observation Date Name Description Value Unit Range Abnormal Flag Note LastModifiedBy Organization Detail LastModifiedTime 10/14/19 XR, shoul servando No observ ation record ed. TOMMY Reynoso [address] [place], [address], 10/13/2022 09:38:52 11/11/19 XR, shoul servando No observ ation record ed. TOMMY Reynoso [address] [place], [address], 11/10/2022 09:35:10 12/18/19 XR, shoul servando No observ ation record ed. TOMMY Reynoso [address] [place], [address], 12/17/2022 13:22:30 Result Notes None recorded. Procedures Surgical History Date Name Laterality Status Provider Name and Address Organization Details Recorded Time 0 completed Sena JALLOH - [facility] [place] 10/13/2022 09:20:31 4 Curtain Stitcher Surgery completed Sena JALLOH - [facility] [place] 10/13/2022 09:20:50 4 Other completed Sena JALLOH - [facility] [place] 10/13/2022 09:20:50 Imaging Results None recorded. Procedure Notes None recorded. Medical Equipment None Reported. Allergies Allergen ID Allergen Name Allergen Category Reaction Reaction Severity Criticality Documentation Date Start Date Code Code System Note Provider Name and Address Organization Details Recorded Time 83483 Product containin g penicilli n (product) medicatio n Not available Not available Not available 10/13/2022 71140 8001 SNOMED Sena Stark maira, [place] - [facility] [place] 3 09:24:21 Medications Name Sig Start Date [...] Available Not Available No t Available Soliqua 100 unit-33 mcg/mL subcutaneou s insulin pen INJECT 50 UNITS SUBCUTANE OUSLY ONCE DAILY FOR DIABETES active Not Available Not Available No t Available Soliqua 10033 10/13 completed Not Available Not Available Not Available Vitals Date Recorded Body height Body mass index (BMI) Body weight Body temperature Heart rate Respiratory rate Systolic And Diastolic Provider Name and Address Organization Details Last Updated DateTime 3 175.26 cm 46.1 kg/m2 181830. 82 g 98 [degF] 93 /min 18 /min 124/79 mm[Hg] Sena Stark [place] - [facility] [place] 3 09:23:47 Date Recorded Body height Body temperature Heart rate Respiratory rate Systolic And Diastolic Provider Name and Address Organization Details Last Updated DateTime 3 175.26 cm 97.8 [degF] 98 /min 18 /min 138/88 mm[Hg] Leah Arriola [place] - [facility] [place] 3 09:27:10 Date Recorded Body height Body temperature Heart rate Respiratory rate Systolic And Diastolic Provider Name and Address Organization Details Last Updated DateTime 3 175.26 cm 97.9 [degF] 70 /min 18 /min 158/75 mm[Hg] [facility] Sales [facility] [place] 3 13:09:18 Social History Question Answer Notes LastModified by Organizat ion Details LastModified Time Tobacco Smoking Status Former Smoker Sena [facility] [place], [place] - [facility] [place] 10/13/2022 09:20:46 What Was The Date Of Your Most Recent Tobacco Screening? 10/13/2022 [email or web address] Information not available 10/13/2022 Are You Passively Exposed To Smoke? No Information not available 10/13/2022 How Much Tobacco Do You Smoke? No [email or web address] Information not available 10/13/2022 Sex: Female Functional Status Question Answer Note LastModified by Organizat ion Details LastModified Time What is your level of alcohol consumption? None [email or web address] Information not available 10/13/2022 Do you or have you ever used smokeless tobacco? [id number] [email or web address] Information not available 10/13/2022 Mental Status None [...] Medical History Condition Response Clotting Disorder Y Obesity Y Arthritis Y Diabetes Y Back Problems Y Hypertension Y Gynecological History Statement/Question Response 06/30/2019 Sexually Active? N Obstetrics History GPAL:G 0 P 0 0 0 0 Immunizations Vaccine Type Date Status Note Provider Nam e and Address Organization Details Recorded Time Influenza, split virus, quadrivalent, preservative 8 completed SHUBHAM Taylor - [facility] [place] 11/09/2022 08:25:19 COVID-19, mRNA, LNP-S, PF, 100 mcg/0.5mL dose or 50 mcg/0.25mL dose 1 completed SHUBHAM Taylor - [facility] [place] 11/09/2022 08:25:19 COVID-19, mRNA, LNP-S, PF, 100 mcg/0.5mL dose or 50 mcg/0.25mL dose 1 completed Snea Stark null, [place] - [facility] [place] [facility] [place] 11/09/2022 08:25:19 Tdap 3 completed Sena Stark null, [place] - [facility] [place] [facility] [place] 11/09/2022 08:25:19 Influenza, split virus, trivalent, PF 2 completed Sena Stark null, [place] - [facility] [place] [facility] [place] 11/09/2022 08:25:19 Influenza, split virus, quadrivalent, PF 6 completed Sena Stark [place], [place] - [facility] [place] [facility] [place] 11/09/2022 08:25:19 Influenza, split virus, quadrivalent, PF 0 completed Sena Stark null, [place] - [facility] [place] [facility] [place] 11/09/2022 08:25:19 Influenza, split virus, quadrivalent, PF 2 completed Sena Stark null, [place] - [facility] [place] [facility] [place] 11/09/2022 08:25:19 Influenza, split virus, quadrivalent, PF 1 completed Sena Stark null, [place] - [facility] [place] [facility] [place] 11/09/2022 08:25:19 Past Encounters Encounter ID Performer Location Encounter Start Date Encounter Closed Date Diagnosis/Indication Diagnosis SNOMED-CT Code Diagnosis ICD10 Code Diagnosis Note [id number] MD SONIYA Walker [address] [address] 10/13/2022 08:37:06 10/13/2022 09:59:20 Closed fracture of proximal right humerus 9322251405 8395593 S42.201A [id number] SHYANN PULIDO [address] [address] 11/10/2022 09:20:06 11/10/2022 09:47:24 Closed fracture of proximal right humerus 5229344715 3296812 S42.201D [id number] SHYANN PULIDO [facility] [address] [address] 12/17/2022 13:01:31 12/17/2022 13:40:35 Closed fracture of proximal right humerus 8135071000 2606190 S42.201D Health Concerns Section Related Observation LastModified by Organization [place] henry LastModified Time None Recorded Concern Status LastModified by Organization Details LastModified Time None Recorded Advance Directives Directive None Recorded Payers Insurance Date Sequence Insurance Name Policy Number Policy Freeman Covered Member ID Freeman Member ID Guarantor Name 02/14/2023 1 [place]MEDICARE REPLACEMENT HMO) [id number] Carol Ann Scott [id number] Carol Ann Scott Notes Date Note Type Note Provider Name and Address Organization Details Recorded Time 10/13/2022 text/html This is a 52 year old right handed diabetic female here today for right humerus fracture. States that on 10.08.22 while in [place] she fell on her right shoulder. Went to an ER there xrays taken and sling was given. Patient is taking percocet for pain. Does have some tingling in right hand but states she had that before the injury. E5 JS Jhonny Copeland MD [address] [place] [address] Drive,[address], [place], [address], [facility] 10/14/2022 07:55:19 11/10/2022 text/html Pt is here for f/u of her rt humerus fx. She reports her pain is some better from her last visit. She still has issues with her ROM. Taking Tylenol for pain-E2SF SOFY MONCADA NP [address] [place] [address],[address], [place], [address], [place] - [facility] 11/10/2022 09:48:59 12/17/2022 text/html Patient is here for x-ray follow up of right shoulder - impacted proximal humerus fracture. She sustained the injury 10 weeks ago. (10.08.22) She states she has some pain with certain activities, otherwise she feels . She went to 3-4 PT visits. SOFY MONCADA NP [address] [place] [address] Drive,[address], [place], [address], [facility] - [facility] & [place] 12/17/2022 13:40:24 OBGyn Episode No OBEpisode recorded.
--- OUTSIDE RECORDS SUMMARY | 2024-12-25 11:06 | XMS_ITS | Clinical Summary ---
Author Organization [facility] Address [address] [place] [address] Phone Care Team Providers Care Care Tech Name Role Phone Javier Nguyen MD Primary Care Provider [phone] Allergies Active Allergy Reactions Criticality Noted Date Comments Penicillins Rash 12/28/2015 Medications FLUoxetine (PROZAC) 40 mg Oral Capsule Take 40 mg by mouth daily. Active buPROPion (WELLBUTRIN SR) 100 mg Oral Tablet Sustained Release Take 100 mg by mouth daily. Active traZODone (DESYREL) 150 mg Oral Tablet Take 150 mg by mouth nightly. Active warfarin (COUMADIN) 7.5 mg Oral Tablet Take by mouth every evening. Takes 10 mg 4 days a week and 7.5 mg 3 days a week Active LISINOPRIL ORAL Take 40 mg by mouth daily. Active zolpidem (AMBIEN) 10 mg Oral Tablet Take by mouth nightly. Active metFORMIN (GLUCOPHAGE) 1,000 mg Oral Tablet Take 1,000 mg by mouth 2 times daily. Active liraglutide (VICTOZA) 0.6 mg/0.1 mL (18 mg/3 mL) SubQ Pen Injector Subcutaneous (Inject under the skin) 1.8 mg daily. Active ondansetron (ZOFRAN-ODT) 4 mg Oral Tablet, Rapid Dissolve Take 1 Tab by mouth every 8 hours as needed for Nausea. 10 Tab 2 8 Active tiZANidine (ZANAFLEX) 4 mg Oral Tablet Take by mouth 3 times daily as needed for Muscle spasms. Active venlafaxine (EFFEXOR) 75 mg Oral Tablet Take by mouth daily. Active enoxaparin (LOVENOX) 100 mg/mL SubQ Syringe Subcutaneous (Inject under the skin) 100 mg every 12 hours. Active insulin aspart U-100 (NOVOLOG) 100 unit/mL SubQ Solution Subcutaneous (Inject under the skin) 3 times daily (before meals). Sliding scale with meals Active tamsulosin (FLOMAX) 0.4 mg Oral Capsule, Sust. Release 24 hr Take 1 Cap by mouth nightly. May stop taking 1 week after removal of ureteral stent. 30 Cap 8 Active oxybutynin (DITROPAN) 5 mg Oral Tablet Take 1 Tab by mouth 3 times daily as needed. Stop taking once stent removed. 40 Tab 8 Active Active Problems Problem Noted Date Diagnosed Date SOB (shortness of breath) 06/18/2011 Obesity 06/18/2011 Pulmonary embolism 06/18/2011 Surgical History Surgery Date Site/Laterality Comments HYSTERECTOMY VENA CAVA FILTER PLACEMENT GASTRIC BYPASS SURGERY 06/21/2003 - 06/20/2004 URETEROSCOPY 10/13/2017 Right CYSTOSCOPY RIGHT URETEROSCOPY LASER LITHOTRIPSY RIGHT STENT PLACEMENT; Surgeon: Renée Forbes MD; Location: [facility] MAIN OR; Service: Urology Medical devices from this surgery are in the Medical Devices section. Medical History Medical History Date Comments SOB (shortness of breath) 06/18/2011 Obesity 06/18/2011 PE (pulmonary embolism) 06/18/2011 Hypertension Kidney stones Diabetes mellitus (HCC) Cancer (HCC) uterine Pulmonary embolism (HCC) Depression Cardiac dysrhythmia had afib on ce and was shocked back into rhythm Clotting disorder too much fact or 8 Arthritis feet, hands, chica k, knees,ankles Osteoarthritis knees Family History Medical History Relation Name Comments Anesth Problems Neg Hx Social History Tobacco Use Types Packs/Day Years Used Date Smoking Tobacco: Former Cigarettes 1.5 15 0 10/08/1984 - 10/09/1999 Smokeless Tobacco: Never Alcohol Use Standard Drinks/Week Comments No 0 (1 standard drink = 0.6 oz pur e alcohol) Comments No Sex and Gender Information Value Date Recorded Sex Assigned at Not on file Legal Sex Female 4:15 AM EDT Gender Identity Not on file Sexual Orientation Not on file Obstetrics History Last Filed Vital Signs Vital Sign Reading Time Taken Comments Blood Pressure 132/76 10/26/2017 2:13 PM EDT Pulse 89 10/13/2017 11:57 AM EDT Temperature 36.9 C (98.5 F) 10/13/2017 11:16 AM EDT Respiratory Rate 20 10/13/2017 11:57 AM EDT Oxygen Saturation 95% 10/13/2017 11:57 AM EDT Inhaled Oxygen Concentration - - Weight 147 kg (324 lb) 10/26/2017 2:13 PM EDT Height 175.3 cm (5' 9 ) 10/13/2017 7:43 AM EDT Body Mass Index 47.85 10/13/2017 7:43 AM EDT Plan of Treatment Health Maintenance Due Date Last Done Comments Wellness Exam Medicare 1971 Hepatitis B Vaccine (1 of 3 - 19+ 3-dose series) 1987 Cervical Cancer Screening 1989 Pap Smear 1989 HPV/Pap Cotest 1998 Cologuard 2013 Colon Cancer Screening 2013 Colonoscopy 2013 FIT 2013 Sigmoidoscopy 2013 Virtual Colonography 2013 Pneumococcal Vaccine 50+ (1 of 1 - PCV) 2018 Zoster (1 of 2) 2018 Breast Cancer Screening 07/16/2019 07/16/19 18, 07/05/2013, 06/19/2011 DTaP/TDaP/Td (2 - Td or Tdap) 11/04/2022 11/04/2012 COVID-19 Vaccine (3 - season) 2024 03/05/2021, 02/05/2021 Influenza Vaccine (#1) 2025 0, 07/12/2017, 04/01/2016, Additional history exists Meningococcal B Vaccine Aged Out No l onger eligible based on patient's age to complete this topic Medical Devices Implanted Type Area Fuels Engineer Device Identifier Shelf Expiration Date Model / Serial / Lot Stent Ureteral Contour 6 X 26 #180-223 - [id number] Implanted:Qty: 1 on 10/13/2017 by Renée Forbes MD at [facility] Stent Right: Ureter [employer]:MICROVASIVE: UROLOGY 07/26/2020 180-083 / / [id number] Ivc Filter Procedures Procedure Name Priority Date/Time Associated Diagnosis Comments MM MAMMO DIGITAL SCREENING W CAD BILAT Routine 07/16/2017 1:40 PM EST Encounter for screening mammogram for malignant neoplasm of breast from Last 3 Months or Most Recently Relevant to Health Maintenance Results * MM MAMMO DIGITAL SCREENING W CAD BILAT (07/16/2017 1:40 PM EST) Anatomical Region Laterality Modality Breast Bilateral Mammography 07/19/2017 9:38 AM EST Impressions 07/20/2017 2:09 PM EST : Negative ([id number]) ~ RECOMMENDATION: Routine screening mammogram in 1 year. ~ DISCLAIMER * Any patient with a palpable abnormality, unexplained by breast imaging, should be managed on clinical basis by the attending physician. * Breast imaging has a false negative rate of 15%. * The patient was notified by mail of the results of this examination. *The patient's information was entered into a reminder system with a target due date for the next mammogram. The mammogram was reviewed by a Radiologist and CAD. Narrative 07/20/2017 2:09 PM EST Procedure:MM MAMMO DIGITAL SCREENING W CAD BILAT ~ Reason for exam: screening, asymptomatic. ~ MM MAMMO DIG SCREEN CAD BILAT Bilateral CC and MLO view(s) were taken. Technologist: Eva Arguelles, RT Prior study comparison: July 05, 2013, bilateral MM MAMMO DIG SCREEN CAD BILAT performed at [facility]. There are scattered fibroglandular densities. Compared with prior studies, the most recent being 07-05-13. ~ Javier Nguyen MD IMG MAMMOGRAPHY ORDERABLES Final Result from Last 3 Months or Most Recently Relevant to Health Maintenance Insurance ASHLIE GONZALEZ MR ASHLIE LISA MR * Guarantor: Rosalva Scottissa Tom Account Type Relation to Patient Date of Phone [place]illing Address [place] Personal Family Self Care Teams Care Tech Relationship Specialty Start Date End Date Javier Nguyen MD PCP - General 07/16/09
== END 2024-12-20 23:59 | disposition home or self-care (01) ==
LOC: LAB.DROPOF 12-25 10:42
PROVIDERS: PCP Family Medicine; Visit Provider Family Medicine
DX: Z51.81 Encounter for therapeutic drug level monitoring (principal); Z95.828 Presence of other vascular implants and grafts; Z79.01 Long term (current) use of anticoagulants
CPT/HCPCS: 85610

== ENCOUNTER 2025-01-22 07:58 | Outpatient (CLI) | payer MEDICARE, SELFPAY ==
[2025-01-22 15:45] LABS: INR 1.71 (0.9-1.1); Prothrombin Time 18.2 seconds (10.1-12.5)
--- OUTSIDE RECORDS SUMMARY | 2025-01-24 08:03 | XMS_ITS | Clinical Summary ---
Author Organization [facility] Address [address] [place] [address] Care Team Providers Care Apartment Maintenance Supervisor Name Role Phone Javier Nguyen MD Primary Care Provider [phone] Source Comments This information has been disclosed [...] therelease of HIV test results or diagnoses. [id number] Allergies Active Allergy Reactions Criticality Noted [...] Ab Nonreactive Nonreactive 09/07/2023 6:34 PM EDT [facility] Comment:Health Department no tified in accordance with reportable infectious disease guidelines. HCVAB Number 0.13 0.00 - 0.79 S/CO 09/07/2023 6:34 PM EDT [facility] Serum 09/07/2023 4:06 PM EDT 09/07/2023 5:13 PM EDT us Mitchel Oswald MD LAB BLOOD ORDERABLES Final Resul t [facility] [address] [place] [id number], [facility] from Last 3 Months or Most Recently Relevant to Health Maintenance Insurance BLUE MEDICARE ADVANTAGE Care Teams Apartment Maintenance Supervisor Relationship Specialty Start Date End Date Javier Nguyen MD [address] [place] [address] PCP - General Family Medicine 09/07/23
--- OUTSIDE RECORDS SUMMARY | 2025-01-24 08:03 | XMS_ITS | Clinical Summary ---
Author Organization [facility] Address [address] [place] [address] Care Team Providers Care Operations Clerk Name Role Phone Unavailable Primary Care Provider Unavailabl e Social History Tobacco Use Types Packs/Day Years Used Date Smoking Tobacco: Never Assessed Comments Unknown Sex and Gender Information Value Date Recorded Sex Assigned at Not on file Legal Sex Female 2:58 PM EST Gender Identity Not on file Sexual Orientation Not on file Plan of Treatment Health Maintenance Due Date Last Done Comments HEPATITIS C VIRUS SCREENING 1968 TETANUS 1968 HIV SCREENING DISCUSSION 1983 HEP B VACCINE (1 of 3 - 19+ 3-dose series) 1987 TDAP (ADULT) 1987 CERVICAL CANCER SCREENING DISCUSSION 1989 LIPID SCREENING 2008 MAMMOGRAM SCREENING DISCUSSION 2008 COLORECTAL CANCER SCREENING DISCUSSION 2013 PNEUMOCOCCAL VACCINE SERIES (1 of 1 - PCV) 2018 ZOSTER (SHINGLES) VACCINE (1 of 2) 2018 COVID-19 VACCINE (1 - 2023- season) 2024 INFLUENZA VACCINE (#1) 2025
--- OUTSIDE RECORDS SUMMARY | 2025-01-24 08:03 | XMS_ITS | Clinical Summary ---
Author Organization [facility] Address [address] [place] [address] Phone Care Team Providers Care Sales Performance Manager Name Role Phone Javier Nguyen MD Primary Care Provider [phone] Allergies Active Allergy Reactions Criticality Noted Date [...] STENT PLACEMENT; Surgeon: Renée Forbes MD; Location: [facility] MAIN OR; Service: Urology Medical devices from [...] this topic Medical Devices Implanted Type Area Paint Mixer Device Identifier Shelf Expiration Date Model / Serial / Lot Stent Ureteral Contour 6 X 26 #[id number] - [id number] Implanted:Qty: 1 on 10/13/2017 by Renée Forbes MD at [facility] Stent Right: Ureter [employer]:MICROVASIVE: UROLOGY 07/26/2020 [id number] / / [id number] Ivc Filter Procedures Procedure Name Priority Date/Time [...] Impressions 07/20/2017 2:09 PM EST : Negative ([id number]) ~ RECOMMENDATION: Routine screening mammogram in 1 [...] MAMMO DIG SCREEN CAD BILAT [facility]. There are scattered fibroglandular densities. Compared with prior studies, the most recent being 07-05-13. ~ Javier Nguyen MD IMG MAMMOGRAPHY ORDERABLES Final Result from Last 3 Months or Most Recently Relevant to Health Maintenance Insurance ASHLIE GONZALEZ MR ASHLIE LISA MR * Guarantor: Rosalva Scottissa Tom Account Type Relation to Patient Date of Phone Billing Address [place] Personal Family Self Care Teams Sales Performance Manager Relationship Specialty Start Date End Date Javier Nguyen MD PCP - General 07/16/09
--- OUTSIDE RECORDS SUMMARY | 2025-01-24 08:03 | XMS_ITS | Encounter Summary ---
Author Organization [facility] Address [address] [place] [address] Care Team Providers Care Senior Compliance Analyst Name Role Phone Unavailable Primary Care Provider Unavailabl e Encounter Details Date Type Department Care Team (Late st Contact Info) Description 09/28/2012 Conversion Encounter [facility] HISTORICAL CONV [address] [place] [address] Interface, See Report Social History Tobacco Use Types Packs/Day Years Used Date Smoking Tobacco: Never Assessed Comments Unknown Sex and Gender Information Value Date Recorded Sex Assigned at Not on file Legal Sex Female 12:32 PM EDT Gender Identity Not on file Sexual Orientation Not on file documented as of this encounter Progress Notes * Interface, See Report - 09/28/2012 12:00 AM EDT [facility] [facility] [address] [place], [place] [id number] Patient: CAROL ANN SCOTT MR #: : [id number] Date of Visit: 09/28/2012 Attending Physician: Danae Rush Dictated By: DANAE RUSH Referring Physician: Diagnosis: ENDOMETRIAL CANCER; ANNUAL Allergies: PCN History of present illness: H/O ENDO CA; ANNUAL . PT. REPORTS NO AUB SINCE LAST VISIT. 42 yo femalehere for annual exam with a history of medically controlled endometrial cancer us ing megace. She has had no vaginal bleeding since her last visit here. She has a isaiah filter and is on coumadinfor history of multiple prior pulmonary emboli. She has lost 8 more pounds since being here. Her mammogram is due now, and she requests a refill on her megace. Present family and/or social history: Family history: Father - Heart Dz/HTN/Diabetes. Mother - Epilepsy/Narcolepsy/Carbajal Dz/Lupus. Bothsiblings - Diabtes/HTN Social history: Tobacco Y N PPD ETOH Y N # Drinks Marital Status SINGLE Occupation Past medical history: Medical: ENDOMETRIAL CANCER; HYPERTENSION; DIABETES; RHEUMATOID ARTHRIIS Surgical: BARIATRIC SURGERY Health maintenance: Mammogram: Colonoscopy: Pap smear: 10/06/11 Tumor Marker: CT Scan: BMD: Review of systems: Constitutional: No change in weight, no excessive fatigue Psychiatric: No history of anxiety, depression, bipolar disorder, or insomnia Eyes: Vision unchanged Ears, Nose, Mouth, Throat: Hearing n ormal, no swallowing difficulties, no sore throat Endocrine: +DIABETES. No history of thyroid disease, heat/cold intolerance Lymphatic: No enlarged lymph nodes Respiratory: No shortness of breath, cough, asthma, wheezing Cardiovascular: +HTN. No angina, orthopnea, edema, murmur, hyperlipidemia Gastrointestinal: No constipation or diarrhea, no reflux, nausea, or vomiting Genitourinary: No dysuria, hematuria, urgency, or frequency Neurologic: No numbness, weakness, syncope, seizures, or headaches Musculoskeletal: +R.ARTHRITIS. No muscle weakness, or joint pain Integumentary: No new skin lesions Gynecologic: +H/O ENDO CA. No abnormal bleeding, vaginal discharge, pelvic pain, of h/o abnml pap smears LMP: P: 0 Vag Deliveries: 0 C-sec: 0 Misc: 0 Hematologic: No history of anemia, easy bruising, or blood clots Medications: See documented medication list. Physical exam: Constitutional: Weight [address] [place] [address] Pulse Temp Neurological/Psychiatric: HEENT: Neck: Respiratory: Cardiovascular: Breasts: Gastrointestinal: , obese Lymphatic: Extremities: Skin: Gynecologic: External Genitalia: Vagina: Cervix: , pap obtained Uterus: , exam limited secondary to habitus Ovaries: Parametria: Smooth. Rectovaginal: Hemoccult: Procedure note: Assessment: Annual Well Woman Exam Medically controlled endometrial cancer Plan: Megace 40 mg PO Qday # 30 refill x 5 Order given for mammogram to have done at [facility] Approved by: , cc: documented in this encounter Plan of Treatment Not on file documented as of this encounter Visit Diagnoses Not on filedocumented in this encounter
--- OUTSIDE RECORDS SUMMARY | 2025-01-24 08:03 | XMS_ITS | Clinical Summary ---
Author Organization [facility] Address [address] [place] [address] Care Team Providers Care Deputy Grand Jury Name Role Phone Unavailable Primary Care Provider Unavailabl e Source Comments [facility] is fully rolled out with thefollowing exceptions:General Clinical Research [facility] Social History Tobacco Use Types Packs/Day [...] to Patient Date of Phone Billing Address [facility] Reference Lab Self 1970 [address] [place] [address] MEDICARE [place]
--- OUTSIDE RECORDS SUMMARY | 2025-01-24 08:03 | XMS_ITS | Clinical Summary ---
Author Organization [facility]3] Address [address] [place] [address] Care Team Providers Care Gluing Crew Leader Name Role Phone Javier Nguyen MD Primary Care Provider [phone] Lissy Batista MD Unavailable [phone] Allergies Active Allergy Reactions Criticality Noted Date Comments Penicillins 10/20/2013 As a child Medications metFORMIN (GLUCOPHAGE) 1,000 mg PO tablet Take 1,000 mg by mouth 2 times daily (with meals). Active Insulin Detemir (LEVEMIR) 100 unit/mL (3 mL) SC Flexpen 70 Units by Subcutaneous route nightly bedtime. Active insulin lispro (HUMALOG KWIKPEN) 100 unit/mL SC Kwikpen INPN 60 Units by Subcutaneous route 3 times daily (with meals). Active amLODIPine (NORVASC) 10 mg PO tablet Take 10 mg by mouth daily. Active lisinopril (PRINIVIL, ZESTRIL) 40 mg PO tablet Take 40 mg by mouth daily. Active warfarin (COUMADIN) 5 mg PO tablet Take 5 mg by mouth every Wednesday. Active warfarin (COUMADIN) 5 mg PO tablet Take 5 mg by mouth every Wednesday. Active warfarin (COUMADIN) 5 mg PO tablet Take 7.5 mg by mouth every Wednesday thru Wednesday. Active enoxaparin (LOVENOX) 150 mg/mL SC injection by Subcutaneous route 2 times daily. 4 Active FLUoxetine (PROZAC) 40 mg PO capsule Take 40 mg by mouth daily. Active Hydrocodone-Akash taminophen (NORCO) 5-325 mg PO per tablet Take 1 Tab by mouth 2 times daily as needed. Active traZODone (DESYREL) 150 mg PO tablet Take 150 mg by mouth nightly bedtime. Active zolpidem (AMBIEN) 10 mg PO tablet Take 5-10 mg by mouth nightly as needed. Active LORAZEPAM (ATIVAN PO) Take by mouth as needed. Active oxyCODONE-aceta minophen (PERCOCET) 5-325 mg PO per tablet Take 1-2 Tabs by mouth every 3 hours as needed (Moderate Pain). 30 Tab 0 4 Active Active Problems Problem Noted Date Diagnosed Date Endometrial cancer 10/30/2013 Family History Medical History Relation Name Comments Heart Problems Father CABG Heart Problems Mother stents x 6 Heart Problems Paternal Uncle CABG Heart Problems Sister stent x 2 Anesthesia Complications Neg Hx Relation Name Status Comments Father Mother Paternal Uncle Sister Social History Tobacco Use Types Packs/Day Years Used Date Smoking Tobacco: Former Cigarettes Q uit: 06/21/1999 Smokeless Tobacco: Never Alcohol Use Standard Drinks/Week Comments No 0 (1 standard drink = 0.6 oz pur e alcohol) Comments No Sex and Gender Information Value Date Recorded Sex Assigned at Not on file Legal Sex Female 3:00 PM EST Gender Identity Not on file Sexual Orientation Not on file Last Filed Vital Signs Vital Sign Reading Time Taken Comments Blood Pressure 139/74 10/31/2013 3:35 PM EDT Pulse 88 10/31/2013 3:35 PM EDT Temperature 37.2 C (99 F) 10/31/2013 3:35 PM EDT Respiratory Rate 18 10/31/2013 3:35 PM EDT Oxygen Saturation 93% 10/31/2013 3:35 PM EDT Inhaled Oxygen Concentration - - Weight 151.5 kg (334 lb) 10/30/2013 6:40 AM EDT Height 175.3 cm (5' 9 ) 10/30/2013 6:40 AM EDT Body Mass Index 49.32 10/30/2013 6:40 AM EDT Plan of Treatment Not on file Insurance MEDICARE MEDICAID PENDING Advance Directives For more information, please contact: [phone] * Full Code (Latest Code Status on File) Date Activated Date Inactivated Comments 10/30/2013 5:08 PM 10/31/2013 9:54 PM Care Teams Gluing Crew Leader Relationship Specialty Start Date End Date Javier Nguyen MD PCP - General Family Medicine 10/23/13 Lissy Batista MD [address] [place] [address] Gynecologic Oncology 06/28/22
--- OUTSIDE RECORDS SUMMARY | 2025-01-24 08:03 | XMS_ITS | Clinical Summary ---
Author Organization [facility] Address [address] [place] [id number] Care Team Providers Care Psychiatric Aide Instructor Name Role Phone Unavailable Primary Care Provider Unavailabl e Social History Tobacco Use Types Packs/Day Years Used Date Smoking Tobacco: Never Assessed Abuse Screen Answer Date Recorded Unsafe at Home or Work/School Not on file Feels Threatened by Someone? Not on file 02/2023 Does Anyone Keep You from Co ntacting Others or Doint Things Outside the Home? Not on file 03/29/2023 Physical Sign of Abuse Present Not on file 1 Housing Stability Answer Date Recorded Current Living Arrangements Not on file 02/2023 Potentially Unsafe Housing Conditions Not on bill e 03/29/2023 Family and Community Support Answer Charlie e Recorded Help with Day-to-Day Activities Not on file 03/29/2023 Lonely or Isolated Not on file 03/29/2023 Employment Answer Date Recorded Do you want help finding or keeping work or a guerita b? Not on file 03/29/2023 Disabilities Answer Date Recorded Concentrating, Remembering, or Making Decisions Difficulty Not on file 03/29/2023 Doing Errands Independently Difficulty Not on fi le 03/29/2023 Education Answer Date Recorded Help with school or training? Not on file Preferred Language Not on file 03/29/2023 Comments Unknown Sex and Gender Information Value Date Recorded Sex Assigned at Not on file Legal Sex Female 12:32 PM EDT Gender Identity Not on file Sexual Orientation Not on file Plan of Treatment Health Maintenance Due Date Last Done Comments ANNUAL PHYSICAL 1970 Annual Gynecologic Pelvic and Breast Exam 1968 HEPATITIS C SCREENING 1968 TDAP/TD VACCINES (1 - Tdap) 1987 MAMMOGRAM 2008 COLOGUARD 2013 COLON CANCER SCREENING 5 YEAR SIGMOIDOSCOPY 2013 COLONOSCOPY [address] CANCER SCREENING [address] COLONOGRAPHY 2013 FECAL OCCULT BLOOD TEST 2013 FIT Testing (1 year) 2013 Pneumococcal Vaccine 50+ (1 of 1 - PCV) 2018 ZOSTER VACCINE (1 of 2) 2018 COVID-19 Vaccine (1 - 2023- season) 2024 INFLUENZA VACCINE 03/21/2025
== END 2025-01-22 23:59 | disposition home or self-care (01) ==
LOC: LAB.DROPOF 01-24 07:59
PROVIDERS: PCP Family Medicine; Visit Provider Family Medicine
DX: Z51.81 Encounter for therapeutic drug level monitoring (principal); Z79.01 Long term (current) use of anticoagulants
CPT/HCPCS: 85610

== ENCOUNTER 2025-04-09 12:32 | Outpatient (CLI) | payer MEDICARE, SELFPAY ==
[2025-04-09 16:41] LABS: Hematocrit 40.9 % (37.0-47.0); Hemoglobin 12.5 g/dL (12.2-16.2); Immature Granulocytes % 0.8 %; Mean Corpuscular HGB Conc 30.6 g/dL (31.8-35.4); Mean Corpuscular Hemoglobin 28.2 pg (27.0-31.2); Mean Corpuscular Volume 92.1 fl (81-99); Nucleated Red Blood Cells % 0 %; Platelet Count 213 K/mm3 (142-424); Red Blood Count 4.44 M/mm3 (4.20-5.40); Red Cell Distribution Width-SD 48.1 fL; White Blood Count 8.8 K/mm3 (4.8-10.8)
[2025-04-09 17:12] LABS: Albumin Level 3.7 g/dl (3.5-5.0); Chloride 101 mmol/L (98-107); Potassium 4.6 mmoL/L (3.5-5.1); Sodium 139 mmol/L (136-145)
[2025-04-09 17:14] LABS: Blood Urea Nitrogen 11 mg/dl (7-17); Creatinine,Serum 0.60 mg/dl (0.52-1.04); Estimated Glomerular Filt Rate 103 ml/min (>60); GFR (African American) 125 ML/MIN (>60)
[2025-04-09 17:15] LABS: Alanine Aminotransferase 15 U/L (12-78); Albumin/Globulin Ratio 1.2 (1.1-1.8); Alkaline Phosphatase 89 U/L (38-126); Anion Gap 9.6 mEq/L (5-15); Aspartate Amino Transferase 20 U/L (14-36); Bilirubin,Total 0.3 mg/dl (0.2-1.3); Carbon Dioxide 33 mmol/L (22.0-30.0); Cholesterol 149 mg/dl (140-200); Globulin 3.1 g/dL (1.3-3.2); Iron 89 ug/dL (37-170); Total Protein,Serum 6.8 g/dl (6.3-8.2); Triglycerides 151 mg/dl (30-150)
[2025-04-09 17:16] LABS: Calcium 8.7 mg/dl (8.4-10.2); Glucose 93 mg/dl (74-100); HDL Cholesterol 45 mg/dl (40-60)
[2025-04-09 17:26] LABS: Total Iron Binding Capacity 354 ug/dL (265-497)
[2025-04-09 18:01] LABS: Thyroid Stimulating Hormone 1.65 uIU/mL (0.465-4.68)
--- OUTSIDE RECORDS SUMMARY | 2025-04-11 12:44 | XMS_ITS | Continuity of Care Document ---
[facility] Organization [facility] Address [address] [facility] [place] [address] Care Team Providers Care Hoop Flaring Machine Operator Helper Name Role Phone ROHAN WOODALL Primary Care Provider ROHAN WOODALL Referring Provider GREGORIO ALTAMIRANO Resource Center Teacher ROHAN WOODALL Primary Care Provider Assessment No assessment recorded. Plan of Treatment Reminders Order Date Submit Date Provider Last Modified By Organization Details Last Modified Time Details Appointments INJ ONLY 10 08:45AM SOFY MONCADA NP Not available Not available Not available INJ ONLY 15 08:45AM SOFY MONCADA NP Not available Not available Not available ORT EST 15 09:15AM Jhonny Copeland MD Not available Not available Not available Lab None record ed. Referral None record ed. Procedures None record ed. Surgeries None record ed. Imaging None record ed. Medication Orders None record ed. Patient TargetsNo targets recorded. Patient InstructionsNo instructions recorded. Reason for Referral None Reported. Results Created Date Observation Date Name Description Value Unit Range Abnormal Flag Note LastModifiedBy Organization Detail LastModifiedTime 03/22/20 25 XR, knee No observ ation record ed. TOMMY Reynoso [facility] [address] [facility] [address] [place], [address], 03/22/2025 14:56:37 04/04/20 25 XR, hand No observ ation record ed. TOMMY Reynoso [facility] [address] [facility] [address] [facility] , [place], [address], 04/04/2025 08:59:08 Result Notes None recorded. Procedures Surgical History Date Name Laterality Status Provider Name and Address Organization Details Recorded Time 4 Date of Last Colonoscopy completed Leah Guaman [facility] & [place] 04/04/2025 08:48:49 0 completed Sena Guaman [facility] & [place] 10/13/2022 09:20:31 4 [employer] Manager Surgery completed Sena Guaman [facility] & [place] 10/13/2022 09:20:50 4 Other completed Sena Guaman [facility] & [place] 10/13/2022 09:20:50 Imaging Results None recorded. Procedure Notes None recorded. Medical Equipment None Reported. Allergies Allergen ID Allergen Name Allergen Category Reaction Reaction Severity Criticality Documentation Date Start Date Code Code System Note Provider Name and Address Organization Details Recorded Time 88954 Product containin g penicilli n (product) medicatio n Not available Not available Not available 10/13/2022 53121 8001 SNOMED Sena rao, [facility] [place] 3 09:24:21 Medications Name Sig Start Date Stop Date Status Note LastModified by Organization Details LastModified Time losartan 50 mg tablet TAKE 1 TABLET BY MOUTH ONCE DAILY active Not Available Not Available No t Available fluoxetine 40 mg capsule TAKE 1 CAPSULE BY MOUTH ONCE DAILY 11/10 completed Not Available Not Available Not Available fluconazole 100 mg tablet TAKE 1 TABLET BY MOUTH ONCE DAILY active Not Available Not Available No t Available atorvastati n 20 mg tablet TAKE 1 TABLET BY MOUTH ONCE DAILY active Not Available Not Available No t Available clindamycin HCl 300 mg capsule TAKE 1 CAPSULE BY MOUTH THREE TIMES DAILY FOR 10 DAYS 10/13 completed Not Available Not Available Not Available azithromyci n 250 mg tablet TAKE 2 TABLETS BY MOUTH ON DAY 1, AND THEN TAKE 1 TABLET BY MOUTH ONCE A DAY ON DAY 2 THROUGH DAY 5 03/19 completed Not Available Not Available Not Available tizanidine 4 mg tablet TAKE 1 TABLET BY MOUTH AT BEDTIME NIGHTLY FOR MUSCLE SPASTICIT Y. active Not Available Not Available No t Available fluconazole 150 mg tablet TAKE 1 TABLET BY MOUTH EVERY 3 DAYS FOR 2 DOSES active Not Available Not Available No t [...] Not Available Not Available Not Available amlodipine 5 mg tablet TAKE 1 TABLET BY MOUTH ONCE DAILY active Not Available Not Available No t Available terbinafine HCl 250 mg tablet TAKE 1 TABLET BY MOUTH ONCE DAILY active Not Available Not Available No t Available Kenalog 10 mg/mL suspension for injection Take 2 mL by injection route. 2024 active Not Available Not Available Not Avai lable trazodone 150 mg tablet TAKE 1 TABLET BY MOUTH AT BEDTIME NIGHTLY NEEDED FOR INSOMNIA active Not Available Not Available No t Available ferrous sulfate 325 mg (65 mg iron) tablet TAKE 1 TABLET BY MOUTH THREE TIMES DAILY active Not Available Not Available No t Available warfarin 5 mg tablet ALTERNATE 1 TABLET AND 1.5 TABLETS EVERY OTHER DAY. active Not Available Not Available No t Available flecainide 100 mg tablet TAKE 1 TABLET BY MOUTH EVERY 12 HOURS active Not Available Not Available No t Available gabapentin 100 mg capsule TAKE 1 CAPSULE BY MOUTH ONCE DAILY active Not Available Not Available No t Available oxycodone-a cetaminophe n 7.5 mg-325 mg tablet TAKE 1 TABLET BY MOUTH EVERY 6 HOURS NEEDED BREAKTHRO UGH PAIN 11/10 completed Not Available Not Available Not Available methylpredn isolone 4 mg tablets in a dose pack TAKE BY MOUTH DIRECTED ON INSIDE OF PACKAGE active Not Available Not Available No t Available lisinopril 40 mg tablet TAKE 1 TABLET BY MOUTH ONCE DAILY 11/10 completed Not Available Not Available Not Available metformin ER 500 mg tablet,exte nded release 24 hr TAKE 2 TABLETS BY MOUTH TWICE DAILY active Not Available Not Available No t Available phentermine 37.5 mg capsule TAKE 1 CAPSULE BY MOUTH ONCE DAILY 30 MINUTES BEFORE BREAKFAST OR 1-2 HOURS AFTER BREAKFAST active Not Available Not Available No t Available bupivacaine (PF) 0.5 % (5 mg/mL) injection solution Take 2 mL by injection route. 2024 active Not Available Not Available Not Avai lable bupropion HCl XL 150 mg 24 hr tablet, extended release TAKE 1 TABLET BY MOUTH ONCE DAILY active Not Available Not Available No t Available tizanidine 10/13 completed Not Available Not Available Not Available warfarin 10/13 completed Not Available Not Available Not Available Prozac 12/06 completed Not Available Not Available Not Available trazodone 10/13 completed Not Available [...] Not Available No t Available OneTouch Verio Flex Meter USE TO CHECK GLUCOSE TWICE DAILY active Not Available Not Available No t Available Gelsyn-3 16.8 mg/2 mL intra-artic ular syringe Inject 2 mL by intra-art icular route for 21 days. 2024 active Not Available Not Available Not Avai lable Soliqua 100/33 100 unit-33 mcg/mL subcutaneou s insulin pen INJECT 60 SUBCUTANE OUSLY ONCE DAILY active Not Available Not Available No t Available Soliqua 100/33 10/13 completed Not Available Not Available Not Available Dexcom G6 Sensor device USE DIRECTED active Not Available Not Available No t Available Dexcom G6 Eyelet Operator USE DIRECTED active Not Available Not Available No t Available Dexcom G6 Transmitter device USE DIRECTED CHANGE EVERY 90 DAYS active Not Available Not Available No t Available OneTouch Delica Plus Lancet 30 gauge USE 1 UNIT TO CHECK GLUCOSE THREE TIMES DAILY active Not Available Not Available No t Available Vitals None Recorded Social History Question Answer Notes LastModified by Organizat ion Details LastModified Time Tobacco Smoking Status Former Smoker Sena Stark null, [place] - [facility] - [place] & [place] 10/13/2022 09:20:46 Do You Have An Advance Directive? No Information not available 04/04/2025 Are You Blind Or Do You Have Difficulty Seeing? No Information not available 04/04/2025 What Was The Date Of Your Most Recent Tobacco Screening? 03/20/2025 Information not available 04/04/2025 Are You Passively Exposed To Smoke? No [email or web address] Information not available 10/13/2022 How Much Tobacco Do You Smoke? 1 PPD Information not available 04/04/2025 Sex: Female Functional Status Question Answer Note LastModified by Organizat ion Details LastModified Time Do you use any illicit or recreational drugs? No Information not available 04/04/2025 What is your level of alcohol consumption? None [email or web address] Information not available 10/13/2022 Do you or have you ever used smokeless tobacco? Never used smokeless tobacco Information not available 04/04/2025 What is your exercise level? Occasional Information not available 04/04/2025 Mental Status Question Answer Note LastModified by Organization D etails LastModified Time Do you feel stressed (tense, restless, nervous, or anxious, or unable to sleep at night)? [id number] Information not available 04/04/2025 Family History Relationship Description Onset Age of [...] 09:06:02 Medical History Condition Response Diabetes Y Obesity Y Clotting Disorder Y Arthritis Y Heart Disease Y Back Problems Y Hypertension Y Gynecological History Statement/Question Response Abnormal Pap Y Date of Last Colonoscopy 08/25/2023 06/30/2019 Sexually Active? N Menses Monthly N Current Control Method N/A Obstetrics History GPAL:G 0 P 0 0 0 0 Immunizations Vaccine Type Date Status Note Provider Nam e and Address Organization Details Recorded Time Influenza, split virus, quadrivalent, preservative 8 completed Sena Stark null, [place] [facility] [place] & [place] 11/09/2022 08:25:19 COVID-19, mRNA, LNP-S, PF, 100 mcg/0.5mL dose or 50 mcg/0.25mL dose 1 completed Sena Stark null, [place] [facility] - [place] & [place] 11/09/2022 08:25:19 COVID-19, mRNA, LNP-S, PF, 100 mcg/0.5mL dose or 50 mcg/0.25mL dose 1 completed Sena Stark null[place] [facility] - [place] & [place] 11/09/2022 08:25:19 Tdap 3 completed Sena Stark [place] [facility] [place] & [place] 11/09/2022 08:25:19 Influenza, split virus, trivalent, PF 2 completed Sena Stark null[place] [facility] [place] & [place] 11/09/2022 08:25:19 Influenza, split virus, quadrivalent, PF 6 completed Sena Stark null[place] [facility] [place] & [place] 11/09/2022 08:25:19 Influenza, split virus, quadrivalent, PF 0 completed Snea Stark null[place] [facility] [place] & [place] 11/09/2022 08:25:19 Influenza, split virus, quadrivalent, PF 2 completed Sen[place] null[place] [facility] [place] & [place] 11/09/2022 08:25:19 Influenza, split virus, quadrivalent, PF 1 completed [place] rao[place] [facility] [place] & [place] 11/09/2022 08:25:19 Influenza, split virus, quadrivalent, PF 3 completed Not Available [facility] 04/11/2025 08:32:33 Influenza, split virus, trivalent, PF 4 completed Not Available [facility] 04/11/2025 08:32:33 Influenza, split virus, trivalent, PF 5 completed Not Available [facility] 04/11/2025 08:32:33 Past Encounters Encounter ID Performer Location Encounter Start Date Encounter Closed Date Diagnosis/Indication Diagnosis SNOMED-CT Code Diagnosis ICD10 Code Diagnosis IMO Codes Diagnosis Note [id number] [facility] [place] [id number] 03/22/2025 14:24:51 03/22/2025 15:09:48 Osteoarthritis of left knee joint [id number] 57110 M17.12 [id number] Jhonny Copeland MD [place] [address] 9 03/29/2025 13:49:16 03/29/2025 14:11:01 Closed fracture of proximal phalanx of ring finger 167644302 S62.614A [id number] Health Concerns Section Related Observation LastModified by Organization Detai ls LastModified Time None Recorded Concern Status LastModified by Organization Details LastModified Time None Recorded Payers Encounter Date Sequence Insurance Name Policy Number Policy Freeman Covered Member ID Freeman Member ID Guarantor Name 03/29/2025 1 BELEMBS-SHUBHAM: ASHLIE [place] OF [place] - MEDIBLUE PL[place] (MEDICARE REPLACEMENT HMO) [id number] Georgiana Scott [id number] Georgiana Scott Notes Date Note Type Note Provider Name and Address Organization Details Recorded Time 03/29/2025 text/html This is a 54 y/o female here today for right small and ring finger fractures; DOI: yesterday, 03.28.25 fell backwards, unsure how she landed. Went to [facility] ER yesterday. Placed in aluminum splint. Taking Ibu PRN. E5AP Right hand x-rays [facility] 10.8.25: Minimally displaced fractures of the base of the 4th and 5th proximal phalanges. 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 Jhonny Copeland MD [address] [place] [address],[address], [place], [address], [place] - [place] - [place] & [place] 03/30/2025 07:24:17 OBGyn Episode No OBEpisode recorded.
--- OUTSIDE RECORDS SUMMARY | 2025-04-11 12:44 | XMS_ITS | Clinical Summary ---
Author Organization [facility] Address [address] [place] [address] Care Team Providers Care Narcotics And/Or Vice Detective Name Role Phone Javier Nguyen MD Primary Care Provider [phone] Source Comments This information has been disclosed [...] therelease of HIV test results or diagnoses. [id number] Allergies Active Allergy Reactions Criticality Noted [...] Td or Tdap) 11/04/2022 11/04/2012 Immunization: COVID-19 (3 - season) 2025 03/05/2021, 02/05/2021 Immunization: Influenza (MyC benitez) (#1) [...] Ab Nonreactive Nonreactive 09/07/2023 6:34 PM EDT [facility] Comment:Health Department no tified in accordance with reportable infectious disease guidelines. HCVAB Number 0.13 0.00 - 0.79 S/CO 09/07/2023 6:34 PM EDT [facility] Serum 09/07/2023 4:06 PM EDT 09/07/2023 5:13 PM EDT us Mitchel Oswald MD LAB BLOOD ORDERABLES Final Resul t [facility] [id number] [place] [id number], [facility] from Last 3 Months or Most Recently Relevant to Health Maintenance Insurance BLUE MEDICARE ADVANTAGE Care Teams Narcotics And/Or Vice Detective Relationship Specialty Start Date End Date Javier Nguyen MD [address] [place] [address] PCP - General Family Medicine 09/07/23
--- OUTSIDE RECORDS SUMMARY | 2025-04-11 12:44 | XMS_ITS | Continuity of Care Document ---
Author Organization [facility] Address [address] [facility] [place] [address] Care Team Providers Care Culinary Manager Name Role Phone ROHAN WOODALL Primary Care Provider ROHAN WOODALL Referring Provider GREGORIO ALTAMIRANO Honeycomb Decapper ROHAN WOODALL Primary Care Provider Assessment No assessment recorded. Plan of Treatment Reminders Order Date Submit Date Provider Last Modified By Organization Details Last Modified Time Details Appointments INJ ONLY 10 2024 08:45A M SOFY MONCADA, CEMETERY WARDEN Not available Not available Not available INJ ONLY 15 2024 08:45A M SOFY MONCADA, CEMETERY WARDEN Not available Not available Not available ORT EST 15 2024 09:15A M Jhonny Copeland MD Not available Not available Not available Lab None recorded . Referral None recorded . Procedures None recorded . Surgeries None recorded . Imaging XR, hand 2024 025 [email or web address] [facility], [address] [facility] , [place], [address], 04/04/2025 09:11:51 Medication Orders Gelsyn-3 16.8 mg/2 mL intra-ar ticular syringe 2024 025 [email or web address] [facility], [address] [facility] [place], [address], 04/04/2025 09:35:03 Patient TargetsNo targets recorded. Patient InstructionsNo instructions recorded. Reason for Referral None Reported. Results Created Date Observation Date Name Description Value Unit Range Abnormal Flag Note LastModifiedBy Organization Detail LastModifiedTime 03/22/20 XR, knee No observ ation record ed. TOMMY Reynoso [address] [place], [address], 03/22/2025 14:56:37 04/04/20 XR, hand No observ ation record ed. TOMMY Reynoso [address] [place], [address], 04/04/2025 08:59:08 Result Notes None recorded. Procedures Surgical History Date Name Laterality Status Provider Name and Address Organization Details Recorded Time 4 Date of Last Colonoscopy completed Leah JALLOH - [facility] & [place] 04/04/2025 08:48:49 0 completed Sena JALLOH - [facility] & [place] 10/13/2022 09:20:31 4 Machinist Helper Marine Surgery completed Sena JALLOH - [facility] & [place] 10/13/2022 09:20:50 4 Other completed Sena JALLOH - [facility] & [place] 10/13/2022 09:20:50 Imaging Results None recorded. Procedure Notes None recorded. Medical Equipment None Reported. Allergies Allergen ID Allergen Name Allergen Category Reaction Reaction Severity Criticality Documentation Date Start Date Code Code System Note Provider Name and Address Organization Details Recorded Time 63627 Product containin g penicilli n (product) medicatio n Not available Not available Not available 10/13/2022 78352 8001 SNOMED Sena Stark maira SHUBHAM - [facility] - [place] & [place] 3 09:24:21 Medications Name Sig Start Date [...] Not Available No t Available Dexcom G6 Tile And Marble Setter USE DIRECTED active Not Available Not Available No t Available Dexcom G6 Transmitter device USE DIRECTED CHANGE EVERY 90 DAYS active Not Available Not Available No t Available OneTouch Delica Plus Lancet 30 gauge USE 1 UNIT TO CHECK GLUCOSE THREE TIMES DAILY active Not Available Not Available No t Available Vitals None Recorded Social History Question Answer Notes LastModified by Organizat [employer] Details LastModified Time Tobacco Smoking Status Former Smoker Sena Stark [facility], [place] - [facility] & [place] 10/13/2022 09:20:46 Do You Have An Advance Directive? No Information not available 04/04/2025 Are You Blind Or Do You Have Difficulty Seeing? No Information not available 04/04/2025 What Was The Date Of Your Most Recent Tobacco Screening? 03/20/2025 Information not available 04/04/2025 Are You Passively Exposed To Smoke? No [email or web address] Information not available 10/13/2022 How Much Tobacco Do You Smoke? 1 PPD Information not available 04/04/2025 Sex: Female Functional Status Question Answer Note LastModified by Organizat ion Details LastModified Time Do you use any illicit or recreational drugs? No Information not available 04/04/2025 What is your level of alcohol consumption? None [email or web address] Information not available 10/13/2022 Do you or have you ever used smokeless tobacco? Never used smokeless tobacco Information not available 04/04/2025 What is your exercise level? Occasional Information not available 04/04/2025 Mental Status Question Answer Note LastModified by Organization D etails LastModified Time Do you feel stressed (tense, restless, nervous, or anxious, or unable to sleep at night)? [id number] Information not available 04/04/2025 Family History Relationship [...] Sena Stark null, [place] [facility] - [place] & [place] 11/09/2022 08:25:19 COVID-19, mRNA, LNP-S, PF, 100 mcg/0.5mL dose or 50 mcg/0.25mL dose 1 completed Sena Stark null, [place] [facility] - [place] & [place] 11/09/2022 08:25:19 COVID-19, mRNA, LNP-S, PF, 100 mcg/0.5mL dose or 50 mcg/0.25mL dose 1 completed Sena Stark null, [place] [facility] & [place] 11/09/2022 08:25:19 Tdap 3 completed Sen[place] [facility] & [place] 11/09/2022 08:25:19 Influenza, split virus, trivalent, PF 2 completed Sen[place] [facility] & [place] 11/09/2022 08:25:19 Influenza, split virus, quadrivalent, PF 6 completed Sen[place] null, [place] [facility] [facility] & [place] 11/09/2022 08:25:19 Influenza, split virus, quadrivalent, PF 0 completed Sen[place] [facility] & [place] 11/09/2022 08:25:19 Influenza, split virus, quadrivalent, PF 2 completed Sena [place] null, [place] [facility] [facility] & [place] 11/09/2022 08:25:19 Influenza, split virus, quadrivalent, PF 1 completed Sena Stark null, [place] [facility] [facility] & [place] 11/09/2022 08:25:19 Influenza, split virus, quadrivalent, PF 3 completed Not Available [facility] 04/11/2025 08:32:33 Influenza, split virus, trivalent, PF 4 completed Not Available [facility] 04/11/2025 08:32:33 Influenza, split virus, trivalent, PF 5 completed Not Available Replaced by [facility] 04/11/2025 08:32:33 Past Encounters Encounter ID Performer Location Encounter Start Date Encounter Closed Date Diagnosis/Indication Diagnosis SNOMED-CT Code Diagnosis ICD10 Code Diagnosis IMO Codes Diagnosis Note [id number] MD SONIYA Walker [address] [address] 03/22/2025 14:24:51 03/22/2025 15:09:48 Osteoarthritis of left knee joint [id number] 76787 M17.12 [id number] MD SONIYA Walker [address] [address] 03/29/2025 13:49:16 03/29/2025 14:11:01 Closed fracture of proximal phalanx of ring finger 552922867 S62.614A [id number] SHYANN PULIDO [address] [address] 04/04/2025 08:41:12 04/04/2025 09:11:42 Closed fracture of proximal phalanx of ring finger 390264419 S62.614D [id number] Osteoarthr itis of left knee joint 4386509369 50557 M17.12 [id number] Health Concerns Section Related Observation LastModified by Organization Detai ls LastModified Time None Recorded Concern Status LastModified by Organization Details LastModified Time None Recorded Payers Encounter Date Sequence Insurance Name Policy Number Policy Freeman Covered Member ID Freeman Member ID Guarantor Name 04/04/2025 1 [place] (MEDICARE REPLACEMENT HMO) [id number] Georgiana F Sonia [id number] Georgiana Sonia Notes Date Note Type Note Provider Name and Address Organization Details Recorded Time 04/04/2025 text/html ROS as noted in the HPI Pt is here for her first gelsyn inj to the left knee and f/u of her rt hand. She reports minimal pain of the finger. She continues to wear her TKO brace. We did get Xrays today.DOI: 03.28.25 fell backwards, unsure how she landedRight hand x-rays [facility] 03.28.25: Minimally displaced fractures of the base of the 4th and 5th proximal phalanges. 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 [id number] SOFY MONCADA, SHYANN [address] [facility],[address], [place], [address], [place] - [place] - [place] & [place] 04/04/2025 09:54:29 OBGyn Episode No OBEpisode recorded.
--- OUTSIDE RECORDS SUMMARY | 2025-04-11 12:44 | XMS_ITS | Clinical Summary ---
Author Organization [facility] Address [address] [place] [id number] Care Team Providers Care Hotel Front Office Manager Name Role Phone Unavailable Primary Care Provider [...] 2018 ZOSTER VACCINE (1 of 2) 2018 INFLUENZA VACCINE 01/19/2025
--- OUTSIDE RECORDS SUMMARY | 2025-04-11 12:44 | XMS_ITS | Encounter Summary ---
Author Organization [facility] Address [address] [place] [address] Care Team Providers Care Financial Services Officer Name Role Phone Unavailable Primary Care Provider Unavailabl e Encounter Details Date Type Department Care Team (Late st Contact Info) Description 09/28/2012 Conversion Encounter [facility] HISTORICAL CONV [address] [place] [address] Interface, See Report Social History [...] See Report - 09/28/2012 12:00 AM EDT RADIATION CONTROL TECHNICIAN-Oncology Services [address] [place], [place] [address] Patient: CAROL ANN SCOTT MR #: : [...] Physical exam: Constitutional: [place] [address] Pulse Temp Neurological/Psychiatric: HEENT: Neck: Respiratory: Cardiovascular: [...] given for mammogram to have done at [facility] Approved by: , cc: documented in this encounter Plan of Treatment Not on file documented as of this encounter Visit Diagnoses Not on filedocumented in this encounter
--- OUTSIDE RECORDS SUMMARY | 2025-04-11 12:44 | XMS_ITS | Continuity of Care Document ---
Author Organization [facility] Address [address] [place] [address] [place] [address] Care Team Providers Care Campaign Marketing Manager Name Role Phone ROHAN WOODALL Primary Care Provider [phone] ROHAN WOODALL Referring Provider [phone] GREGORIO ALTAMIRANO Electronic Induction Hardener [phone] ROHAN WOODALL Primary Care Provider Assessment No assessment recorded. Plan of Treatment Reminders Order Date Submit Date Provider Last Modified By Organization Details Last Modified Time Details Appointments INJ ONLY 10 2024 08:45A M SOFY MONCADA, DOCUMENTATION CONSULTANT Not available Not available Not available INJ ONLY 15 2024 08:45A M SOFY MONCADA, DOCUMENTATION CONSULTANT Not available Not available Not available ORT EST 15 2024 09:15A M Jhonny Copeland MD Not available Not available Not available Lab None recorded. Referral None recorded. Procedures None recorded. Surgeries None recorded. Imaging XR, knee 2024 025 [email or web address] [facility], [address] [place] [address] , [place], [address], 03/26/2025 07:33:06 Medication Orders Kenalog 10 mg/mL suspensio n for injection 2024 025 [email or web address] [facility], [address], [place], [address], 03/26/2025 07:33:06 bupivacai ne (PF) 0.5 % (5 mg/mL) injection solution 2024 025 [email or web address] [facility], [address] [place], [address], 03/26/2025 07:33:06 Patient TargetsNo targets recorded. Patient InstructionsNo instructions recorded. Reason for Referral None Reported. Results Created Date Observation Date Name Description Value Unit Range Abnormal Flag Note LastModifiedBy Organization Detail LastModifiedTime 03/22/20 25 XR, knee No observ ation record ed. TOMMY Reynoso [address] , [place], [address], 03/22/2025 14:56:37 04/04/20 25 XR, hand No observ ation record ed. TOMMY Reynoso [address] , [place], [address], 04/04/2025 08:59:08 Result Notes None recorded. Procedures Surgical History Date Name Laterality Status Provider Name and Address Organization Details Recorded Time 4 Date of Last Colonoscopy completed Leah Zeinab [facility] 04/04/2025 08:48:49 0 completed Sena [facility] 10/13/2022 09:20:31 4 Technical Operations Vice President [facility] 09:20:50 4 Other completed [facility] 10/13/2022 09:20:50 Imaging Results None recorded. Procedure Notes None recorded. Medical Equipment None Reported. Allergies Allergen ID Allergen Name Allergen Category Reaction Reaction Severity Criticality Documentation Date Start Date Code Code System Note Provider Name and Address Organization Details Recorded Time 99223 Product containin g penicilli n (product) medicatio n Not available Not available Not available 10/13/2022 06234 8001 SNOMED Sena Stark [facility], [place] - [facility] - [place] & [place] 3 09:24:21 Medications Name Sig Start Date [...] 2024 active Not Available Not Available Not Eva pierce Soliqua 100/33 100 unit-33 mcg/mL subcutaneou s insulin pen INJECT 60 SUBCUTANE OUSLY ONCE DAILY active Not Available Not Available No t Available Soliqua 100/33 10/13 completed Not Available Not Available Not Available Dexcom G6 Sensor device USE DIRECTED active Not Available Not Available No t Available Dexcom G6 Labor Utilization Superintendent USE DIRECTED active Not Available Not Available No t Available Dexcom G6 Transmitter device USE DIRECTED CHANGE EVERY 90 DAYS active Not Available Not Available No t Available OneTouch Delica Plus Lancet 30 gauge USE 1 UNIT TO CHECK GLUCOSE THREE TIMES DAILY active Not Available Not Available No t Available Vitals None Recorded Social History Question Answer Notes LastModified by [email or web address] ion Details LastModified Time Tobacco Smoking Status Former Smoker Sena Stark [facility], [facility] & [place] 10/13/2022 09:20:46 Do You Have An Advance Directive? No Information not available 04/04/2025 Are You Blind Or Do You Have Difficulty Seeing? No Information not available 04/04/2025 What Was The Date Of Your Most Recent Tobacco Screening? 03/20/2025 Information not available 04/04/2025 Are You Passively Exposed To Smoke? No [email or web address] Information not available 10/13/2022 How Much Tobacco Do You Smoke? 1 PPD Information not available 04/04/2025 Sex: Female Functional Status Question Answer Note LastModified by Organizat ion Details LastModified Time Do you use any illicit or recreational drugs? No Information not available 04/04/2025 What is your level of alcohol consumption? None [email or web address] Information not available 10/13/2022 Do you or have you ever used smokeless tobacco? Never used smokeless tobacco Information not available 04/04/2025 What is your exercise level? Occasional Information not available 04/04/2025 Mental Status Question Answer Note LastModified by Organization D etails LastModified Time Do you feel stressed (tense, restless, nervous, or anxious, or unable to sleep at night)? [id number] Information not available 04/04/2025 Family History Relationship [...] available 10/13/2022 09:06:02 Medical History Condition Response Obesity Y Arthritis Y Back Problems Y Clotting Disorder Y Diabetes Y Heart Disease Y Hypertension Y Gynecological History Statement/Question Response Abnormal Pap Y Date of Last Colonoscopy 08/25/2023 06/30/2019 Sexually Active? N Menses Monthly N Current Control Method N/A Obstetrics History GPAL:G 0 P 0 0 0 0 Immunizations Vaccine Type Date Status Note Provider Nam e and Address Organization Details Recorded Time Influenza, split virus, quadrivalent, preservative 8 completed SHUBHAM Taylor - [facility] & [place] 11/09/2022 08:25:19 COVID-19, mRNA, LNP-S, PF, 100 mcg/0.5mL dose or 50 mcg/0.25mL dose 1 completed SHUBHAM Taylor - [facility] & [place] 11/09/2022 08:25:19 COVID-19, mRNA, LNP-S, PF, 100 mcg/0.5mL dose or 50 mcg/0.25mL dose 1 completed Sena rao [place] - [place] - [place] & [place] 11/09/2022 08:25:19 Tdap 3 completed Sena Stark null, [place] [facility] & [place] 11/09/2022 08:25:19 Influenza, split virus, trivalent, PF 2 completed Sena Stark null, [place] - [place] & [place] 11/09/2022 08:25:19 Influenza, split virus, quadrivalent, PF 6 completed Sena Stark [place] [facility] & [place] 11/09/2022 08:25:19 Influenza, split virus, quadrivalent, PF 0 completed Sena Stark [place] [facility] & [place] 11/09/2022 08:25:19 Influenza, split virus, quadrivalent, PF 2 completed Sena Stark null, [place] - [facility] & [place] 11/09/2022 08:25:19 Influenza, split virus, quadrivalent, PF 1 completed Sena Stark null, [place] - [facility] & [place] 11/09/2022 08:25:19 Influenza, split virus, quadrivalent, PF 3 completed Not Available [facility] 04/11/2025 08:32:33 Influenza, split virus, trivalent, PF 4 completed Not Available [facility] 04/11/2025 08:32:33 Influenza, split virus, trivalent, PF 5 completed Not Available [facility] 04/11/2025 08:32:33 Past Encounters Encounter ID Performer Location Encounter Start Date Encounter Closed Date Diagnosis/Indication Diagnosis SNOMED-CT Code Diagnosis ICD10 Code Diagnosis IMO Codes Diagnosis Note [id number] MD SONIYA Walker [address] [address] 03/22/2025 14:24:51 03/22/2025 15:09:48 Osteoarthritis of left knee joint [id number] 29874 M17.12 [id number] Health Concerns Section Related Observation LastModified by Organization Detai ls LastModified Time None Recorded Concern Status LastModified by Organization Details LastModified Time None Recorded Payers Encounter Date Sequence Insurance Name Policy Number Policy Freeman Covered Member ID Freeman Member ID Guarantor Name 03/22/2025 1 [place] (MEDICARE REPLACEMENT HMO) [id number] Georgiana Scott [id number] Georgiana Scott Notes Date Note Type Note Provider Name and Address Organization Details Recorded Time 03/22/2025 text/html ROS as noted in the HPI Patient is here today for left knee pain. Has been ongoing for 2 months with no injury. Patient is complaining of pain about the knee with painful ROM. Patient want to try steriod injection today and talk about Gel injections. E4 JS SOFY MONCADA, SHYANN [address] [facility],[address], [place], [address], [facility] - [place] - [place] & [place] 03/23/2025 08:38:10 OBGyn Episode No OBEpisode recorded.
--- OUTSIDE RECORDS SUMMARY | 2025-04-11 12:45 | XMS_ITS | Clinical Summary ---
Author Organization [facility] Address [address] [place] [address] Care Team Providers Care Occupational Health Nursing Director Name Role Phone Javier Nguyen MD Primary Care Provider [phone] Lissy Batista MD Unavailable [phone] Allergies Active Allergy Reactions Criticality Noted Date [...] Advance Directives For more information, please contact: [phone] * Full Code (Latest Code Status on File) Date Activated Date Inactivated Comments 10/30/2013 5:08 PM 10/31/2013 9:54 PM Care Teams Occupational Health Nursing Director Relationship Specialty Start Date End Date Javier Nguyen MD PCP - General Family Medicine 10/23/13 Lissy Batista MD [address] [place] [id number] Gynecologic Oncology 06/28/22
--- OUTSIDE RECORDS SUMMARY | 2025-04-11 12:45 | XMS_ITS | Clinical Summary ---
Author Organization [facility] Address [address] [place] [address] Phone Care Team Providers Care Environmental Health And Safety Manager Name Role Phone Javier Nguyen MD Primary Care Provider [phone] Allergies Active Allergy Reactions Criticality Noted Date [...] STENT PLACEMENT; Surgeon: Renée Forbes MD; Location: [facility] MAIN OR; Service: Urology Medical devices from [...] 11/04/2022 11/04/2012 COVID-19 Vaccine (3 - season) 2025 03/05/2021, 02/05/2021 Influenza Vaccine (#1) 2025 , 07/12/2017, 04/01/2016, Additional history exists Meningococcal B Vaccine Aged Out No l onger eligible based on patient's age to complete this topic Medical Devices Implanted Type Area Software Quality Test Engineer Device Identifier Shelf Expiration Date Model / Serial / Lot Stent Ureteral Contour 6 X 26 #180-223 - [id number] Implanted:Qty: 1 on 10/13/2017 by Renée Forbes MD at [facility] Stent Right: Ureter [employer]:MICROVASIVE: UROLOGY 07/26/2020 180-223 / / [id number] Ivc Filter Procedures Procedure Name Priority Date/Time [...] Impressions 07/20/2017 2:09 PM EST : Negative ([id number]) ~ RECOMMENDATION: Routine screening mammogram in 1 [...] MAMMO DIG SCREEN CAD BILAT performed at [facility]. There are scattered fibroglandular densities. Compared with prior studies, the most recent being 07-05-13. ~ Javier Nguyen MD IMG MAMMOGRAPHY ORDERABLES Final Result from Last 3 Months or Most Recently Relevant to Health Maintenance Insurance ASHLIE GONZALEZ ASHLIE ÁLVARO MR * Guarantor: Carol Ann Scott Account Type Relation to Patient Date of Phone Billing Address [place] Personal Family Self Care Teams Environmental Health And Safety Manager Relationship Specialty Start Date End Date Javier Nguyen MD PCP - General 07/16/09
--- OUTSIDE RECORDS SUMMARY | 2025-04-11 12:45 | XMS_ITS | Clinical Summary ---
Author Organization [facility] Address [address] [place] [address] Care Team Providers Care Data Communications Technician Name Role Phone Unavailable Primary Care Provider [...] of 2) 2018 COVID-19 VACCINE (1 - 2024- season) 2025 INFLUENZA VACCINE (#1) 2025
--- OUTSIDE RECORDS SUMMARY | 2025-04-11 12:45 | XMS_ITS | Data Portability ---
Author Organization [facility] Address [address] [place] [address] Care Team Providers Care Assistant Health Educator Name Role Phone ROHAN WOODALL Primary Care Provider ROHAN WOODALL Referring Provider [phone] GREGORIO ALTAMIRANO Farm Appraiser ROHAN WOODALL Primary Care Provider Assessment No assessment recorded. Plan of Treatment Reminders Order Date Submit Date Provider Last Modified By Organization Details Last Modified Time Details Appointments INJ ONLY 10 2024 08:45A M SOFY MONCADA, COMMUNICATIONS SCIENTIST Not available Not available Not available INJ ONLY 15 2024 08:45A M SOFY MONCADA, COMMUNICATIONS SCIENTIST Not available Not available Not available ORT EST 15 2024 09:15A M Jhonny Copeland MD Not available Not available Not available Lab None recorded. Referral None recorded. Procedures None recorded. Surgeries None recorded. Imaging XR, hand 2024 025 [email or web address] [facility], [address] [place] [address] [place], [address], 04/04/2025 09:11:51 XR, knee 2024 025 [email or web address] [facility], [address] [place] [address] [place], [address], 03/26/2025 07:33:06 XR, shoulder 2022 023 [email or web address] Soniya [facility], [address] [place] [address] [place], [address], 12/17/2022 13:40:35 Medication Orders Gelsyn-3 16.8 mg/2 mL intra-art icular syringe [address] [facility], [address] [place], [address], 04/11/2025 09:00:49 Gelsyn-3 16.8 mg/2 mL intra-art icular syringe [address] [facility], [address] [place], [address], 04/04/2025 09:35:03 Kenalog 10 mg/mL suspensio n for injection [address] [facility], [address] [place], [address], 03/26/2025 07:33:06 bupivacai ne (PF) 0.5 % (5 mg/mL) injection solution [address] [facility], [address] [place] [address], [address], 03/26/2025 07:33:06 Patient TargetsNo targets recorded. Patient InstructionsNo instructions recorded. Reason for Referral None Reported. Results Created Date Observation Date Name Description Value Unit Range Abnormal Flag Note LastModifiedBy Organization Detail LastModifiedTime 12/18/19 23 XR, shoul servando No observ ation record ed. TOMMY Reynoso [address] [place], [address], 12/17/2022 13:22:30 03/22/20 25 XR, knee No observ ation record ed. TOMMY Reynoso [place] [id number] [facility] [place], [address], 03/22/2025 14:56:37 04/04/20 25 XR, hand No observ ation record ed. TOMMY Reynoso [facility] [address] [facility] [place], [address], 04/04/2025 08:59:08 Result Notes None recorded. Procedures Surgical History Date Name Laterality Status Provider Name and Address Organization Details Recorded Time 4 Date of Last Colonoscopy completed Leah JALLOH - [facility] & [place] 04/04/2025 08:48:49 0 completed Sena JALLOH - [facility] - [place] & [place] 10/13/2022 09:20:31 4 Scientific Recruiter Surgery completed Sena Jolleys [place] - [facility] - [place] & [place] 10/13/2022 09:20:50 4 Other completed Sena Jolleys [place] - [facility] - [place] & [place] 10/13/2022 09:20:50 Imaging Results None recorded. Procedure Notes None recorded. Medical Equipment None Reported. Allergies Allergen ID Allergen Name Allergen Category Reaction Reaction Severity Criticality Documentation Date Start Date Code Code System Note Provider Name and Address Organization Details Recorded Time 27906 Product containin g penicilli n (product) medicatio n Not available Not available Not available 10/13/2022 93362 8001 SNOMED Sena rao, SHUBH[place] - [facility] - [place] & [place] 3 09:24:21 Medications Name Sig Start Date [...] Not Available No t Available Dexcom G6 Ice Cream Freezer Helper USE DIRECTED active Not Available Not Available No t Available Dexcom G6 Transmitter device USE DIRECTED CHANGE EVERY 90 DAYS active Not Available Not Available No t Available OneTouch Delica Plus Lancet 30 gauge USE 1 UNIT TO CHECK GLUCOSE THREE TIMES DAILY active Not Available Not Available No t Available Vitals Date Recorded Body height Body temperature Heart rate Respiratory rate Systolic And Diastolic Provider Name and Address Organization Details Last Updated DateTime 3 175.26 cm 97.9 [degF] 70 /min 18 /min 158/75 mm[Hg] Jacque Sales [facility] & [place] 3 13:09:18 Social History Question Answer Notes LastModified by [employer] Details LastModified Time Tobacco Smoking Status Former Smoker Sena rao, [facility] & [place] 10/13/2022 09:20:46 Do You Have An Advance Directive? No Information not available 04/04/2025 Are You Blind Or Do You Have Difficulty Seeing? No Information not available 04/04/2025 What Was The Date Of Your Most Recent Tobacco Screening? 03/20/2025 Information not available 04/04/2025 Are You Passively Exposed To Smoke? No [email or web address] Information not available 10/13/2022 How Much Tobacco Do You Smoke? 1 PPD Information not available 04/04/2025 Sex: Female Functional Status Question Answer Note LastModified by Organkubo financiero Details LastModified Time Do you use any illicit or recreational drugs? No Information not available 04/04/2025 What is your level of alcohol consumption? None [email or web address] Information not available 10/13/2022 Do you or have you ever used smokeless tobacco? Never used smokeless tobacco Information not available 04/04/2025 What is your exercise level? Occasional Information not available 04/04/2025 Mental Status Question Answer Note LastModified by Organization D etails LastModified Time Do you feel stressed (tense, restless, nervous, or anxious, or unable to sleep at night)? [id number] Information not available 04/04/2025 Family History Relationship [...] Arthritis Y Diabetes Y Back Problems Y Heart Disease Y Hypertension Y Gynecological [...] Sena Stark null, [place] [facility] & [place] 11/09/2022 08:25:19 COVID-19, mRNA, LNP-S, PF, 100 mcg/0.5mL dose or 50 mcg/0.25mL dose 1 completed Sena Stark [place], [place] & [place] 11/09/2022 08:25:19 COVID-19, mRNA, LNP-S, PF, 100 mcg/0.5mL dose or 50 mcg/0.25mL dose 1 completed Sena Stark [place], [place] 11/09/2022 08:25:19 Tdap 3 completed Sena Stark [place] 11/09/2022 08:25:19 Influenza, split virus, trivalent, PF 2 completed Sena Stark [place] 11/09/2022 08:25:19 Influenza, split virus, quadrivalent, PF 6 completed Sena Stark [place] [facility] & [place] 11/09/2022 08:25:19 Influenza, split virus, quadrivalent, PF 0 completed Sena Stark [place] 11/09/2022 08:25:19 Influenza, split virus, quadrivalent, PF 2 completed Sena [place] 11/09/2022 08:25:19 Influenza, split virus, quadrivalent, PF 1 completed Sena Stark [place] [facility] & [place] 11/09/2022 08:25:19 Influenza, split virus, quadrivalent, PF 3 completed Not Available [facility] 04/11/2025 08:32:33 Influenza, split virus, trivalent, PF 4 completed Not Available [facility] 04/11/2025 08:32:33 Influenza, split virus, trivalent, PF 5 completed Not Available [facility] 04/11/2025 08:32:33 Past Encounters Encounter ID Performer Location Encounter Start Date Encounter Closed Date Diagnosis/Indication Diagnosis SNOMED-CT Code Diagnosis ICD10 Code Diagnosis IMO Codes Diagnosis Note [id number] MD SONIYA Walker [address] [address] 10/13/2022 08:37:06 10/13/2022 09:59:20 Closed fracture of proximal right humerus [id number] S42.201A [id number] SHYANN PULIDO [address] [address] 11/10/2022 09:20:06 11/10/2022 09:47:24 Closed fracture of proximal right humerus 7633178003 9090598 S42.201D [id number] SHYANN PULIDO [address] [address] 12/17/2022 13:01:31 12/17/2022 13:40:35 Closed fracture of proximal right humerus 6895933856 5525168 S42.201D [id number] Jhonny Copeland MD [facility] [address] [place], [place] [address] 03/22/2025 14:24:51 03/22/2025 15:09:48 Osteoarthritis of left knee joint 1726523471 87789 M17.12 [id number] Jhonny Copeland MD [facility] [address] [place] [address] 9 03/29/2025 13:49:16 03/29/2025 14:11:01 Closed fracture of proximal phalanx of ring finger 766462277 S62.614A [id number] SOFY [facility]ADA [facility] [place] [id number] 04/04/2025 08:41:12 04/04/2025 09:11:42 Closed fracture of proximal phalanx of ring finger 482738144 S62.614D [id number] Osteoarthr itis of left knee joint 6232968873 92024 M17.12 [id number] SOFY MONCADA NP [facility] [place] [address] 9 04/11/2025 08:31:20 04/11/2025 09:01:21 Osteoarthritis of left knee joint 6274213299 56397 M17.12 [id number] Health Concerns Section Related Observation LastModified by Organization Detai ls LastModified Time None Recorded Concern Status LastModified by Organization Details LastModified Time None Recorded Advance Directives Directive N: Payers Insurance Date Sequence Insurance Name Policy Number Policy Freeman Covered Member ID Freeman Member ID Guarantor Name 04/10/2025 1 [place]: ASHLIE BCBS OF [facility] MEDIBLUE PLUS (MEDICARE REPLACEMENT HMO) [id number] Carol Ann Scott [id number] Carol Ann Scott Notes Date Note Type Note Provider Name and Address Organization Details Recorded Time 12/17/2022 text/html Patient is here for x-ray follow up of right shoulder - impacted proximal humerus fracture. She sustained the injury 10 weeks ago. (4.) She states she has some pain with certain activities, otherwise she feels . She went to 3-4 PT visits. SOFY MONCADA NP [address] [place] [address],[address], [place], [address], [facility] & [place] 12/17/2022 13:40:24 03/22/2025 text/html ROS as noted in the HPI Patient is here today for left knee pain. Has been ongoing for 2 months with no injury. Patient is complaining of pain about the knee with painful ROM. Patient want to try steriod injection today and talk about Gel injections. E4 JS SOFY MONCADA NP [address] [place] [address],[address], [place], [address], [facility] & [place] 03/23/2025 08:38:10 03/29/2025 text/html This is a 54 y/o female here today for right small and ring finger fractures; DOI: yesterday, 03.28.25 fell backwards, unsure how she landed. Went to [facility] ER yesterday. Placed in aluminum splint. Taking Ibu PRN. E5AP Right hand x-rays [facility] 03.28.25: Minimally displaced fractures of the base of the 4th and 5th proximal phalanges. 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 Jhonny Copeland MD [address] [place] [address],[address], [place], [address], [facility] & [place] 03/30/2025 07:24:17 04/04/2025 text/html ROS as noted in the HPI Pt is here for her first gelsyn inj to the left knee and f/u of her rt hand. She reports minimal pain of the finger. She continues to wear her TKO brace. We did get Xrays today.DOI: 03.28.25 fell backwards, unsure how she landedRight hand x-rays [facility] 03.28.25: Minimally displaced fractures of the base of the 4th and 5th proximal phalanges. 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 [id number] SOFY MONCADA, SHYANN [address] [facility],[address], [place], [address], [facility] & [place] 04/04/2025 09:54:29 04/11/2025 text/html ROS as noted in the HPI Patient is here today for her 2nd left knee Gelsyn injection. States the injections are helping E5 JS SOFY MONCADA, SHYANN [address] [facility],[address], [place], [address], [facility] & [place] 04/11/2025 09:00:46 OBGyn Episode No OBEpisode recorded.
--- OUTSIDE RECORDS SUMMARY | 2025-04-11 12:45 | XMS_ITS | Clinical Summary ---
Author Organization [facility] Address [facility] [place] [address] Care Team Providers Care Photo Colorer Name Role Phone Unavailable Primary Care Provider Unavailabl e Source Comments [facility] is fully rolled out with thefollowing exceptions:General Clinical Research [facility] Social History Tobacco Use Types Packs/Day [...] of 3 - 19+ 3-dose series) 1987 AMB SEASONAL FLU VACCINE (#1) 02/19/2025 COVID-19 Vaccine (2023-2 5 season) 2025 HIB IMMUNIZATION Aged Out No longer e [...]
--- OUTSIDE RECORDS SUMMARY | 2025-04-11 12:45 | XMS_ITS | Continuity of Care Document ---
Author Organization [place] - [facility] - [facility], 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 Plan of Treatment Reminders Order Date Submit Date Provider Last Modified By Organization Details Last Modified Time Details Appointments INJ ONLY 10 2024 08:45A M SOFY MONCADA, WINDMILL TECHNICIAN Not available Not available Not available INJ ONLY 15 2024 08:45A M SOFY MONCADA WINDMILL TECHNICIAN Not available Not available Not available ORT EST 15 2024 09:15A M Jhonny Copeland MD Not available Not available Not available Lab None recorded . Referral None recorded . Procedures None recorded . Surgeries None recorded . Imaging None recorded . Medication Orders Gelsyn-3 16.8 mg/2 mL intra-ar ticular syringe 2024 025 [email or web address] [address] [place], [address], 04/11/2025 09:00:49 Patient TargetsNo targets recorded. Patient InstructionsNo instructions recorded. Reason for Referral None Reported. Results Created Date Observation Date Name Description Value Unit Range Abnormal Flag Note LastModifiedBy Organization Detail LastModifiedTime 03/22/20 25 XR, knee No observ ation record ed. TOMMY Edgardo [place] [id number] [facility] , [place], [address], 03/22/2025 14:56:37 04/04/20 25 XR, hand No observ ation record ed. TOMMY Edgardo [facility] [address] [facility] [place], [address], 04/04/2025 08:59:08 Result Notes None recorded. Procedures Surgical History Date Name Laterality Status Provider Name and Address Organization Details Recorded Time 4 Date of Last Colonoscopy completed Leah JALLOH - [facility] & [place] 04/04/2025 08:48:49 0 completed Sena JALLOH - [facility] & [place] 10/13/2022 09:20:31 4 Pediatrics Physician Surgery completed Sena Jolleys [place] - [facility] - [place] [facility] [place] 10/13/2022 09:20:50 4 Other completed Sena Jolleys [place] - [facility] - [place] & [place] 10/13/2022 09:20:50 Imaging Results None recorded. Procedure Notes None recorded. Medical Equipment None Reported. Allergies Allergen ID Allergen Name Allergen Category Reaction Reaction Severity Criticality Documentation Date Start Date Code Code System Note Provider Name and Address Organization Details Recorded Time 47423 Product containin g penicilli n (product) medicatio n Not available Not available Not available 10/13/2022 50429 8001 SNOMED Sena rao, [place] - [facility] - [place] & [place] 3 09:24:21 Medications Name Sig Start Date [...] Not Available No t Available Dexcom G6 [place] USE DIRECTED active Not Available Not Available No t Available Dexcom G6 Transmitter device USE DIRECTED CHANGE EVERY 90 DAYS active Not Available Not Available No t Available OneTouch Delica Plus Lancet 30 gauge USE 1 UNIT TO CHECK GLUCOSE THREE TIMES DAILY active Not Available Not Available No t Available Vitals None Recorded Social History Question Answer Notes LastModified by Organizat [facility] Details LastModified Time Tobacco Smoking Status Former Smoker Sena Stark [facility], [place] - [facility] & [place] 10/13/2022 09:20:46 Do You Have An Advance Directive? No Information not available 04/04/2025 Are You Blind Or Do You Have Difficulty Seeing? No Information not available 04/04/2025 What Was The Date Of Your Most Recent Tobacco Screening? 03/20/2025 Information not available 04/04/2025 Are You Passively Exposed To Smoke? No [email or web address] Information not available 10/13/2022 How Much Tobacco Do You Smoke? 1 PPD Information not available 04/04/2025 Sex: Female Functional Status Question Answer Note LastModified by Organizat [facility] Details LastModified Time Do you use any illicit or recreational drugs? No Information not available 04/04/2025 What is your level of alcohol consumption? None [email or web address] Information not available 10/13/2022 Do you or have you ever used smokeless tobacco? Never used smokeless tobacco Information not available 04/04/2025 What is your exercise level? Occasional Information not available 04/04/2025 Mental Status Question Answer Note LastModified by Organization D etails LastModified Time Do you feel stressed (tense, restless, nervous, or anxious, or unable to sleep at night)? [id number] Information not available 04/04/2025 Family History Relationship [...] Diabetes Y Clotting Disorder Y Obesity Y Arthritis Y Heart Disease Y Back [...] null, [place] - [facility] [place] [facility] [place] 11/09/2022 08:25:19 COVID-19, mRNA, LNP-S, PF, 100 mcg/0.5mL dose or 50 mcg/0.25mL dose 1 completed Sena Stark null, [place] [facility] [place] [facility] [place] 11/09/2022 08:25:19 COVID-19, mRNA, LNP-S, PF, 100 mcg/0.5mL dose or 50 mcg/0.25mL dose 1 completed Sena Stark null, [place] [facility] [place] [facility] [place] 11/09/2022 08:25:19 Tdap 3 completed Sena Stark null, [place] [facility] [place] [facility] [place] 11/09/2022 08:25:19 Influenza, split virus, trivalent, PF 2 completed Sena Stark null, [place] [facility] [place] [facility] [place] 11/09/2022 08:25:19 Influenza, split virus, quadrivalent, PF 6 completed Sena Stark null, [place] [facility] [place] [facility] [place] 11/09/2022 08:25:19 Influenza, split virus, quadrivalent, PF 0 completed Sena Stark null, [place] - [facility] - [place] [facility] [place] 11/09/2022 08:25:19 Influenza, split virus, quadrivalent, PF 2 completed Sena Jolleys null, [place] - [facility] - [place] [facility] [place] 11/09/2022 08:25:19 Influenza, split virus, quadrivalent, PF 1 completed Sena Stark null, [place] - [facility] - [place] [facility] [place] 11/09/2022 08:25:19 Influenza, split virus, quadrivalent, PF 3 completed Not Available [facility] 04/11/2025 08:32:33 Influenza, split virus, trivalent, PF 4 completed Not Available [facility] 04/11/2025 08:32:33 Influenza, split virus, trivalent, PF 5 completed Not Available [facility] 04/11/2025 08:32:33 Past Encounters Encounter ID Performer Location Encounter Start Date Encounter Closed Date Diagnosis/Indication Diagnosis SNOMED-CT Code Diagnosis ICD10 Code Diagnosis IMO Codes Diagnosis Note [id number] MD EDGARDO Walker [facility] [place] [address] 03/22/2025 14:24:51 03/22/2025 15:09:48 Osteoarthritis of left knee joint 6612869200 48000 M17.12 [id number] MD EDGARDO [facility] [place] [address] 03/29/2025 13:49:16 03/29/2025 14:11:01 Closed fracture of proximal phalanx of ring finger 103137303 S62.614A [id number] SHYANN PULIDO [facility] [place] [address] 04/04/2025 08:41:12 04/04/2025 09:11:42 Closed fracture of proximal phalanx of ring finger 904020636 S62.614D [id number] Osteoarthr itis of left knee joint 5506490481 04577 M17.12 [id number] SFOY MONCADA NP [facility] [address] [place] [address] 04/11/2025 08:31:20 04/11/2025 09:01:21 Osteoarthritis of left knee joint [id number] 23508 M17.12 [id number] Health Concerns Section Related Observation LastModified by Organization Detai ls LastModified Time None Recorded Concern Status LastModified by Organization Details LastModified Time None Recorded Payers Encounter Date Sequence Insurance Name Policy Number Policy Freeman Covered Member ID Freeman Member ID Guarantor Name 04/11/2025 1 [place] (MEDICARE REPLACEMENT HMO) [id number] Carol Ann Scott [id number] Carol Ann Scott Notes Date Note Type Note Provider Name and Address Organization Details Recorded Time 04/11/2025 text/html ROS as noted in the HPI Patient is here today for her 2nd left knee Gelsyn injection. States the injections are helping E5 JS SOFY MONCADA NP [address] [facility],[address], [place], [address], [place] - [facility] [place] [facility] [place] 04/11/2025 09:00:46 OBGyn Episode No OBEpisode recorded.
--- OUTSIDE RECORDS SUMMARY | 2025-04-11 12:46 | XMS_ITS | Data Portability ---
Author Organization [facility] Address [address] [place] [address] Care Team Providers Care Butter Liquefier Name Role Phone JAVIER NGUYEN Primary Care Provider [phone] Assessment Encounter Date Assessment Date Assessment LastModified [...] hyst Rx Lisinopril 40 mg HCTZ 50 [place] 7.5 mg 1/2 tablet TID #45 [facility] Not available 02/25/2018 11:31:41 Plan of Treatment Reminders Order Date Submit Date Provider Last Modified By Organization Details Last Modified Time Details Appointments None recorde d. Lab INR, capilla ry blood 2017 018 [facility], [address] [place], [address], 8 14:03:28 HbA1c (hemogl obin A1c), blood 2017 018 [facility], [address] [place], [address], 8 14:03:28 INR, capilla ry blood 2017 018 [facility], [address] [place], [address], 8 16:39:37 urinaly rosangela mackenzie k 2017 018 [facility], [address] [place], [address], 8 14:27:34 INR, capilla ry blood 2017 018 [facility], [address] [place], [address], 8 14:27:34 HbA1c (hemogl obin A1c), blood 2017 018 [facility], [address] [place], [address], 8 14:27:34 INR, capilla ry blood 2017 018 [facility], [address] [place], [address], 8 10:44:56 INR, capilla ry blood 2017 018 [facility], [address] [place], [address], 8 10:44:56 INR, capilla ry blood 2017 018 [facility], [address] [place], [address], 8 10:36:20 Referral None recorde d. Procedures None recorde d. Surgeries None recorde d. Imaging None recorde d. Medication Orders hydroco done 7.5 mg-acet aminoph en 325 mg tablet 2017 018 [facility] [address] [place], [address], 8 11:32:24 lisinop ril 40 mg tablet 2017 018 [facility] [address], [address] [place], [address], 8 14:23:34 hydroch lorothi azide 50 mg tablet 2017 018 [facility] [address], [address] [place], [address], 8 14:23:34 warfari n 5 mg tablet 2017 018 [email or web address] [facility] [address], [address] [place], [address], 8 13:55:45 hydroco done 7.5 mg-acet aminoph en 325 mg tablet [address], [address] [place], [address], 8 11:50:15 trazodo ne 150 mg tablet 2017 018 [facility] [address], [address] [place] [address], [address], 8 14:27:34 lisinop ril 40 mg tablet 2017 018 [facility] [address], [address] [place] [address], [address], 8 14:27:34 Effexor XR 150 mg capsule ,extend ed release 2017 018 [place] [address], [address] [place] [address], [address], 8 19:38:05 tamsulo sin 0.4 mg capsule 2017 018 [place] [address], [address] [place] [address], [address], 8 10:36:20 Lovenox 100 mg/mL subcuta neous syringe [address], [address] [place] [address], [address], 8 11:32:59 Patient TargetsNo targets recorded. Patient Instructions Encounter Date Encounter Id Patient Instructions Last Modified By Organization Details Last Modified Time 10/04/2017 [id number] kidney stone: care instructions sneus Not available 10/04/2017 10:36:20 high blood pressure: care instructions sneus Not available 10/04/2017 10:36:20 learning about high blood pressure sneus Not available 10/04/2017 10:36:20 12/17/2017 [id number] When You Want to Lose Weight: Care Instructions sneus Not available 01/14/2018 16:39:37 type 2 diabetes: care instructions sneus Not available 12/17/2017 14:27:34 high blood pressure: care instructions sneus Not available 12/17/2017 14:27:34 learning about high blood pressure sneus Not available 12/17/2017 14:27:34 learning about mood disorders sneus Not available 01/14/2018 16:39:37 02/04/2018 [id number] arthritis: care instructions sneus Not available 02/04/2018 [...] n A1c), blood HbA1c 7.2 Not Available [address] [place], [address], 09/06/2017 10:56:47 09/07/19 18 09/06/2017 INR, capil aamir blood INR 3.4 Not Available [facility] [address] [place] [address] [place], [address], 09/06/2017 09:48:42 10/05/19 18 10/04/2017 INR, capil aamir blood INR 1.4 Not Available [facility] [address] [place], [address], 10/04/2017 08:32:50 11/02/19 18 11/01/2017 INR, capil aamir blood INR 2.4 Not Available [address] [place], [address], 11/01/2017 09:09:09 11/02/19 18 11/01/2017 INR, dax rutledge blood INR 2.4 Not Available [address] [place], [address], 11/01/2017 09:09:07 12/18/19 18 12/17/2017 urina lysis , dipst ick Leukocytes Negati ve Not Available [address] [place], [address], 12/17/2017 11:49:19 12/18/19 18 12/17/2017 urina lysis , dipst ick Nitrite negati ve Not Available [address] [place], [address], 12/17/2017 11:49:19 12/18/19 18 12/17/2017 urina lysis , dipst ick Urobilinogen .2 Not Available [address] [place], [address], 12/17/2017 11:49:19 12/18/19 18 12/17/2017 urina lysis , dipst ick Protein Negati ve Not Available [address] [place], [address], 12/17/2017 11:49:19 12/18/19 18 12/17/2017 urina lysis , dipst ick pH 7.0 Not Available [address] [place], [address], 12/17/2017 11:49:19 12/18/19 18 12/17/2017 urina lysis , dipst ick Blood Small Not Available [address] [place], [address], 12/17/2017 11:49:19 12/18/19 18 12/17/2017 urina lysis , dipst ick Specific [place] 1.015 Not Available [address] [place], [address], 12/17/2017 11:49:19 12/18/19 18 12/17/2017 urina lysis , dipst ick Ketone Negati ve Not Available [address] [place], [address], 12/17/2017 11:49:19 12/18/19 18 12/17/2017 urina lysis , dipst ick Bilirubin Negati ve Not Available [address] [place], [address], 12/17/2017 11:49:19 12/18/19 18 12/17/2017 urina lysis , dipst ick Glucose Negati ve Not Available [address] [place], [address], 12/17/2017 11:49:19 12/18/19 18 12/17/2017 urina lysis , dipst ick Appearance Clear Not Available [address] [place], [address], 12/17/2017 11:49:19 12/18/19 18 12/17/2017 urina lysis , dipst ick Color Yellow Not Available [address] [place], [address], 12/17/2017 11:49:19 12/18/19 18 12/17/2017 INR, capil aamir blood INR 3.2 Not Available [facility] [address] [place], [address], 12/17/2017 11:47:23 12/18/19 18 12/17/2017 HbA1c (hemo globi n A1c), blood HbA1c 8.2 Not Available [facility] [address] [place], [place] [address] [place], [address], 12/17/2017 11:36:03 01/15/20 18 01/14/2018 INR, capil aamir blood INR 1.9 Not Available [facility] [address] [place], [place] [address] [place], [address], 01/14/2018 09:21:50 02/05/20 18 02/04/2018 INR, capil aamir blood INR 1.6 Not Available [address] [place], [address], 02/04/2018 13:57:04 02/05/20 18 02/04/2018 HbA1c (hemo globi n A1c), blood HbA1c 7.9 Not Available [facility] [address] [place], [place] [address] [place], [address], 02/04/2018 13:56:10 09/28/19 18 09/27/2017 XR, abdom en + pelvi s No observ ation record ed. [facility] [address], [place], [address], 10/04/2017 09:28:08 10/01/19 18 09/30/2017 CT, abdom en + pelvi s, w/wo contr ast No observ ation record ed. [facility] [address], [place], [address], 10/04/2017 09:28:07 Result Notes None recorded. Problems Name Problem SNOMED Code Status Onset Date Resolution Date Notes Provider Name and Address Organization Details Recorded Time Diabetes mellitus 62299137 Active 2015 Crystal Johnny null, [place] - [facility] 8 08:29:18 Morbid obesity 286907121 Active 2015 Crystal Johnny [place] - [facility] 8 08:29:18 Essential hypertensio n 11895612 Active 2015 Crystal [place] - [facility] 8 08:29:18 Mixed hyperlipide andrés 698740291 Active 2015 Crystal Johnny [place] - [facility] 8 08:29:18 Insomnia 536385041 Active 2015 Crystal [place] - [facility] 8 08:29:18 Pain of multiple joints 08214510 Active 2015 Crystal [place] - [facility] 8 08:29:18 Chronic back pain 474667495 Active 2015 Crystal [place] - [facility] 8 08:29:18 Osteoarthri tis 601484470 Active 2015 Crystal [place] - [facility] 8 08:29:18 History of pulmonary embolus 431805277 Active 2015 Crystal Johnny [place] - [facility] 8 08:29:18 Malignant neoplasm of uterus 281454347 Completed 201504/01/2016 Gardenia Padilla [place] - [facility] 6 11:46:21 Renewal of prescriptio n Completed 201602/12/2017 Chela Ling RN [address], [place], [address] , [place] - [facility] 7 15:26:39 Dupuytren's disease of palm 062380326 Active 2016 Crystal Johnny [place] - [facility] 8 08:29:18 Pronation deformity of the foot 105276881 Active 2016 Crystal [place] - [facility] 8 08:29:18 Long-term drug therapy Active 2016 Crystal Johnny [place] - [facility] 8 08:29:18 Depressive disorder 30750678 Completed 201606/18/2017 [place] - [facility] 8 13:44:38 History of iron deficiency 568636758 Active 2016 Chela Turner nullSHUBHAM - [facility] 8 08:29:18 Malabsorpti on syndrome 12233121 Completed 201603/19/2017 SHUB[place] Wong - [facility] 7 09:41:23 Body mass index 40+ - severely obese 601342467 Active 2016 Crystal Johnny nullSHUBHAM - [facility] 8 08:29:18 Major depressive disorder 847020252 Active 2016 Crystal Johnny nullSHUBHAM - [facility] 8 08:29:18 History of calculus of kidney 912246169 Active 2017 Crystal Johnny [place] rao - [facility] 8 08:29:18 Depressive disorder 86988470 Completed 201702/04/2018 [place]UB[place] - [facility] 8 13:44:38 Anxiety 26350113 Active 2017 SHUBHAM Ortiz - [facility] 8 08:29:18 Problem Notes None recorded. Procedures Surgical History [...] Name and Address Organization Details Recorded Time 28039 Product containin g penicilli n (product) medicatio n rash Not available Not available 03/27/20162008 62130 8001 SNOMED React ion: rash; Not Available [facility] 6 09:55:09 55142 Bydureon medicatio n nausea Not available Not available 10/09/2016 49281 64 RxNorm Anisha Gallenste in null, [place] [facility] 11:05:09 Medications Name Sig Start [...] 09;Indic ation: Bacteria l Pneumoni a - (9943 ) Not Available Not Available Not Available [...] 15;Indic ation: Major Depressi ve Disorder - (3872 );Phar Brandt fied: 12/05/19 15 12:01PM Not [...] Completi on: 08/05/19 16;Indic ation: Cough - (3084 ) Not Available Not Available Not Available Biaxin 500 mg tablet take 1 tablet by oral route 2 times a day for 10 days 11/27 completed Biaxin 500 mg oral tablet;R ecorded Status: Recorded on: 08/06/19 09 3:11PM;D iscontin ued Status: Disconti nued on: 11/28/19 09 1:44PM;U ser: bishopk; Est. Completi on: 08/16/19 09;Indic ation: Bacteria l Pneumoni a - (2379 ) Not Available Not Available Not Available [...] on: 10/02/19 11;Indic ation: Depressi on - (0321 ) Not Available Not Available Not Available Celebrex 200 mg capsule take 1 capsule (200 mg) by oral route once daily 03/06 completed Celebrex 200 mg oral capsule; Recorded Status: Recorded on: 05/01/20 08 1:14PM;D iscontin ued Status: Disconti nued on: 03/06/20 09 1:47PM;U ser: woodst;I ndicatio n: Osteoart hritis - (7788 ) Not Available Not Available Not Available [...] Disconti nued on: 02/26/20 11 10:56AM; User: [facility] Not Available Not Available Not Available Midrin [...] 10;Indic ation: Iron Deficien cy Anemia - (8185 ) Not Available Not Available Not Available [...] for Obese Patient (BMI >= 30) - (1509 ) Not Available Not Available Not Available lisinopri l 30 mg tablet take 1 tablet (30 mg) by oral route once daily 11/27 completed lisinopr il 30 mg oral tablet;R ecorded Status: Recorded on: 05/01/20 08 1:14PM;D iscontin ued Status: Disconti nued on: 11/28/19 09 3:18PM;U ser: woodst;I ndicatio n: Hyperten brittaney - (3450 ) Not Available Not Available Not Available [...] active Not Available Not Available Not Available [place]om[place] 5 mg-325 mg tablet Take 0.5 tablets [...] on: 03/26/20 11;Indic ation: Depressi on - (0760 00) Not Available Not Available Not Available loratadin e 10 mg tablet take 1 tablet (10 mg) by oral route once daily 11/04 completed loratadi ne 10 mg oral tablet;R ecorded Status: Recorded on: 07/10/19 10 9:06AM;D iscontin ued Status: Disconti nued on: 11/05/19 13 9:04AM;U ser: rankinw; Est. Completi on: 10/09/19 10;Indic ation: Allergic Rhinitis - (5533 00);Prin kentrell: 07/10/19 10 Not Available Not [...] on: 03/23/20 11;Indic ation: Hyperten brittaney - (3771 ) Not Available Not Available Not Available Viibryd 40 mg tablet take 1 tablets (40 mg) by oral route once daily with food 08/11 completed Viibryd 40 mg oral tablet;R ecorded Status: Recorded on: 06/26/19 14 12:55PM; Disconti nued Status: Disconti nued on: 08/11/19 14 9:46AM;U ser: neuss;Es t. Completi on: 12/24/19 14;Indic ation: Major Depressi ve Disorder - (7549 00) Not Available Not Available Not Available Viibryd 20 mg tablet take 1 tablets (40 mg) by oral route once daily with food 06/26 completed Viibryd 20 mg oral tablet;R ecorded Status: Recorded on: 05/10/20 13 11:38AM; Disconti nued Status: Disconti nued on: 06/26/19 14 12:55PM; User: [email or web address];Danya [email or web address] Anuragroman on: 11/07/19 14;Indic ation: Major Depressi ve Disorder - (2964 ) Not Available Not Available Not Available [...] Updated DateTime 8 173.99 cm 50.3 kg/m2 895732. 04 g 82 /min 94 % 94 % 18 /min 168/84 mm[Hg] [employer] - [facility] 8 08:35:57 Date Recorded Body height Body mass index (BMI) Body weight Heart rate Oxygen saturation Oxygen saturation in Arterial blood by Pulse oximetry Respiratory rate Systolic And Diastolic Provider Name and Address Organization Details Last Updated DateTime 8 173.99 cm 49.6 kg/m2 424904. 07 g 88 /min 96 % 96 % 18 /min 142/78 mm[Hg] [place] - [facility] 8 09:19:01 Date Recorded Body height Body mass index (BMI) Body weight Heart rate Respiratory rate Oxygen saturation Oxygen saturation in Arterial blood by Pulse oximetry Systolic And Diastolic Provider Name and Address Organization Details Last Updated DateTime 8 173.99 cm 49.7 kg/m2 911845. 67 g 96 /min 18 /min 96 % 96 % 142/98 mm[Hg] Gardenia Padilla [place] - [facility] 8 11:34:15 Date Recorded Body height Body mass index (BMI) Body weight Heart rate Oxygen saturation Oxygen saturation in Arterial blood by Pulse oximetry Respiratory rate Systolic And Diastolic Provider Name and Address Organization Details Last Updated DateTime 8 173.99 cm 51.5 kg/m2 350357. 78 g 83 /min 95 % 95 % 18 /min 162/78 mm[Hg] Crystal Johnny [place] - [facility] 8 09:31:17 Date Recorded Body height Body mass index (BMI) Body weight Heart rate Respiratory rate Systolic And Diastolic Provider Name and Address Organization Details Last Updated DateTime 8 173.99 cm 48.7 kg/m2 605187. 52 g 80 /min 18 /min 160/92 mm[Hg] Gardenia Padilla [place] - [facility] 8 13:51:53 Social History Question Answer Notes LastModified by Organizat ion Details LastModified Time Tobacco Smoking Status Former Smoker Gardenia Padilla [facility] 04/01/2016 11:43:29 What Is Your Level Of Caffeine Consumption? Occasional [email or web address] Information not available 04/01/2016 Which Illicit Or Recreational Drugs Have You Used? None [email or web address] Information not available 04/01/2016 Hard Of Hearing Or Deaf In One Or Both Ears? No Information not available 04/29/2016 Legally Blind In One Or Both Eyes? No [email or web address] Information no t available 04/29/2016 Live Alone Or With Others? Alone [email or web address] Information not available 04/01/2016 What Was The Date Of Your Most Recent Tobacco Screening? 01/14/2018 Information not available 01/11/2019 What Is Your Relationship Status? Single Information not available 04/01/2016 Smoke Alarm In Home Yes [email or web address] Information not available 04/29/2016 How Much Tobacco Do You Smoke? 2 PPD [email or web address] Information not available 04/01/2016 General Stress Level Medium [email or web address] Information not available 04/01/2016 Has Tobacco Cessation Counseling Been Provided? No [email or web address] Information not available 09/06/2017 How Many Years Have You Smoked Tobacco? 15 [email or web address] Information not available 04/01/2016 Sex: Female Functional Status Question Answer Note LastModified by Organizat ion Details LastModified Time What is your level of alcohol consumption? None [email or web address] Information not available 04/01/2016 Are you currently employed? disabled [email or web address] Information not available 04/01/2016 Are you able to care for yourself independently? Yes [email or web address] Information not available 04/01/2016 What is your exercise level? as tolerated [email or web address] Information not available 04/01/2016 Mental Status None recorded. Family History Relationship Description Onset Age of this Age Resolved Age Notes LastModified by Organization Details LastModified Time Mother Peripheral vascular disease [email or web address] Not available 2015 11:41:14 Father Diabetes mellitus [email or web address] Not available 2015 11:42:40 Father Coronary arterioscler osis [email or web address] Not available 2015 11:43:11 Maternal Grandfather Coronary [...] virus, quadrivalent, PF 6 completed Not Available [facility] 07/08/2019 03:54:16 Pneumococcal conjugate PCV 13 6 completed Chela Turner null, [place] - [facility] 03/08/2018 08:29:19 influenza, unspecified formulation 8 completed Not Available [facility] 07/22/2019 02:21:47 influenza, unspecified formulation 2 completed Not Available [facility] 07/22/2019 02:21:47 influenza, unspecified formulation 0 completed Not Available [facility] 07/22/2019 02:21:47 influenza, unspecified formulation 4 completed Not Available [facility] 07/22/2019 02:21:46 influenza, unspecified formulation 5 completed Not Available [facility] 07/22/2019 02:21:46 influenza, unspecified formulation 1 completed Not Available [facility] 07/22/2019 02:21:46 Tdap 3 completed Not Available [facility] 07/22/2019 02:21:46 Influenza, split virus, quadrivalent, preservative 8 completed Not Available [facility] 07/08/2019 03:54:49 pneumococcal polysaccharide PPV23 4 completed Not Available [facility] 07/22/2019 02:21:58 Past Encounters Encounter ID Performer Location Encounter Start Date Encounter Closed Date Diagnosis/Indication Diagnosis SNOMED-CT Code Diagnosis ICD10 Code Diagnosis IMO Codes Diagnosis Note [id number] Javier Nguyen MD [facility] [address] [facility] [place] [address] 04/01/2016 10:30:00 04/01/2016 12:43:42 Foot pain 82923804 M79.672 Administra tion of influenza vaccine 57817944 Z23 Osteoarthritis 223010548 M19.90 Pain of mu ltiple joints 98087331 M25.50 Insomnia 042956627 G47.0 0 Essential hypertension 03689772 I10 Diabetes mellitus 769526 09 E11.9 Influenza vaccine needed 8717072340 106 Z23 [id number] [facility] [address] [place] [address] 03/31/2010 00:00:00 [id number] [facility] [address] [place] [address] 06/04/2010 00:00:00 [id number] [facility] [address] [place] [address] 09/24/2010 00:00:00 [id number] [facility] [address] [place] [address] 10/08/2010 00:00:00 [id number] [facility] [address] [place] [address] 10/15/2010 00:00:00 [id number] [facility] [address] [place] [address] 10/21/2010 00:00:00 [id number] [facility] [address] [place] [address] 11/18/2010 00:00:00 [id number] [facility] [address] [place] [address] 12/31/2010 00:00:00 [id number] [facility] [address] [place] [address] 02/25/2011 00:00:00 [id number] [facility] [address] [place] [address] 03/04/2011 00:00:00 [id number] [facility] [address] [place] [address] 05/05/2011 00:00:00 [id number] [facility] [address] [place] [address] 06/16/2011 00:00:00 [id number] [facility] [address] [place] [address] 08/04/2011 00:00:00 [id number] [facility] [address] [place] [address] 08/18/2011 00:00:00 [id number] [facility] [address] [place] [address] 08/21/2011 00:00:00 [id number] [facility] [address] [place] [address] 08/08/2012 00:00:00 [id number] [facility] [address] [place] [address] 09/05/2012 00:00:00 [id number] [facility] [address] [place] [address] 10/07/2012 00:00:00 [id number] [facility] [address] [place] [address] 11/04/2012 00:00:00 [id number] [facility] [address] [place] [address] 12/05/2012 00:00:00 [id number] [facility] [address] [place] [address] 12/28/2012 00:00:00 [id number] [facility] [address] [place] [address] 01/18/2013 00:00:00 [id number] [facility] [address] [place] [address] 09/04/2011 00:00:00 [id number] [facility] [address] [place] [address] 12/07/2011 00:00:00 [id number] [facility] [address] [place] [address] 01/29/2014 00:00:00 [id number] [facility] [address] [place] [address] 02/27/2014 00:00:00 [id number] [facility] [address] [place] [address] 03/27/2014 00:00:00 [id number] [facility] [address] [place] [address] 04/25/2014 00:00:00 [id number] [facility] [address] [place] [address] 05/21/2014 00:00:00 [id number] [facility] [address] [place] [address] 06/22/2014 00:00:00 [id number] [facility] [address] [place] [address] 07/24/2014 00:00:00 [id number] [facility] [address] [place] [address] 02/10/2012 00:00:00 [id number] [facility] [address] [place] [address] [address] 10/05/2014 00:00:00 [id number] [facility] [address] [place] [address] [address] 05/02/2012 00:00:00 [id number] [facility] [address] [place] [address] 11/02/2014 00:00:00 [id number] [facility] [address] [place] [address] 07/04/2012 00:00:00 [id number] [facility] [address] [place] [place] [address] [address] 12/04/2014 00:00:00 [id number] [facility] [address] [place] [address] 01/18/2015 00:00:00 [id number] [facility] [address] [place] [address] [address] 02/21/2013 00:00:00 [id number] [facility] [address] [place] [address] [address] 02/18/2015 00:00:00 [id number] [facility] [address] [place] [address] [address] 04/10/2013 00:00:00 [id number] [facility] [address] [place] [address] 04/02/2015 00:00:00 [id number] [facility] [address] [place] [address] [address] 04/17/2013 00:00:00 [id number] [facility] [address] [place] [address] 05/24/2015 00:00:00 [id number] [facility] [address] [place] [address] 05/10/2013 00:00:00 [id number] [facility] [address] [place] [address] 06/26/2013 00:00:00 [id number] [facility] [address] [place] [address] 08/11/2013 00:00:00 [id number] [facility] [address] [place] [address] 09/08/2013 00:00:00 [id number] [facility] [address] [place] [address] 10/02/2013 00:00:00 [id number] [facility] [address] [place] [address] 11/03/2013 00:00:00 [id number] [facility] [address] [place] [address] 11/17/2013 00:00:00 [id number] [facility] [address] [place] [address] 12/01/2013 00:00:00 [id number] [facility] [address] [place] [address] 12/25/2013 00:00:00 [id number] [facility] [address] [place] [address] 01/29/2014 00:00:00 [id number] Javier Nguyen MD [address] [place] [address] 04/29/2016 10:04:20 04/29/2016 11:07:48 Anticoagulant therapy 830328457 Z79.01 Warfarin m onitoring status 995028849 Z51.81 Chronic back pain 387782 002 G89.29 History of pulmonary embolus 919602322 Z86.711 Osteoarthritis 141607676 M19.90 Pain of mu ltiple joints 45840474 M25.50 Morbid obesity 888466859 E66.01 Diabetes mellitus 337750 09 E11.9 [id number] Javier Nguyen MD [address] [place] [address] 05/29/2016 09:21:11 05/29/2016 10:08:44 History of pulmonary embolus 403861012 Z86.711 Anticoagulant therapy 18 9126619 Z79.01 Renewal of prescription 217628847 Z76.0 Pain of mu ltiple joints 81665507 M25.50 [id number] Javier Nguyen MD [address] [place] [address] 07/10/2016 09:20:32 07/10/2016 11:53:48 Diabetes mellitus 68463668 E11.9 Essential hypertension 86846069 I10 Chronic back pain 181028 002 G89.29 Pain of mu ltiple joints 85723416 M25.50 Warfarin m onitoring status 937180902 Z51.81 patient to start 12.50mg today and start 10 mg wednesday and / 7.50mg the rest of the days Fatigue 81226808 R53.83 Mixed hyperlipidemia 267 817166 E78.2 [id number] Javier Nguyen MD [address] [place] [address] 08/07/2016 08:22:29 08/07/2016 09:19:57 Osteoarthritis 841609317 M19.90 Chronic back pain 754824 002 G89.29 Warfarin m onitoring status 723123587 Z51.81 patient to start 12.50mg today and start 10 mg wednesday and / 7.50mg the rest of the days Renewal of prescription 412886141 Z76.0 Pain of mu ltiple joints 28434758 M25.50 Morbid obesity 802850045 E66.01 Dupuytren' s disease of palm 102419448 M72.0 Pronation deformity of the foot 837503872 M21.6X9 [id number] Javier Nguyen MD [address] [place] [address] 09/04/2016 08:44:37 09/04/2016 09:37:47 Diabetes mellitus 39023029 E11.9 Essential hypertension 60403220 I10 Chronic back pain 928275 002 G89.29 Pain of mu ltiple joints 30794706 M25.50 Warfarin m onitoring status 822542246 Z51.81 10mg x 3 days and 7.5mg x 4 days Long-term drug therapy 842348087 Z79.899 Depressive disorder 3548 9007 F32.9 [id number] Javier Nguyen MD [address] [place] [address] 10/09/2016 09:43:19 10/09/2016 13:44:18 Warfarin monitoring status 657574704 Z51.81 10mg x 3 days and 7.5mg x 4 days Abdominal pain 13799711 R10.9 Pain of mu ltiple joints 02353711 M25.50 Chronic back pain 636091 002 G89.29 Morbid obesity 054318643 E66.01 Depressive disorder 3548 9007 F32.9 [id number] Javier Nguyen MD [address] [place] [place] [address] 11/13/2016 08:10:12 11/13/2016 08:53:33 Long-term drug therapy 909715095 Z79.899 Anticoagulant therapy 18 5988183 Z79.01 Warfarin m onitoring status 027745385 Z51.81 5mg x 4 days and 7.5mg x 3 days Body mass index 40+ - severely obese 880733327 Z68.41 [id number] Javier Nguyen MD [address] [place] [address] 12/11/2016 09:50:44 12/11/2016 11:31:16 Depressive disorder 39168266 F32.9 Essential hypertension 61367027 I10 Body mass index 40+ - severely obese 264142525 Z68.43 Uncontroll ed type 2 diabetes mellitus 944888989 E11.65 Warfarin m onitoring status 624604348 Z51.81 5mg x 4 days and 7.5mg x 3 days [id number] Javier Nguyen MD [address] [place] [address] 01/15/2017 11:25:10 01/15/2017 13:46:52 Depressive disorder 67319226 F32.9 Pain of mu ltiple joints 54678607 M25.50 Warfarin m onitoring status 084749510 Z51.81 5mg x 4 days and 7.5mg x 3 days Uncontroll ed type 2 diabetes mellitus 392122924 E11.65 [id number] Javier Nguyen MD [place] [address] [place] [address] 02/15/2017 08:21:14 02/15/2017 09:21:02 Diabetes mellitus 57623551 E11.9 Pain of mu ltiple joints 24913062 M25.50 Chronic back pain 040333 002 G89.29 Depressive disorder 3548 9007 F32.9 Warfarin m onitoring status 713359646 Z51.81 10mg x 43days and 7.5mg x 4 days Body mass index 40+ - severely obese 511304895 Z68.43 [id number] Javier Nguyen MD [address] [place] [address] 03/19/2017 08:25:29 03/19/2017 09:56:53 Diabetes mellitus 62353644 E11.9 Pain of mu ltiple joints 10776585 M25.50 Chronic back pain 374977 002 G89.29 Renewal of prescription 560795102 Z76.0 Warfarin m onitoring status 642211007 Z51.81 10mg x 2days and 7.5mg x 5 days [id number] Javier Nguyen MD [address] [place] [address] 04/19/2017 09:02:35 04/19/2017 10:38:19 Chronic back pain 176908639 G89.29 Pain of mu ltiple joints 33069860 M25.50 Anticoagulant therapy 18 1476703 Z79.01 Body mass index 40+ - severely obese 638114175 Z68.43 Essential hypertension 28796266 I10 Renewal of prescription 650956409 Z76.0 [id number] Javier Nguyen MD [place] [address] [place] [address] 05/17/2017 08:15:40 05/17/2017 09:36:25 Depressive disorder 22225989 F32.9 Essential hypertension 91592882 I10 Renewal of prescription 564316313 Z76.0 Uncontroll ed type 2 diabetes mellitus 394051182 E11.65 Influenza- like symptoms 430369128 R68.89 Warfarin m onitoring status 126524427 Z51.81 10mg x 2days and 7.5mg x 5 days Body mass index 40+ - severely obese 117631569 Z68.43 Chronic back pain 086567 002 G89.29 Insomnia 925074133 G47.0 0 [id number] Javier Nguyen MD [address] [place] [address] 06/09/2017 08:14:09 06/09/2017 09:50:53 Depressive disorder 06147118 F32.9 Chronic back pain 739294 002 G89.29 Pain of mu ltiple joints 47282842 M25.50 Mixed hyperlipidemia 267 462933 E78.2 Essential hypertension 64490373 I10 Renewal of prescription 586519480 Z76.0 Long-term drug therapy 918661242 Z79.899 Anticoagulant therapy 18 2883088 Z79.01 Warfarin m onitoring status 773456192 Z51.81 10mg x 2days and 7.5mg x 5 days Uncontroll ed type 2 diabetes mellitus 571762992 E11.65 [id number] Javier Nguyen MD [address] [place] [address] 07/12/2017 08:51:06 07/12/2017 10:49:33 Major depressive disorder 948775998 F32.9 History of iron deficiency 789009122 Z86.39 Long-term drug therapy 659756300 Z79.899 Osteoarthritis 365233911 M19.90 Insomnia 221094817 G47.0 0 Mixed hyperlipidemia 267 548778 E78.2 Essential hypertension 57285060 I10 Diabetes mellitus 606616 09 E11.9 Anticoagulant therapy 18 3519247 Z79.01 Warfarin m onitoring status 782785021 Z51.81 10mg x 3days and 7.5mg x 4 days Body mass index 40+ - severely obese 318485913 Z68.43 Uncontroll ed type 2 diabetes mellitus 181901339 E11.65 Chronic back pain 615083 002 G89.29 Administra tion of influenza vaccine 16531723 Z23 [id number] Rita Herring, MS, RD, LD [address] [place] [address] 07/15/2017 08:30:45 07/15/2017 09:14:28 Diabetes mellitus 69433665 E13.8 [id number] Javier Nguyen MD [address] [place] [address] 08/09/2017 08:26:57 08/09/2017 10:10:43 Essential hypertension 11432418 I10 Pain of mu ltiple joints 77665197 M25.50 Warfarin m onitoring status 928058084 Z51.81 10mg x 4days and 7.5mg x 3days--no med x 2 days Chronic back pain 955197 002 G89.29 Acute sinusitis 06773636 J01.90 Mixed hyperlipidemia 267 987848 E78.2 [id number] Javier Nguyen MD [address] [place] [address] 09/06/2017 09:44:54 09/06/2017 11:28:33 Diabetes mellitus 29385611 E11.9 Morbid obesity 296305252 E66.01 Anticoagulant therapy 18 2869166 Z79.01 Warfarin m onitoring status 896108887 Z51.81 10mg x 4days and 7.5mg x 3days Essential hypertension 15425495 I10 Mixed hyperlipidemia 267 721641 E78.2 Chronic back pain 545125 002 G89.29 [id number] Javier Nguyen MD [address] [place] [address] 10/04/2017 08:12:51 10/04/2017 09:05:40 Long-term drug therapy 076750559 Z79.899 Anticoagulant therapy 18 6894112 Z79.01 Warfarin m onitoring status 561843561 Z51.81 10mg x 4days and 7.5mg x 3days Chronic back pain 895415 002 G89.29 Body mass index 40+ - severely obese 142119967 Z68.43 Pain of mu ltiple joints 57370366 M25.50 Mixed hyperlipidemia 267 386958 E78.2 Essential hypertension 56126269 I10 Diabetes mellitus 649337 09 E11.9 Calculus o f kidney and ureter 993382282 N20.2 [id number] Javier Nguyen MD [address] [place] [address] 11/01/2017 08:39:25 11/01/2017 11:20:38 Warfarin monitoring status 817698470 Z51.81 10mg x 4days and 7.5mg x 3days Anticoagulant therapy 18 7187766 Z79.01 Depressive disorder 3548 9007 F32.9 [id number] Javier Nguyen MD [address] [place] [address] 12/17/2017 09:54:35 12/17/2017 11:49:34 Chronic back pain 295913214 G89.29 Essential hypertension 16926756 I10 Uncontroll ed type 2 diabetes mellitus 434309152 E11.65 Persistent insomnia 1919 54909 G47.09 Warfarin m onitoring status 880416108 Z51.81 10mg x 4days and 5 mg x 3days History of pulmonary embolus 776801839 Z86.711 Chronic low back pain 27 7476478 M54.5 History of calculus of kidney 607588284 Z87.442 Diabetes mellitus 441808 09 E11.9 Morbid obesity 460272888 E66.01 Depressive disorder 3548 9007 F32.9 Anxiety 30973189 F41.9 [id number] Javier Nguyen MD [address] [place] [address] 01/14/2018 09:07:21 01/14/2018 10:35:45 Warfarin monitoring status 675825252 Z51.81 10 mg x 4 days7.5 mg x 3 days new dose Anticoagulant therapy 18 0892034 Z79.01 [id number] Javier Nguyen MD [address] [place] [address] 02/04/2018 13:20:06 02/04/2018 14:35:08 Pain of multiple joints 03442842 M25.50 Osteoarthritis 314449556 M19.90 Essential hypertension 89902997 I10 Uncontroll ed type 2 diabetes mellitus 599669412 E11.65 Warfarin m onitoring status 915026591 Z51.81 10 mg x 4 days7.5 mg x 3 days new dose Chronic back pain 872371 002 G89.29 Health Concerns Section Related Observation [...] PLUS (MEDICARE REPLACEMENT HMO) [id number] Carol Ann F Sonia [id number] Carol Ann F Sonia 08/17/2017 1 [place]IC[place] Carol Ann F Sonia [id number] A Carol Ann F Sonia 03/26/2018 N[employer] NATIONAL - MEDICARE [facility] - [facility] (MEDICARE) Carol Ann F Sonia [id number] A Carol Ann F Sonia Notes Date Note Type Note Provider Name and Address Organization Details Recorded Time 8 text/html Musculoskeletal PainReported by PatientHPIFor associated symptoms, patient reportsweak limbsandnumbness of the legs/feetbut reportsno fever. For severity, patient reportssame. For duration, patient reportspresent for >12 months. For context, patient reportsprior back problems,used medication for back pain, andhad evaluations by back specialist. For alleviating factors, patient reportsrestandrelieved by changing position. For aggravating factors, patient reportsmovement/positioning ,bending over, andtwisting. For adl (activities of daily living), patient reportsimprove with medication. For location, (chonic joint and back pain--braces off legs today but usually worn). For quality, (varies). For timing, (chronic with intermittent worsening). Diabetes F/UReported by PatientHPIFor labs, patient reportslast a1c result: 7.2. For context, patient reportsnormal range of home blood sugars (in the low 100s),seeing eye doctor regularly,not missing doses of medications, andno side effects from medications. For associated symptoms, patient reportsno weight gain,no weight loss,no dizziness,no sweats,no headaches,no confusion,no increased thirst,no increased appetite, andno increased urination. Care Management - HypertensionReported by PatientHPIFor associated symptoms, patient reportscalf muscle crampsbut reportsno dizziness,no lightheadedness,no chest pain,no shortness of breath,no palpitations,no blurred vision,no confusion,no headaches, andno fatigue. For prognosis, patient reportsexpected outcome: improveandprognosis: good. For self care, patient reportsusing an adelina inhibitor(noted increased hctz and now muscle cramps). For severity, patient reportssymptoms are improvinganddoes not interfere with daily activities. Care Management - HyperlipidemiaReported by PatientHPIFor prognosis, patient reportsexpected outcome: improveandprognosis: guarded. For self care, patient reportsrecent hospitalization/er visit? noandusing an adelina inhibitor. For control, patient reportsimproving. For complications, patient reportsno coronary artery disease,no heart attack,no cardiovascular disease,no pancreatitis, andno stroke. inr check. Has been vomiting. Anisha rao, [place] - [facility] 10/04/2017 15:49:26 8 text/html Musculoskeletal PainReported by PatientHPIFor associated symptoms, patient reportsweak limbsandnumbness of the legs/feetbut reportsno fever. For severity, patient reportssame. For duration, patient reportspresent for >12 months. For context, patient reportsprior back problems,used medication for back pain, andhad evaluations by back specialist. For alleviating factors, patient reportsrestandrelieved by changing position. For aggravating factors, patient reportsmovement/positioning ,bending over, andtwisting. For adl (activities of daily living), patient reportsimprove with medication. For location, (chonic joint and back pain--braces off legs today but usually worn). For quality, (varies). For timing, (chronic with intermittent worsening). Diabetes F/UReported by PatientHPIFor labs, patient reportslast a1c result: 7.2. For context, patient reportsnormal range of home blood sugars (in the low 100s),seeing eye doctor regularly,not missing doses of medications, andno side effects from medications. For associated symptoms, patient reportsno weight gain,no weight loss,no dizziness,no sweats,no headaches,no confusion,no increased thirst,no increased appetite, andno increased urination. Care Management - HypertensionReported by PatientHPIFor associated symptoms, patient reportscalf muscle crampsbut reportsno dizziness,no lightheadedness,no chest pain,no shortness of breath,no palpitations,no blurred vision,no confusion,no headaches, andno fatigue. For prognosis, patient reportsexpected outcome: improveandprognosis: good. For self care, patient reportsusing an adelina inhibitor(noted increased hctz and now muscle cramps). For severity, patient reportssymptoms are improvinganddoes not interfere with daily activities. Care Management - HyperlipidemiaReported by PatientHPIFor prognosis, patient reportsexpected outcome: improveandprognosis: guarded. For self care, patient reportsrecent hospitalization/er visit? noandusing an adelina inhibitor. For control, patient reportsimproving. For complications, patient reportsno coronary artery disease,no heart attack,no cardiovascular disease,no pancreatitis, andno stroke. inr check. Depression has increased. Wants to discuss other options. Anisha rao [place] - [facility] 11/01/2017 14:51:18 8 text/html Musculoskeletal PainReported by PatientHPIFor associated symptoms, patient reportsweak limbsandnumbness of the legs/feetbut reportsno fever(wears braces). For severity, patient reportssame. For duration, patient reportspresent for >12 months. For context, patient reportsprior back problemsandused medication for back pain. For alleviating factors, patient reportsrestandrelieved by changing position. For aggravating factors, patient reportsmovement/positioning ,bending over, andtwisting. For adl (activities of daily living), patient reportsimprove with medication. For location, (chronic joint and back pain). For quality, (varies). Care Management - HypertensionReported by PatientHPIFor self care, patient reportsunder emotional stressbut reportsusing an adelina inhibitor(caring for mom and sister). For severity, patient reportssymptoms are worsening. For prognosis, patient reportsexpected outcome: improveandprognosis: guarded. For associated symptoms, patient reportsno dizziness,no lightheadedness,no chest pain,no shortness of breath,no palpitations,no calf muscle cramps,no blurred vision,no confusion,no headaches, andno fatigue. PE history SHUBHAM [facility] 01/14/2018 17:39:13 8 text/html inr check. SHUBHAM [facility] 01/14/2018 10:36:19 8 text/html Diabetes F/UReported by PatientHPIFor associated symptoms, patient reportsweight loss (19 lbs)but reportsno weight gain,no dizziness,no sweats,no headaches,no confusion,no increased thirst,no increased appetite,no increased urination, andno blurred vision. For labs, patient reportslast a1c result: 7.9. For context, patient reportsnot missing doses of medicationsandno side effects from medications. Musculoskeletal PainReported by PatientHPIFor severity, patient reportssame. For duration, patient reportspresent for >12 months. For context, patient reportsprior back problemsandused medication for back pain(joint pain chronic). For alleviating factors, patient reportsrestandrelieved by changing position. For aggravating factors, patient reportsmovement/positioning ,bending over, andtwisting. For associated symptoms, patient reportsno fever,no weak limbs, andno incontinence(peripheral neuropathy). For adl (activities of daily living), patient reportsimprove with medication. For location, (chronic joint and back pain). For quality, (varies). For timing, (chronic with intermittent worseniing). Care Management - HypertensionReported by PatientHPIFor self care, patient reportsunder emotional stress. For prognosis, patient reportsexpected outcome: improveandprognosis: guarded. hx PE with warfarin therapy SHUBHAM [facility] 02/25/2018 11:33:02 OBGyn Episode No OBEpisode recorded.
== END 2025-04-09 23:59 ==
LOC: LAB.DROPOF 04-11 12:33
PROVIDERS: PCP Family Medicine; Visit Provider Family Medicine
DX: E78.5 Hyperlipidemia, unspecified (principal); E11.9 Type 2 diabetes mellitus without complications; E66.9 Obesity, unspecified; I10 Essential (primary) hypertension; R53.83 Other fatigue; Z95.828 Presence of other vascular implants and grafts
CPT/HCPCS: 80053; 80061; 83540; 83550; 84443; 85025

== ENCOUNTER 2025-05-09 10:16 | Outpatient (CLI) | payer MEDICARE, SELFPAY ==
[2025-05-09 15:31] LABS: INR 1.71 (0.9-1.1); Prothrombin Time 18.2 seconds (10.1-12.5)
== END 2025-05-09 23:59 ==
LOC: LAB.DROPOF 05-10 09:31
PROVIDERS: PCP Family Medicine; Visit Provider Family Medicine
DX: Z51.81 Encounter for therapeutic drug level monitoring (principal); Z79.01 Long term (current) use of anticoagulants
CPT/HCPCS: 85610